=== PATIENT | female | born 1975 | race Caucasian/White ===

== ENCOUNTER → 2017-04-02 10:21 | Outpatient (CLI) | payer OTHER, SELFPAY ==
[2017-04-02 13:45] LABS: Color, Urine Yellow (Yellow); Glucose, Dipstick Normal (Normal); Ketone-Dipstick Negative (Negative); Leukocyte Esterase-Dipstick 100 /ul (Negative); Nitrite-Dipstick Negative (Negative); Occult Blood-Urine Negative /ul (Negative); Protein-Dipstick Negative (Negative); Urine Bilirubin Dipstick Negative (Negative); Urine Clarity Sl. Cloudy (Clear); Urine Urobilinogen Normal (Normal)
[2017-04-02 13:52] LABS: Absolute Lymphocyte Count 1.57 X10^3/ul (0.83-4.51); Absolute Neutrophil Count 4.9 X10^3/uL (2.0-7.7); Basophil# 0.02 X10^3/uL; Basophil% 0.3 % (0-1); Eosinophils% 1.4 % (0-5); Hematocrit 38.9 % (37-47); Hemoglobin 12.9 g/dl (12.0-15.0); Lymphocyte # 1.57 X10^3/ul (4.0); Lymphocyte % 22.1 % (19-41); Mean Corp Hgb Conc 33.2 g/gl (32-36); Mean Corpuscular Hgb 30.2 pg (27.0-32.0); Mean Corpuscular Volume 91.1 fL (81-99); Mean Platelet Vol. 11.3 fl (6.2-12.0); Monocyte# 0.48 X10^3/uL; Monocyte% 6.8 % (0-10); Neutrophil # 4.91 X10^3/uL (2.7-7.7); Neutrophil % 69.3 % (47-70); Platelet Count 257 K/mm3 (150-450); RBC Distribution Width CV 12.7 % (11.6-14.6); RBC Distribution Width SD 42.1 fl (35.1-43.9); Red Blood Count 4.27 M/mm3 (4.2-5.4); White Blood Count 7.1 K/mm3 (4.4-11.0)
[2017-04-02 13:53] LABS: POSITIVE COUNT NO; POSITIVE DIFFERENTIAL NO; POSITIVE MORPHOLOGY NO
[2017-04-02 14:08] LABS: Thyroid Stim Hormone (TSH) 1.06 uIU/mL (0.358-3.74)
[2017-04-02 14:17] LABS: Amphetamine Urine VISTA NEGATIVE (<1000 ng/mL); Barbiturate Urine VISTA NEGATIVE (< 200 ng/mL); Benzodiazepine Urine VISTA NEGATIVE (< 200 ng/mL); Cocaine Urine VISTA NEGATIVE (< 300 ng/mL); Ecstacy Urine VISTA NEGATIVE (< 500 ng/mL); Methadone Urine VISTA NEGATIVE (< 300 ng/mL); PCP Urine VISTA NEGATIVE (< 25 ng/mL); THC Urine VISTA NEGATIVE (< 50 ng/mL); Vista UDS pH Range 7
[2017-04-02 14:51] LABS: HIV - WCH Non-Reactive (Nonreactive); Rubella IgG 304.3 IU/mL
[2017-04-03 12:50] LABS: HEPATITIS B SURFACE AG Negative (Negative); Hep C Antibodies <0.1 s/co ratio (0.0-0.9)
[2017-04-09 03:55] LABS: Prenatal RPR NONREACTIVE (NONREACTIVE)
== END ==
PROVIDERS: Visit Provider Obstetrics & Gynecology
DX: Z34.81 Encounter for supervision of other normal pregnancy, first trimester (principal)
CPT/HCPCS: 36415; 80307; 81002; 84443; 85025; 86703; 86762; 86803; 87340

== ENCOUNTER → 2017-05-19 13:06 | Outpatient (CLI) | payer OTHER, SELFPAY ==
--- NOTE | 2017-05-19 13:08 | ECHOD_ITS ---
Reason For Study: bicuspid aortic valve Procedure This was a 2D Doppler, Color Flow transthoracic echocardiogram. Exam performed in department. Left Ventricle Normal LV size. Left ventricular systolic function is normal. The estimated ejection fraction is 60 %. No regional wall motion abnormalities noted. Right Ventricle Normal RV size. Normal systolic function. Atria Normal left atrium. Normal right atrium. Mitral Valve Normal mitral valve. Mild (1+) eccentric mitral valve insufficiency. Tricuspid Valve Normal tricuspid valve. Mild (1+) tricuspid valve insufficiency. Pulmonary artery systolic pressure is 26 mmHg. Aortic Valve Bicuspid aortic valve. There is no aortic stenosis. Pulmonic Valve Normal pulmonic valve. Great Vessels Normal aortic root. The pulmonary artery is normal size. Normal inferior vena cava. Pericardium/Pleural No pericardial effusion. MMode/2D Measurements & Calculations LVIDd: 4.9 cm IVSd: 0.91 cm LVOT diam: 1.9 cm LVIDs: 3.0 cm LVPWd: 0.96 cm LVOT area: 2.8 cm2 RVDd: 2.8 cm FS: 38.6 % Ao root diam: 2.5 cm LAV(MOD-bp): 39.2 ml LA A4 area: 16.4 cm2 LA dimension: 3.0 cm LAV(MOD-bp) Indexed: 23.7 ml/m2 LAV(MOD-sp2): 36.1 ml LAV(MOD-sp4): 41.2 ml RA A4 area: 16.2 cm2 Doppler Measurements & Calculations MV E max ivan: 83.6 cm/sec Lat Peak E' Ivan: 17.9 cm/sec Med Peak E' Ivan: 13.4 cm/sec MV A max ivan: 71.4 cm/sec E/E' lat: 4.7 E/E' med: 6.2 MV E/A: 1.2 Ao V2 max: 198.4 cm/sec LV V1 max: 142.9 cm/sec SV(LVOT): 74.9 ml Ao max P.7 mmHg LV V1 max P.2 mmHg Ao V2 mean: 137.5 cm/sec LV V1 mean P.0 mmHg Ao mean P.4 mmHg LV V1 mean: 93.3 cm/sec Ao V2 VTI: 39.5 cm LV V1 VTI: 27.0 cm NIKKI(I,D): 1.9 cm2 NIKKI(V,D): 2.0 cm2 PA V2 max: 108.1 cm/sec TR max ivan: 232.9 cm/sec TR max P.7 mmHg Interpretation Summary Normal LV size. Left ventricular systolic function is normal. The estimated ejection fraction is 60 %. Mild (1+) eccentric mitral valve insufficiency. Bicuspid aortic valve. There is no aortic stenosis. Ordering Physician: Maria Umana Referring Physician: Ana Rea Performed By: Yoli Hdz, VENTURA, RVT
== END ==
PROVIDERS: Family Provider Internal Medicine; PCP Internal Medicine; Visit Provider Obstetrics & Gynecology
DX: Q23.1 Congenital insufficiency of aortic valve (principal)
CPT/HCPCS: 93306

== ENCOUNTER → 2017-06-07 09:22 | Outpatient (CLI) | payer OTHER, SELFPAY | PROVIDERS: Family Provider Internal Medicine; PCP Internal Medicine | DX: O09.899 Supervision of other high risk pregnancies, unspecified trimester (principal); Z3A.00 Weeks of gestation of pregnancy not specified | CPT/HCPCS: 36415 ==

== ENCOUNTER → 2017-08-06 11:24 | Outpatient (CLI) | payer OTHER, SELFPAY ==
[2017-08-06 13:49] LABS: Hematocrit 33.4 % (37-47); Mean Corp Hgb Conc 32.9 g/gl (32-36); Mean Corpuscular Hgb 29.2 pg (27.0-32.0); Mean Corpuscular Volume 88.6 fL (81-99); Mean Platelet Vol. 11.2 fl (6.2-12.0); Platelet Count 238 K/mm3 (150-450); RBC Distribution Width CV 12.3 % (11.6-14.6); RBC Distribution Width SD 39.6 fl (35.1-43.9); Red Blood Count 3.77 M/mm3 (4.2-5.4); White Blood Count 8.1 K/mm3 (4.4-11.0)
[2017-08-06 13:50] LABS: Scan Indicated on CBC? Y/N NO
[2017-08-06 13:55] LABS: Glucose Challenge Gest 1H 50g 143 mg/dL (70-140)
== END ==
PROVIDERS: Visit Provider Obstetrics & Gynecology
DX: Z34.82 Encounter for supervision of other normal pregnancy, second trimester (principal)
CPT/HCPCS: 36415; 82950; 85027

== ENCOUNTER → 2017-08-18 08:12 | Outpatient (CLI) | payer OTHER, SELFPAY ==
[2017-08-18 09:14] LABS: Glucose GTT-Gestation. Fasting 92 mg/dL (<105)
[2017-08-18 10:57] LABS: Glucose GTT-Gestational 1 Hr 166 mg/dL (<190)
[2017-08-18 11:54] LABS: Glucose GTT-Gestational 2 Hr 161 mg/dL (<165)
[2017-08-18 12:52] LABS: Glucose GTT-Gestational 3 Hr 126 L (<145)
== END ==
PROVIDERS: Family Provider Internal Medicine; PCP Internal Medicine; Visit Provider Obstetrics & Gynecology
DX: O24.912 Unspecified diabetes mellitus in pregnancy, second trimester (principal); Z3A.00 Weeks of gestation of pregnancy not specified
CPT/HCPCS: 36415; 82951; 82952

== ENCOUNTER → 2017-09-27 08:53 | Outpatient (CLI) | payer OTHER, SELFPAY | PROVIDERS: Family Provider Internal Medicine; PCP Internal Medicine; Visit Provider Obstetrics & Gynecology Maternal & Fetal Medicine | DX: R31.29 Other microscopic hematuria (principal) | CPT/HCPCS: 87086; 87088 ==

== ENCOUNTER → 2017-10-14 19:00 | Outpatient (CLI) | payer OTHER, SELFPAY ==
[2017-10-14 20:30] LABS: Group B Strep DNA By PCR Negative (Negative); Internal Control PASS; Probe Check PASS; Specimen Processing Control PASS
== END ==
PROVIDERS: Family Provider Internal Medicine; PCP Internal Medicine; Visit Provider Obstetrics & Gynecology
DX: Z36.85 Encounter for antenatal screening for Streptococcus B (principal)
CPT/HCPCS: 87081; 87653

== ENCOUNTER 2017-10-21 17:29 | Outpatient (CLI) | payer OTHER, SELFPAY ==
[2017-10-21 17:43] VITALS: BMI 26.4
--- NOTE | 2017-10-21 20:00 | OB.TRI.NOTE ---
History of Present Illness Reason For Visit: NST Final ROBBIN: 11/06/17 Gestational age: 37 weeks 5 days History of Present Illness: 41yo @ 37 5/7wga with h/o GDM sent for NST. Allergies ibuprofen Allergy (Verified 10/20/17 12:09) Rash - Pertinent Past Medical History Medical History: Past Medical History (Last Reviewed 10/20/17 @ 12:10 by Maria Dickens) Bicuspid aortic valve (Chronic) HELLP syndrome MTHFR gene mutation Surgical History: Past Surgical History (Last Reviewed 10/20/17 @ 12:10 by Maria Dickens) History of Physical Exam Vitals: avss NST - FHR Rate Baby A Baseline: 130 Variability:: Moderate Accelerations:: 15 x 15 Decelerations:: None NST Reactive:: Yes FHR Category:: Category I Uterine Activity:: 03/17 Impression/Plan 41yo @ 37 5/7wga with reactive NST, CAt I FHR -d/c home
== END 2017-10-21 19:15 | disposition home or self-care (01) ==
LOC: WPOUT 17:29 → WP 17:31
PROVIDERS: Family Provider Internal Medicine; PCP Internal Medicine; Visit Provider Obstetrics & Gynecology
DX: O24.419 Gestational diabetes mellitus in pregnancy, unspecified control (principal); Z3A.37 37 weeks gestation of pregnancy
CPT/HCPCS: 59025

== ENCOUNTER 2017-11-02 05:30 | Inpatient (IN) | payer OTHER, SELFPAY ==
[2017-10-28 09:47] VITALS: BMI 26.3
[2017-11-02] VITALS (21 sets, daily range): BP systolic 103–139; BP diastolic 59–78; PULSE 56–103; RESP 15–18; TEMP 36.1–36.8; O2SAT 94–100
[2017-11-02] MEDS: Lactated Ringers 1,000 ML 999 ML IV (05:55)
[2017-11-02 06:23] LABS: Absolute Lymphocyte Count 1.91 X10^3/ul (0.83-4.51); Absolute Neutrophil Count 3.6 X10^3/uL (2.0-7.7); Basophil# 0.02 X10^3/uL; Basophil% 0.3 % (0-1); Eosinophil# 0.06 X10^3/uL; Hematocrit 32.5 % (37-47); Hemoglobin 10.2 g/dl (12.0-15.0); Lymphocyte # 1.91 X10^3/ul (4.0); Lymphocyte % 31.1 % (19-41); Mean Corp Hgb Conc 31.4 g/gl (32-36); Mean Corpuscular Hgb 25.2 pg (27.0-32.0); Mean Corpuscular Volume 80.2 fL (81-99); Monocyte# 0.55 X10^3/uL; Monocyte% 8.9 % (0-10); Neutrophil % 58.5 % (47-70); Platelet Count 187 K/mm3 (150-450); RBC Distribution Width CV 13.5 % (11.6-14.6); RBC Distribution Width SD 39.3 fl (35.1-43.9); Red Blood Count 4.05 M/mm3 (4.2-5.4); White Blood Count 6.2 K/mm3 (4.4-11.0)
[2017-11-02 06:27] LABS: Differential Indicated SCAN CRITERIA MET; POSITIVE COUNT NO; POSITIVE DIFFERENTIAL NO; POSITIVE MORPHOLOGY YES
[2017-11-02 06:35] LABS: Bedside Glucose 90 mg/dL (70-110)
[2017-11-02 06:38] LABS: International Normalized Ratio 0.9; Prothrombin Time (Protime)PT. 12.6 SECONDS (11.7-14.9)
[2017-11-02 06:39] LABS: Partial Thromboplast Time 29.7 Seconds (24.1-36.2)
[2017-11-02] MEDS: Lactated Ringers 1,000 ML 150 ML IV (07:19)
[2017-11-02] MEDS: Cefazolin 2 GM in 0.9% Normal Saline 100 ML IV (07:23)
[2017-11-02] MEDS: Sodium Citrate/Citric Acid 30 ML UDC PO (07:24)
[2017-11-02] MEDS: Oxytocin 30 units/NS 500 ml 30 UNITS/500 ML IV.SOLN 167 UNITS IV (07:48)
[2017-11-02 09:01] LABS: Bedside Glucose 102 mg/dL (70-110)
--- NOTE | 2017-11-02 09:05 | NURSING ---
Pt. post-op blood sugar obtained, reading was 102. Pt. laying in bed nursing .
[2017-11-02] MEDS: Ondansetron 4 MG/2 ML Vial IV (09:54)
[2017-11-02] MEDS: Ketorolac 30 MG/ML Syringe IV ×3 (11:51→23:50)
[2017-11-02] MEDS: 0.9% Saline Lock 10 ML Syringe IV (12:03)
[2017-11-02] MEDS: proMETHazine 25 MG/ML Syringe 12.5 MG IV (12:03)
--- NOTE | 2017-11-02 13:05 | PCM.OP.BLANK ---
Operative Report Date of Procedure: 11/02/17 PROCEDURE: Repeat C section. Preoperative diagnosis: 39 wk EGA Prior C section, planned repeat C section Gestational diabetes, polyhydramnios, suspected macrosomia Postop diagnosis: 39 wk EGA Prior C section, planned repeat C section Gestational diabetes, polyhydramnios, suspected macrosomia Anesthesia: Spinal, Dylon Busch MD Surgeon: Maria Umana MD Senior Manager Creative Services: KEEGAN Santoro EBL 600 cc Complications: none Drains: Packer draining clear yellow appearing urine Fluids: replacement LR Findings: At amniotomy, copious clear fluid was noted. Hankins viable male in vertex presentation. Apgars 9/9, Baby weight: 7# 14oz There was a normal appearing uterus, fallopian tubes and ovaries bilaterally. There were minimal filmy adhesions between the bladder and lower uterine segment. PATH: Routine cord gases were sent. Narrative account: After the risks, benefits and alternatives of the procedure were reviewed with the patient, informed consent was obtained. The patient was taken to the Operating room with an IV running, and placed in a seated position on the operating table for placement of the spinal. Once the spinal had been administered, she was briefly frog-legged for Packer catheter placement, and then repositioned to dorsal supine position with leftward displacement of the uterus, and prepped and draped in the usual sterile fashion. Once the spinal was deemed adequate, a Pfannenstiel skin incision was created using the knife (through the prior skin incision scar). The incision was carried down to the rectus fascia using the knife. The fascia was nicked in the midline. The fascial incision was extended bilaterally using curved Do scissors. The superior aspect of the fascial incision was grasped with Rhonda clamps and tented up and the underlying rectus abdominal muscles were dissected free. In a similar manner, the inferior aspect of the facial incision was grasped with Rhonda clamps tented up and the underlying rectus abdominal muscles were dissected free. The rectus abdominis muscles were in the midline and the peritoneum was identified and entered by blunt dissection high in the incision. The peritoneum was stretched laterally and a bladder blade was inserted. A bladder flap was created along the lower uterine segment with Metzenbaum scissors . The uterine incision was then created using Metzenbaum scissors. The operators fingertips were used to extend the uterine incision by blunt dissection in a caudad- cephalad orientation . Clear fluid was noted at amniotomy. The vertex was then delivered atraumatically through the incision. The OP and nares were bulb suctioned on the abdomen. The shoulders delivered easily . The cord clamped x two and cut. And the was handed off to the nurse awaiting delivery after briefly showing him to his parents. The baby had a spontaneous, vigorous cry. The placenta was then delivered. The uterus was repaired in place. The uterine incision was repaired with 1 Vicryl in a running locked fashion. A second imbricating layer was then placed, using 1 Monocryl in running nonlocked fashion. Bovie cautery was used to treat any bleeding areas . Excellent hemostasis was noted. The gutters were cleared of clots and debris and the incision at the uterus was inspected. Excellent hemostasis was noted. The peritoneal edges and rectus abdominis muscles were reapproximated in the midline with a continuous suture of 1 Vicryl. Excellent hemostasis was noted at the subfascial space The fascia was closed in a running nonlocked fashion with a Stratofix. The Subcutaneous fatty tissue was Bovie cauterized as needed for hemostasis. This layer was then reapproximated in a single layer closure of 3-0 Vicryl to eliminate space. The skin edges were closed in a Subcuticular stitch of 4-0 Monocryl. The incision was cleansed. A Mepilex dressing were applied to the skin . The patient was then transferred to the recovery room bed in stable condition after tolerating the procedure well. Sponge, lap, needle and instrument counts correct times two. Medications given preop and intraoperatively included: Ancef 2 gm IV given neurosurgical nurse practitioner to the operating room. The patient also received Pitocin given IV after cord clamp, and Toradol 30 mg IV times one. For a complete listing of medications given preop and intraoperatively, please see the anesthesia record.
--- NOTE | 2017-11-02 13:11 | PCM.DCCSEC ---
Discharge Diet: No Restrictions Discharge Activity: May not drive while taking narcotic pain medications., May Shower, May Take a Tub Bath May resume sexual activity in: 4-6 weeks Lifting Restrictions: 20 pounds Additional Activity Instructions:: Nothing in the vagina for 4-6 weeks. You may return to work/school in 6 weeks. Change Dressing in (Days):: 4 Remove Dressing in (days):: 4 Cleanse incision/area with: Soap & Water, Keep Dressing Clean & Dry Additional Instructions: If you experience any of the following, contact your healthcare provider. Bleeding that soaks a pad every hour for 2 hours Fever 100.4 or higher Unrelieved incision or abdominal pain Swelling, redness, discharge or bleeding from your incision Problems urinating (including inability to urinate or burning while urinating). Visual changes Severe headache Flu-like symptoms Pain or redness in one of both of your breasts Pain, warmth, tenderness or swelling in your legs, especially the calf area Frequent nausea and vomiting Symptoms of depression or anxiety If you experience any of the following, call 911 or go to the nearest Emergency Room. Chest pain Problems breathing Seizure activity Partial or complete paralysis of a body part, slurred speech, weakness or drooping of the face, or a sudden inability to walk or hold your balance Allergies/Adverse Reactions: Allergies ibuprofen Allergy (Verified 11/02/17 05:45) Rash Medications to take at Discharge Acetaminophen [Tylenol] 1,000 mg PO Q8H PRN tablet 11/02/17 Naproxen [Naprosyn] 250 - 500 mg PO Q8H PRN PRN #30 tab 11/02/17 Oxycodone [Oxyir] 5 - 10 mg PO Q4H PRN PRN 7 Days #20 tab 11/02/17 Vits [Prenatabs FA ] 1 tablet PO DAILY@1200 tablet 11/02/17 Senna/Docusate Sodium [Senokot-S] 1 tab PO BID #30 tab 11/02/17 The following prescriptions were given: Oxycodone [Oxyir] 5 - 10 mg PO Q4H PRN PRN 7 Days #20 tab PRN Reason: Mod-Severe Pain (4-12/15) Naproxen [Naprosyn] 250 - 500 mg PO Q8H PRN PRN #30 tab PRN Reason: Mild Pain (1-05/15) Senna/Docusate Sodium [Senokot-S] 1 tab PO BID #30 tab Follow-Up: Call to make an appointment with your doctor for an incision check in 1-2 weeks. You will also need a 6 week post- follow up appointment. Test results from this visit will be discussed in further detail at your follow-up appointment, if applicable. Please Follow Up With: Maria Umana MD - [phone] When: Call to make an appointment for an incision check in 2 weeks. Primary Care Physician: Ana Rea MD [Primary Care Provider] - Proposed Discharge Date: 11/05/17
[2017-11-02] MEDS: Lactated Ringers 1,000 ML 100 ML IV ×2 (14:10→23:51)
[2017-11-03] VITALS (8 sets, daily range): BP systolic 90–119; BP diastolic 55–76; PULSE 67–95; RESP 16–18; TEMP 35.8–36.8; O2SAT 96–100
[2017-11-03 06:21] LABS: Bedside Glucose 105 mg/dL (70-110)
[2017-11-03] MEDS: 0.9% Saline Lock 10 ML Syringe IV ×3 (06:28→23:44)
[2017-11-03] MEDS: Ketorolac 30 MG/ML Syringe IV ×4 (06:28→23:44)
[2017-11-03 06:30] LABS: Hematocrit 26.2 % (37-47); Mean Corp Hgb Conc 30.5 g/gl (32-36); Mean Corpuscular Hgb 24.7 pg (27.0-32.0); Mean Corpuscular Volume 80.9 fL (81-99); Mean Platelet Vol. 11.5 fl (6.2-12.0); Platelet Count 150 K/mm3 (150-450); RBC Distribution Width CV 13.7 % (11.6-14.6); Red Blood Count 3.24 M/mm3 (4.2-5.4); White Blood Count 8.2 K/mm3 (4.4-11.0)
[2017-11-03 06:38] LABS: Scan Indicated on CBC? Y/N NO
--- NOTE | 2017-11-03 08:09 | PCM.PN.OB ---
Subjective: POD#1 Repeat C/S, suspected macrosomia Doing well. Milk in. Had an episode of flu like shaking chills last night. NO fevers. Nursing well. Pain control adequate. No concerns voiced. Asking questions about whether or not would have likely been successful. - Physical Exam General: Alert, Oriented x3, Cooperative, No apparent distress HEENT: Atraumatic Neck: Supple Abdomen: Soft - Fundus firm at umbilicus, minimally tender c/w postop status. Skin: Incision - Mepilex CDI. Surrounding skin w/o erythema. no signs of skin irritation. Neurological: Cranial nerves II-XII grossly intact Psych/Mental Status: Normal Affect Vital Signs Temp Pulse Resp BP Pulse Ox 96.9 F L 76 18 90/55 L 97 11/03/17 05:40 11/03/17 05:40 11/03/17 05:40 11/03/17 05:40 11/03/17 05:40 Oxygen Delivery Method Room Air Weight: 71.8 kg Body Mass Index (BMI) 26.3 Intake and Output for Last 24 Hours 11/01/17 11/02/17 11/03/17 23:59 23:59 23:59 Intake Total 602.6 / 602.6 200 / 200 Output Total 550 / 550 1750 / 1750 Balance 52.6 / 52.6 -1550 / -1550 Laboratory Tests Past 24 Hrs 11/03/17 06:15 WBC 8.2 RBC 3.24 L Hgb 8.0 L Hct 26.2 L MCV 80.9 L MCH 24.7 L MCHC 30.5 L RDW 13.7 RDW Differential 41.0 Plt Count 150 MPV 11.5 POC Glucose 11/03/11/02/17 06:12 08:56 POC Glucose 105 102 Medical Necessity - Tobacco Use Smoking Status: Never smoker Assessment/Plan All Active Problems (Last Reviewed 10/20/17 @ 12:10 by Maria Dickens) Maxillary sinusitis (Acute) Acute bacterial conjunctivitis (Acute) Contact dermatitis (Resolved) POD#1 Repeat C/S, suspected macrosomia. Gestational DM #1 Postop. Stable postop. Inc diet and activity as tolerated. Begin po meds, D/C fournier for voiding trial. #2 Iron deficiency anemia now with superimposed acute blood loss anemia. -- ferrous gluconate 1 po bid. Continue care
[2017-11-03] MEDS: Ferrous Gluconate 325 MG Tablet PO ×2 (11:52→18:06)
[2017-11-03] MEDS: Prenatal Vits Tablet 1 TABLET PO (14:56)
--- NOTE | 2017-11-04 02:21 | NURSING ---
Reviewed and agreed with charting by Anitha BAY. Taking over full pt care at this time.
[2017-11-04 03:00] VITALS: BP 111/78; PULSE 67; RESP 16; TEMP 36.8; O2SAT 100
[2017-11-04] MEDS: Acetaminophen 500 MG Tablet 1000 MG PO (04:14)
[2017-11-04] MEDS: Ketorolac 30 MG/ML Syringe IV (06:23)
[2017-11-04] MEDS: 0.9% Saline Lock 10 ML Syringe IV (06:23)
--- NOTE | 2017-11-04 07:22 | PCM.PN.OB ---
Subjective: pod#2 Repeat C section Doing well. Plans to stay. Circumcision to be done outpatient 2/2 baby's anatomy. Sore getting in and out of bed. Has not tried abdominal binder yet. Up and moving without dizziness. no N/V. No further chills - Physical Exam General: Alert, Oriented x3, Cooperative, No apparent distress HEENT: Atraumatic Neck: Supple Abdomen: Soft - Fundus firm NT at umbilicus Skin: Incision - CDI. Mepilex without shadow drainage. No skin irritation noted. Neurological: Cranial nerves II-XII grossly intact Psych/Mental Status: Normal Affect Vital Signs Temp Pulse Resp BP Pulse Ox 98.2 F 67 16 111/78 100 11/04/17 03:00 11/04/17 03:00 11/04/17 03:00 11/04/17 03:00 11/04/17 03:00 Oxygen Delivery Method Room Air Weight: 71.8 kg Body Mass Index (BMI) 26.3 Intake and Output for Last 24 Hours 11/02/23 10/11/04/17 23:59 23:59 23:59 Intake Total 602.6 / 602.6 200 / 200 Output Total 550 / 550 2450 / 2450 Balance 52.6 / 52.6 -2250 / -2250 Medical Necessity - Tobacco Use Smoking Status: Never smoker Assessment/Plan All Active Problems (Last Reviewed 10/20/17 @ 12:10 by Maria Dickens) Maxillary sinusitis (Acute) Acute bacterial conjunctivitis (Acute) Contact dermatitis (Resolved) POD#2 Repeat C/S, suspected macrosomia. Gestational DM #1 Postop. Stable postop. #2 Iron deficiency anemia now with superimposed acute blood loss anemia. Stable. ASX -- ferrous gluconate 1 po bid. x one month Continue care
[2017-11-04 09:25] VITALS: BP 113/72; PULSE 69; RESP 16; TEMP 36.1; O2SAT 99
[2017-11-04] MEDS: Prenatal Vits Tablet 1 TABLET PO (09:34)
[2017-11-04] MEDS: Ferrous Gluconate 325 MG Tablet PO ×2 (09:35→18:52)
[2017-11-04] MEDS: oxyCODONE 5 MG Tablet PO ×3 (12:21→23:42)
[2017-11-04 14:20] VITALS: BP 116/70; PULSE 70; RESP 16; TEMP 36.3; O2SAT 99
[2017-11-04 20:15] VITALS: BP 105/57; PULSE 60; RESP 16; TEMP 36.4
[2017-11-05 01:20] VITALS: BP 108/57; PULSE 60; RESP 16; TEMP 36.6
[2017-11-05] MEDS: Naproxen 250 MG Tablet PO (01:42)
[2017-11-05] MEDS: oxyCODONE 5 MG Tablet PO ×2 (03:57→10:30)
[2017-11-05 07:59] VITALS: BP 125/55; PULSE 70; RESP 16; TEMP 36.4; O2SAT 99
[2017-11-05] MEDS: Ferrous Gluconate 325 MG Tablet PO (08:00)
--- NOTE | 2017-11-05 08:07 | PCM.PN.OB ---
Subjective: POD#3 Repeat C/S 39 wk, suspected macrosomia. GDM Doing well. Ready to go home today. Baby cluster fed last pm and states sent to nursery for a few hrs to allow sleep. Spouse home with the twins. Everyone planning for her to be home today. Twins anxious to have mom and baby brother home. - Physical Exam General: Alert, Oriented x3, Cooperative, No apparent distress HEENT: Atraumatic Neck: Supple Abdomen: Soft - Fundus firm NT at umbilcus Skin: Incision - Mepilex dry, intact. No skin irritation noted. Neurological: Cranial nerves II-XII grossly intact Psych/Mental Status: Normal Affect Vital Signs Temp Pulse Resp BP Pulse Ox 97.8 F 60 16 108/57 L 99 11/05/17 01:20 11/05/17 01:20 11/05/17 01:20 11/05/17 01:20 11/04/17 14:20 Oxygen Delivery Method Room Air Weight: 71.8 kg Body Mass Index (BMI) 26.3 Intake and Output for Last 24 Hours 11/03/11/04/17 11/05/17 23:59 23:59 23:59 Intake Total 200 / 200 Output Total 2450 / 2450 Balance -2250 / -2250 Medical Necessity - Tobacco Use Smoking Status: Never smoker Assessment/Plan All Active Problems (Last Reviewed 10/20/17 @ 12:10 by Maria Dickens) Maxillary sinusitis (Acute) Acute bacterial conjunctivitis (Acute) Contact dermatitis (Resolved) POD#3 Repeat C/S, suspected macrosomia. Gestational DM #1 Postop. Stable postop. #2 Iron deficiency anemia now with superimposed acute blood loss anemia. Stable. ASX -- ferrous gluconate 1 po bid. x one month Dischg home today.
--- NOTE | 2017-11-05 08:11 | PCM.DC.SUM ---
Discharge Date and Diagnosis Date of Admission: 11/02/17 - 39 wk prior C/s planned repeat. Date of Discharge: 11/05/17 - Secondary Discharge Diagnosis Chronic Problems (Last Reviewed 10/20/17 @ 12:10 by Maria Dickens) Bicuspid aortic valve (Chronic) Hospital Course and Treatment Operations: - - Repeat C/S Summary of Care Provided: The patient is a 41 year old female presents for repeat C/S. Suspected macrosomia. GDM. Declines BTO. Admitted on 11/02/17 for repeat C/S. Procedure uncomplicated. Delivered 7# 14 oz male. Ap 11/14 Acute blood loss anemia superimposed on iron deficiency anemia AVSS clinically stable with benign exam. Iron bid started and will continue for one mo postop. Home on POD#3 in stable condition. RTO in 2 wk for postop incision check. Activity and wound care reviewed. All questions answered to her satisfaction. Discharge Diet: No Restrictions Discharge Activity: May not drive while taking narcotic pain medications., May Shower, May Take a Tub Bath May resume sexual activity in: 4-6 weeks Additional Activity Instructions:: Nothing in the vagina for 4-6 weeks. You may return to work/school in 6 weeks. Change Dressing in (Days):: 4 Remove Dressing in (days):: 4 Cleanse incision/area with: Soap & Water, Keep Dressing Clean & Dry Home Medications: Medications to take at Discharge Acetaminophen [Tylenol] 1,000 mg PO Q8H PRN tablet 11/02/17 Naproxen [Naprosyn] 250 - 500 mg PO Q8H PRN PRN #30 tab 11/02/17 Oxycodone [Oxyir] 5 - 10 mg PO Q4H PRN PRN 7 Days #20 tab 11/02/17 Vits [Prenatabs FA ] 1 tablet PO DAILY@1200 tablet 11/02/17 Senna/Docusate Sodium [Senokot-S] 1 tab PO BID #30 tab 11/02/17 Ferrous Gluconate 325 mg PO BIDCM #60 tab 11/03/17 Following Prescrptions Were Given to Patient: Oxycodone [Oxyir] 5 - 10 mg PO Q4H PRN PRN 7 Days #20 tab PRN Reason: Mod-Severe Pain (4-12/15) Naproxen [Naprosyn] 250 - 500 mg PO Q8H PRN PRN #30 tab PRN Reason: Mild Pain (-05/15) Ferrous Gluconate 325 mg PO BIDCM #60 tab Senna/Docusate Sodium [Senokot-S] 1 tab PO BID #30 tab Primary Care Physician: Ana Rea MD [Primary Care Provider] - Please Follow Up With: Maria Umana MD - [phone] When: Call to make an appointment for an incision check in 2 weeks. Medical Necessity - Tobacco Use Smoking Status: Never smoker Meaningful Use Info Meaningful Use Diagnoses (Choose all that apply): None applicable
[2017-11-05 12:21] VITALS: BP 124/74; PULSE 71; RESP 16; TEMP 36.7; O2SAT 98
== END 2017-11-05 14:10 | disposition home or self-care (01) | DRG 765 ==
PROVIDERS: Admitting Provider Obstetrics & Gynecology; Family Provider Internal Medicine; PCP Internal Medicine; Visit Provider Obstetrics & Gynecology
PROC: 10D00Z1 Extraction of Products of Conception, Low, Open Approach (ICD-10-PCS; CPT 59514; principal; 2017-11-02 07:15)
DX: O34.211 Maternal care for low transverse scar from previous cesarean delivery (principal); O99.413 Diseases of the circulatory system complicating pregnancy, third trimester; Q23.1 Congenital insufficiency of aortic valve; D62 Acute posthemorrhagic anemia; E72.12 Methylenetetrahydrofolate reductase deficiency; O99.283 Endocrine, nutritional and metabolic diseases complicating pregnancy, third trimester; O99.03 Anemia complicating the puerperium; O99.02 Anemia complicating childbirth; D50.9 Iron deficiency anemia, unspecified; O40.3XX0 Polyhydramnios, third trimester, not applicable or unspecified; O24.425 Gestational diabetes mellitus in childbirth, controlled by oral hypoglycemic drugs; Z79.82 Long term (current) use of aspirin; Z3A.39 39 weeks gestation of pregnancy; Z37.0 Single live birth
CPT/HCPCS: 82962; 85025; 85027; 85610; 85730; 86850; 86900; 99218; J7120; A4216; G0378; J2405

== ENCOUNTER → 2017-12-15 13:16 | Outpatient (CLI) | payer OTHER, SELFPAY ==
[2017-12-23 15:19] LABS: HPV Reflexed? NOT INDICATED
== END ==
PROVIDERS: Visit Provider Obstetrics & Gynecology
DX: Z12.4 Encounter for screening for malignant neoplasm of cervix (principal)
CPT/HCPCS: 88175; G0145

== ENCOUNTER → 2018-02-01 07:36 | Outpatient (CLI) | payer OTHER, SELFPAY ==
[2018-01-24 13:57] VITALS: BMI 21.8
--- NOTE | 2018-02-01 10:41 | RAD_ITS ---
HISTORY: BILATERAL N/T IN UPPER EXTREMITIES, WORSE IN THE LEFT, WEAKNESS COMPARISON: None FINDINGS: XR Spine Cervical 2 or 3 Views: Straightening of the cervical spine with mild reversal of the normal cervical lordosis at the C4-5 level. Cervical vertebra are normal in height. No fracture or suspicious bony lesion. Cervical disc space heights appear preserved. The posterior elements are intact. No spondylolisthesis. The C1-C2 relationship appears normal. RAD/Cerv Spine 2 or 3 Views IMPRESSION: 1. Loss of the normal cervical lordosis related to paravertebral muscle spasm versus patient positioning. Otherwise negative exam. at 0242 Reported and signed by: Keshawn Page MD Electronically Signed: Keshawn Page, at 2:40 EST Tel , Service support ,
--- NOTE | 2018-02-01 11:06 | NEURO ---
NCS and/or EMG Patient Report Ordering Doctor: Caleb Haq DATE OF SERVICE: 02/01/18 This is a bilateral upper extremity nerve conduction study and a left upper extremity EMG performed on this 42-year-old female who prior had what she describes as clumsiness in her upper extremities. This apparently worsened during . She delivered to 12 weeks ago, and has continued to experience worsening symptoms. Denies pain. She does describe symptoms as being worse in her fourth and fifth digits worse on the left side. She is right-handed. She does drive extensively back and forth to work. Bilateral upper extremity sensory and motor nerve conduction studies are performed. There is very mild prolongation of the median motor distal latencies however this is likely clinically insignificant. The median sensory, ulnar motor and sensory and radial sensory tonsils are normal bilaterally. The median and ulnar F-wave latencies are normal bilaterally. Left upper extremity needle electromyography is performed. Muscles evaluated included the first dorsal interosseous, abductor pollicis brevis, brachioradialis, biceps, triceps and deltoid muscles. All muscles demonstrated normal insertional activity with absence of pathologic spontaneous activity. Imodium potential recruitment pattern and amplitude is normal in all muscles tested. Impression: This is a normal elective his like study. Symptoms may be consistent with a mild resolving ulnar neuropathy associated with however this does not explain her intermittent discoordination. Further neuro imaging is recommended.
[2018-02-01 12:03] LABS: Anion Gap 7 (5-15); BUN 21 mg/dL (7-18); BUN/Creat Ratio 24.1 RATIO (10-20); Calcium,Total 8.7 mg/dL (8.5-10.1); Chloride 107 mmol/L (98-107); Creatinine, Serum 0.87 mg/dL (0.55-1.02); EST Glomerular Filtration Rate 77 mL/min (>60); Est Glom Filt Rate - Afr Amer 93 mL/min (>60); Glucose 83 mg/dL (74-106); Potassium 4.1 mmol/L (3.5-5.1); Sodium Level 142 mmol/L (136-145)
--- OUTSIDE RECORDS SUMMARY | 2018-03-15 20:16 | XMS RPT_ITS ---
:1975 Author Organization OHIP Support Name Relationship Address Phone DIANE OCONNOR INTERIORS Unavailable [id number] + [place] [address] SESAR ROCHAIN Unavailable [address] + [place] [address] [facility] Unavailable [address] + [place] [address] MARY GRACE TAE Unavailable [address] + [place] [address] [facility] Unavailable [address] + [place] [address] MARY GRACE TAE Unavailable [address] + [place] [address] DIANE ANASTASIA INTERIORS Unavailable [address] + [place] [address] MARY GRACE TAE Unavailable [address] + [place] [address] [facility] Unavailable [address] + [place] [address] MARY GRACE TAE Unavailable [address] + [place] [address] [facility] Unavailable [address] + [place] [address] MARY GRACE TAE Unavailable [address] + [place] [address] MARY GRACE SHYANNE Unavailable [address] + [place] [address] MARY GRACE TAE Unavailable [address] + [place] [address] MARY GRACE SHYANNE Unavailable [address] + [place] [address] MARY GRACE, TAE Unavailable [address] + [place] [address] MARY GRACE, SHYANNE Unavailable [address] + [place] [address] MARY GRACE, TAE Unavailable [address] + [place] [address] MARY GRACE, SHYANNE Unavailable [address] + [place] [address] MARY GRACE, TAE Unavailable [address] + [place] [address] [facility] Unavailable [address] + [place] [address] MARY GRACE, TAE Unavailable [address] + [place] [address] [facility] Unavailable [address] + [place] [address] MARY GRACE, TAE Unavailable [address] + [place] [address] MARY GRACE, SHYANNE Unavailable [address] + [place] [address] MARY GRACE, TAE Unavailable [address] + [place] [address] MARY GRACE, SHYANNE Unavailable [address] + [place] [address] MARY GRACE, TAE Unavailable [address] + [place] [address] [facility] Unavailable [address] + [place] [address] MARY GRACE, TAE Unavailable [address] + [place] [address] MARY GRACE, SHYANNE Unavailable [address] + [place] [address] MARY GRACE, TAE Unavailable [address] + [place] [address] MARY GRACE, SHYANNE Unavailable [address] + [place] [address] MARY GRACE, TAE Unavailable [address] + [place] [address] MARY GRACE, SHYANNE Unavailable [address] + [place] [address] MARY GRACE, TAE Unavailable [address] + [place] [address] MARY GRACE, SHYANNE Unavailable [address] + [place] [address] MARY GRACE, TAE Unavailable [address] + [place] [address] [facility] Unavailable [address] + [place] [address] MARY GRACE, TAE Unavailable [address] + [place] [address] MARY GRACE, SHYANNE Unavailable [address] + [place] [address] MARY GRACE, TAE Unavailable [address] + [place] [address] MARY GRACE, SHYANNE Unavailable [address] + [place] [address] MARY GRACE, TAE Unavailable [address] + [place] [address] MARY GRACE, SHYANNE Unavailable [address] + [place] [address] MARY GRACE, TAE Unavailable [address] + [place] [address] MARY GRACE, SHYANNE Unavailable [address] + [place] [address] MARY GRACE, TAE Unavailable [address] + [place] [address] MARY GRACE, SHYANNE Unavailable [address] + [place] [address] MARY GRACE, TAE Unavailable [address] + [place] [address] MARY GRACE, SHYANNE Unavailable [address] + [place] [address] MARY GRACE, TEA Unavailable [address] + [place] [address] [facility] Unavailable [address] + [place] [address] MARY GRACE, TAE Unavailable [address] + [place] [address] MARY GRACE, SHYANNE Unavailable [address] + [place] [address] MARY GRACE, TAE Unavailable [address] + [place] [address] MARY GRACE, SHYANNE Unavailable [address] + [place] [address] MARY GRACE, TAE Unavailable [address] + [place] [address] MARY GRACE, SHYANNE Unavailable [address] + [place] [address] MARY GRACE, TAE Unavailable [address] + [place] [address] AMRY GRACE, SHYANNE Unavailable [address] + [place] [address] MARY GRACE, TAE Unavailable [address] + [place] [address] MARY GRACE, SHYANNE Unavailable [address] + [place] [address] MARY GRACE, TAE Unavailable [address] + [place] [address] MARY GRACE, SHYANNE Unavailable [address] + [place] [address] MARY GRACE, TAE Unavailable [address] + [place] [address] MARY GRACE, SHYANNE Unavailable [address] + [place] [address] MARY GRACE, TAE Unavailable [address] + [place] [address] MARY GRACE, SHYANNE Unavailable [address] + [place] [address] MARY GRACE, TAE Unavailable [address] + [place] [address] MARY GRACE, SHYANNE Unavailable [address] + [place] [address] MARY GRACE, TAE Unavailable [address] + [place] [address] DIANE ANASTASIA INTERIORS Unavailable [address] + [place] [address] MARY GRACE, TAE Unavailable [address] + [place] [address] [facility] Unavailable [address] + [place] [address] MARY GRACE, TAE Unavailable [address] + [place] [address] MARY GRACE, SHYANNE Unavailable [address] + [place] [address] MARY GRACE, TAE Unavailable [address] + [place] [address] MARY GRACE, SHYANNE Unavailable [address] + [place] [address] MARY GRACE, TAE Unavailable [address] + [place] [address] [facility] Unavailable [address] + [place] [address] MARY GRACE, TAE Unavailable [address] + [place] [address] MARY GRACE, SHYANNE Unavailable [address] + [place] [address] MARY GRACE, TAE Unavailable [address] + [place] [address] [facility] Unavailable [address] + [place] [address] MARY GRACE, TAE Unavailable [address] + [place] [address] [facility] Unavailable [address] + [place] [address] MARY GRACE, TAE Unavailable [address] + [place] [address] [facility] Unavailable [address] + [place] [address] MARY GRACE, TAE Unavailable [address] + [place] [address] [facility] Unavailable [address] + [place] [address] MARY GRACE, TAE Unavailable [address] + [place] [address] MARY GRACE, SHYANNE Unavailable [address] + [place] [address] MARY GRACE, TAE Unavailable [address] + [place] [address] MARY GRACE, SHYANNE Unavailable [address] + [place] [address] MARY GRACE, TAE Unavailable [address] + [place] [address] [facility] Unavailable [address] + [place] [address] MARY GRACE, TAE Unavailable [address] + [place] [address] [facility] Unavailable [address] + [place] [address] MARY GRACE, TAE Unavailable [address] + [place] [address] [facility] Unavailable [address] + [place] [address] MARY GRACE, TAE Unavailable [address] + [place] [address] [facility] Unavailable [address] + [place] [address] MARY GRACE, TAE Unavailable [address] + [place] [address] [facility] Unavailable [address] + [place] [address] MARY GRACE, TAE Unavailable [address] + [place] [address] Care Team Providers Name Role Phone PANFILO VALVERDE Attending Unavailable JONES RM Referring Unavailable BONEZZI, BELKIS Primary Care Unavailable PANFILO VALVERDE Attending Unavailable PANFILO VALVERDE Referring Unavailable BONEZZI, BELKIS Primary Care Unavailable CHRIS COELHO Attending Unavailable JONES RM Referring Unavailable BONEZZI, BELKIS Primary Care Unavailable JESSENIA LAWSON Attending Unavailable JONES RM Referring Unavailable BONEZZI, BELKIS Primary Care Unavailable LULU, JESESNIA Melara Attending Unavailable JONES RM Referring Unavailable BONEZZI, BELKIS Primary Care Unavailable LULUVERENICE Sandoval Attending Unavailable JONES RM Referring Unavailable BONEZZI, BELKIS Primary Care Unavailable LULU, JESSENIA [place] Attending Unavailable JONES RM Referring Unavailable BONEZZI, BELKIS Primary Care Unavailable LULU, JESSENIA [place] Attending Unavailable JONES RM Referring Unavailable BONEZZI, BELKIS Primary Care Unavailable LULU, JESSENIA [place] Attending Unavailable JONES RM Referring Unavailable BONEZZI, BELKIS Primary Care Unavailable BACSOHAIL, PANFILO Garsia Attending Unavailable JONES RM Referring Unavailable BONEZZI, BELKIS Primary Care Unavailable BACSOHAIL, PANFILO Garsia Attending Unavailable JONES RM Referring Unavailable BONEZZI, BELKIS Primary Care Unavailable ABRAM, PANFILO Garsia Attending Unavailable JONES RM Referring Unavailable BONEZZI, BELKIS Primary Care Unavailable CHRIS COELHO Attending Unavailable JONES RM Referring Unavailable BONEZZI, BELKIS Primary Care Unavailable CHRIS COELHO Attending Unavailable JONES RM Referring Unavailable BONEZZI, BELKIS Primary Care Unavailable ABRAM, PANFILO Garsia Attending Unavailable JONES RM Referring Unavailable BONEZZI, BELKIS Primary Care Unavailable BACSOHAIL, PANFILO Garsia Attending Unavailable JONES RM Referring Unavailable BONEZZI, BELKIS Primary Care Unavailable LULU, JESSENIA [place] Attending Unavailable JONES RM Referring Unavailable BONEZZI, BELKIS Primary Care Unavailable LLUU, JESSENIA [place] Attending Unavailable JONES RM Referring Unavailable BONEZZI, BELKIS Primary Care Unavailable LULU, JESSENIA Melara Attending Unavailable JONES RM Referring Unavailable BONEZZI, BELKIS Primary Care Unavailable LULU, JESSENIA Melara Attending Unavailable JONES RM Referring Unavailable BONEZZI, BELKIS Primary Care Unavailable SUSHIL WOMACK Attending Unavailable JONES RM Referring Unavailable BONEZZI, BELKIS Primary Care Unavailable SUSHIL WOMACK Attending Unavailable JONES RM Referring Unavailable BONEZZI, BELKIS Primary Care Unavailable LULU, JESSENIA [place]ara Attending Unavailable BENEKOS, JONES L Referring Unavailable BONEZZI, BELKIS Primary Care Unavailable JESSENIA LAWSON Attending Unavailable BENEKOS, JONES L Referring Unavailable BONEZZI, BELKIS Primary Care Unavailable CHRIS COELHO Attending Unavailable BENEKOS, JONES L Referring Unavailable BONEZZI, BELKIS Primary Care Unavailable CHRIS COELHO Attending Unavailable BENEKOS, JONES L Referring Unavailable BONEZZI, BELKIS Primary Care Unavailable PANFILO VALVERDE Attending Unavailable BENEKOS, JONES L Referring Unavailable BONEZZI, BELKIS Primary Care Unavailable PANFILO VALVERDE Attending Unavailable BENEKOS, JONES L Referring Unavailable BONEZZI, BELKIS Primary Care Unavailable SUSHIL WOMACK Attending Unavailable BENEKOS, JONES L Referring Unavailable BONEZZI, BELKIS Primary Care Unavailable SUSHIL WOMACK Attending Unavailable BENEKOS, JONES L Referring Unavailable BONEZZI, BELKIS Primary Care Unavailable Yovani Mcneal Attending Unavailable Bonezzi, Belkis Referring Unavailable Bonezzi, Belkis Primary Care Unavailable Polo Busch Attending Unavailable DOCTOR, OUT OF TOWN Referring Unavailable Bonezzi, Belkis Primary Care Unavailable Referred, Self Attending Unavailable Benekos, Jones Attending Unavailable Benekos, Jones Attending Unavailable Benekos, Jones Attending Unavailable Benekos, Jones Referring Unavailable Bonezzi, Belkis Primary Care Unavailable Suzy Purcell Attending Unavailable Eliel Wild Attending Unavailable Bonezzi, Belkis Referring Unavailable Bonezzi, Belkis Primary Care Unavailable ALEX BRITTON Attending Unavailable ALEX BRITTON Referring Unavailable Bonezzi, Belkis Primary Care Unavailable Eliel Wild Attending Unavailable Benekos, Jones Referring Unavailable Benekos, Jones Attending Unavailable Benekos, Jones Attending Unavailable Benekos, Jones Referring Unavailable Bonezzi, Belkis Primary Care Unavailable Yovani Mcneal Attending Unavailable Bonezzi, Belkis Referring Unavailable Bonezzi, Belkis Primary Care Unavailable Jessenia Lawson Attending Unavailable Jessenia Lawson Referring Unavailable Bonezzi, Belkis Primary Care Unavailable Benekos, Jones Attending Unavailable Bonezzi, Belkis Primary Care Unavailable Benekos, Jones Referring Unavailable Patricio Mccrary Attending Unavailable Bonezzi, Belkis Referring Unavailable Bonezzi, Belkis Primary Care Unavailable Adams-Santhosh, Summer Attending Unavailable Sasha, Summer Referring Unavailable Bonezzi, Belkis Primary Care Unavailable Benechristinas, Jones Admitting Unavailable Benekos, Jones Attending Unavailable Bonezzi, Belkis Primary Care Unavailable Benekos, Jones Referring Unavailable Yovani Mcneal Attending Unavailable Bonezzi, Belkis Referring Unavailable Bonezzi, Belkis Primary Care Unavailable Benekos, Jones Attending Unavailable Benekos, Jones Attending Unavailable Oleghe, Efewongbe Attending Unavailable Oleghe, Efewongbe Referring Unavailable Oleghe, Efewongbe Attending Unavailable Oleghe, Efewongbe Referring Unavailable Oleghe, Efewongbe Primary Care Unavailable PROBLEMS PROBLEMS DATE TYPE CONDITION / CODE ATTENDING STATUS SOURCE 02/01/2018 Unknown G56.22 - Lesion of Oleghe, Active [place] ulnar nerve, left [facility] upper limb / Hospital G56.22(ICD-10) Repository 02/01/2018 Unknown R20.0 - Anesthesia of Oleg[place], Active [place] skin / R20.0(ICD-10) [facility] Repository 02/01/2018 Unknown R20.2 - Paresthesia Oleghe, Active [place] of skin / [facility] R20.2(ICD-10) Hospital Repository 02/01/2018 Unknown R29.898 - Other Oleghe, Active [place] symptoms and signs [facility] involving the Hospital musculoskeletal Repository system / R29.898(ICD-10) 01/24/2018 Unknown G62.9 - Oleghe, Active [place] Polyneuropathy, [facility] unspecified / Hospital G62.9(ICD-10) Repository 01/01/2018 Active Encounter for NA Active [place] immunization / Clinic Main Z23(ICD-10) [place] Repository 12/17/2017 Unknown Z86.32 - Personal Jones Rm Active [place] history of Community gestational diabetes Hospital / Z86.32(ICD-10) Repository 12/15/2017 Unknown Z12.4 - Encounter for Jones Rm Active [place] screening for Community malignant neoplasm of Hospital cervix / Repository Z12.4(ICD-10) 11/05/2017 Unknown O82 - Encounter for Jones Rm Active [place] delivery Community without indication / Hospital O82(ICD-10) Repository 11/05/2017 Unknown R10.9 - Unspecified Dong Jones Active [place] abdominal pain / Community R10.9(ICD-10) Hospital Repository 09/10/2017 Unknown H10.30 - Unspecified Yovani Mcneal Active [place] acute conjunctivitis, Community unspecified eye / Hospital H10.30(ICD-10) Repository 08/06/2017 Unknown Z34.82 - Encounter Jones Rm Active [place] for supervision of Community other normal Hospital , second Repository trimester / Z34.82(ICD-10) 06/28/2017 Unknown O09.899 - Supervision ALEX BRITTON Active [place] of other high risk Community pregnancies, Hospital unspecified trimester Repository / O09.899(ICD-10) 05/26/2017 Unknown 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, [place]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 / Hospital Q23.1(ICD-10) Repository 04/02/2017 Unknown Z34.81 - Encounter Dong Jones Active [place] for supervision of Community other normal Hospital , first Repository trimester / Z34.81(ICD-10) 03/17/2017 Unknown Z11.3 - Encounter for Jones Rm Active [place] screening for Community infections with a Hospital predominantly sexual Repository mode of transmission / Z11.3(ICD-10) 03/12/2017 Unknown N91.2 - Amenorrhea, Polo Busch Active [place] unspecified / Community N91.2(ICD-10) Hospital Repository 03/17/2017 Unknown L25.9 - Unspecified Yovani Mcneal Active [place] contact dermatitis, Community unspecified cause / Hospital L25.9(ICD-10) Repository PROCEDURES PROCEDURES No Procedure Records FoundRESULTS RESULTS NCS AND/OR EMG Observed: 02/02/2018 Status: F Source: [place] PATIENT 4:38 PM [facility] REPOSITORY [facility] Pulmonary Services/Neurology [address] [place] [address] MR#: [id number] Acct: [id number] Name: SHYANNE ROCHA Rep #: [id number] : 1975 42 From: Adrian Mancia MD Referring Dr: Caleb Haq MD Status: REG CLI Ordering Dr: Date: Location: PSN Sex: F C NCS and/or EMG Patient Report Ordering Doctor: Caleb Haq DATE OF SERVICE: 02/01/18 This is a bilateral upper extremity nerve conduction study and a left upper extremity EMG performed on this 42-year-old female who prior had what she describes as clumsiness in her upper extremities. This apparently worsened during . She delivered to 12 weeks ago, and has continued to experience worsening symptoms. Denies pain. She does describe symptoms as being worse in her fourth and fifth digits worse on the left side. She is right-handed. She does drive extensively back and forth to work. Bilateral upper extremity sensory and motor nerve conduction studies are performed. There is very mild prolongation of the median motor distal latencies however this is likely clinically insignificant. The median sensory, ulnar motor and sensory and radial sensory tonsils are normal bilaterally. The median and ulnar F-wave latencies are normal bilaterally. Left upper extremity needle electromyography is performed. Muscles evaluated included the first dorsal interosseous, abductor pollicis brevis, brachioradialis, biceps, triceps and deltoid muscles. All muscles demonstrated normal insertional activity with absence of pathologic spontaneous activity. Imodium potential recruitment pattern and amplitude is normal in all muscles tested. Impression: This is a normal elective his like study. Symptoms may be consistent with a mild resolving ulnar neuropathy associated with however this does not explain her intermittent discoordination. Further neuro imaging is recommended. 02/02/18 1638 <Electronically signed by Adrian Mancia MD> Date Adrian Mancia MD CC: Caleb Haq MD; Adrian Mancia MD Date Dictated: 02/01/181105 Date Transcribed: 02/01/181105 Fish Checker: ANANYA Signed BASIC METABOLIC Collected: 02/01/2018 Status: F Source: [place] PROFILE (BMP) 11:07 AM [facility] REPOSITORY TYPE CODE TESTS RESULT OUT OF RANGE REFERENCE UNITS LAB L501.0100 74-106 mg/dL Normal GLU 83 Result Comment: Please note revised GLUCOSE reference range effective 2017. LAB L501.1000 7-18 mg/dL High BUN 21 LAB L501.1100 0.55-1.02 mg/dL Normal CREAT,SERUM 0.87 Result Comment: The validity of the calculated GFR AND GFRAA in patients over 70 years has not been determined. Clinical correlation is essential. LAB L501.1110 >60 mL/min Normal EST GFR 77 Result Comment: Non- GFR Calc LAB L501.1115 >60 mL/min Normal EST GFR - AA 93 Result Comment: GFR Calc LAB L501.1300 10-20 RATIO High BUN/CRE 24.1 LAB L501.2200 8.5-10.1 mg/dL CA Normal 8.7 LAB L501.5300 136-145 mmol/L NA Normal 142 LAB L501.5600 3.5-5.1 mmol/L K Normal 4.1 LAB L501.5900 98-107 mmol/L CL Normal 107 LAB L501.6100 21.0-32.0 mmol/L Normal CO2 28.0 LAB L501.6200 5-15 Normal GAP 7 Performed By: #### L500.2500 #### [facility] [address] [place], [address] CERV SPINE 2 OR 3 Observed: 02/01/2018 Status: F Source: [facility] 10:41 AM [facility] REPOSITORY [facility] Imaging Services [address] [place] [address] Cerv Spine 2 or 3 Views MR#: [id number] Acct: [id number] Name: SHYANNE ROCHA Rep #: [id number] : 1975 F 42 From: Keshawn Page MD PCP: Caleb Haq MD Status: REG CLI Study: Cerv Spine 2 or 3 Views Date of Exam: 02/01/18 Exam# [id number] Ordering Dr: Elan Murray [facility] HISTORY: BILATERAL N/T IN UPPER EXTREMITIES, WORSE IN THE LEFT, WEAKNESS COMPARISON: None FINDINGS: XR Spine Cervical 2 or 3 Views: Straightening of the cervical spine with mild reversal of the normal cervical lordosis at the C4-5 level. Cervical vertebra are normal in height. No fracture or suspicious bony lesion. Cervical disc space heights appear preserved. The posterior elements are intact. No spondylolisthesis. The C1-C2 relationship appears normal. RAD/Cerv Spine 2 or 3 Views IMPRESSION: 1. Loss of the normal cervical lordosis related to paravertebral muscle spasm versus patient positioning. Otherwise negative exam. at 0242 Reported and signed by: Keshawn Page MD Electronically Signed: Keshawn Page, at 2:40 EST Tel , Service support , CC: Caleb Haq MD; Elan Murray NP Fish Checker: Signed INTERNAL MEDICINE Observed: 01/25/2018 Status: F Source: [facility] OFFICE VISIT 5:12 PM [facility] [address] [place] [address] [address] [place] [address] OFFICE VISIT Date of Service: 01/24/18 MR#: [id number] Acct: [id number] Name: SHYANNE ROCHA Rep #: [id number] : 1975 Provider: Caleb Haq MD Age/Sex: 42/F Location: [facility] [place] Status: Signed Intake Vital Signs01/24/18 Height 5 ft 5 in Intake Visit Reasons: EST CARE Chief Complaint: numbness in hands Is patient in pain?: No Allergies adhesive tape Allergy (Verified 01/24/18 14:06) unknown ibuprofen Allergy (Verified 11/26/17 17:58) Rash Medications fexofenadine 60 mg tablet 60 mg PO BID 01/24/18 [History Confirmed 01/24/18] Is last menstrual period known: Yes PFSH Medical History Seasonal allergies (Chronic) Bicuspid aortic valve (Chronic) History of gestational diabetes (Acute) HELLP syndrome (Chronic) MTHFR gene mutation (Chronic) Surgical History History of (Chronic) Family History Mother Hypertension Diabetes Father Hypertension Diabetes Multiple sclerosis Anxiety Aunt Breast cancer Anxiety Grandfather Alcoholism Social History Smoking Status: Never smoker alcohol intake: never substance use type: does not use what type of physical activity do you participate in: running, aerobics frequency: 3-4 times per week HPI HPI Chief Complaint: numbness in hands Details: SHYANNE ROCHA, is a 42yo F who presents to the office today to establish care. She also has some concerns. She reports a chronic history of numbness in her hands especially her left little finger which has been going on for years however, worsened during her last . Had a delivery of her son Sima about 12 weeks ago but symptoms have persisted. She reports occasionally dropping objects and has noted difficulty/problems holding onto things and writing. She denies neck pain, arm pain or swelling. She also denies weakness of any other extremity. No known history of thyroid disease or rheumatoid arthritis. She also denies bowel or bladder incontinence. ROS Const Constitutional: No weight change, body ache, chills, fatigue, sleep problems, fever(s), change in appetite, snoring, weakness, frequent falls, headache(s) or excessive sweating Eyes Eyes: No change in vision, eye pain, light sensitivity or blurry vision ENT ENT: No headache(s), abnormal hearing, ear pain, tinnitus, nasal congestion, sore throat or neck pain Resp Respiratory: No snoring, cough, shortness of breath or wheezing Cardio Cardiology: No excessive sweating, chest pain at rest, chest pain with exertion, shortness of breath, dyspnea on exertion, palpitations, orthopnea or lightheadedness Gastro GI: No abdominal pain, change in bowel habits, constipation, diarrhea, vomiting, nausea/dyspepsia or cramping Genitourinary-Female: No burning urination, painful urination, urinary incontinence, urinary frequency, abnormal vaginal bleeding, pelvic pain or other Musc Musculoskeletal: Positive for numbness (left hand, has been dropping things frequently) and tingling; no neck pain, abnormal walking, joint pain, back pain or limited range of motion Skin Skin: No redness, dry skin, itching, lesions, wounds or rash Neuro Neurology: Positive for numbness (left hand, has been dropping things frequently) and tingling; no weakness, frequent falls, headache(s), abnormal hearing, abnormal walking, abnormal speech, dizziness or memory loss Psych Psychiatric: No change in appetite, No memory loss, No anxiety, No depression, No Thoughts of harming yourself/Others Endo Endocrine: No fatigue, excessive sweating, cold intolerance, increased thirst/drinking, heat intolerance, flushing or increased hunger Aller/Imm Allergy/Immunologic: No wheezing, itchy eyes, hives or seasonal allergy symptoms Pradeep/Lymp Hematologic/Lymphatic: No easy bleeding, easy bruising or enlarged lymph nodes Exam Const General: cooperative, no acute distress, well developed Orientation: alert, awake, oriented x3 HENMT Head: atraumatic, normocephalic, normal to inspection Ears: hearing grossly normal bilaterally Resp Effort AND Inspection: normal respiratory effort, able to speak in complete sentences Auscultation: Bilateral: Clear to Auscultation Cardio Rate: regular rate Rhythm: regular rhythm Heart Sounds: S1 normal, S2 normal GI Palpation: soft, no hepatosplenomegaly Neuro General: alert, awake, oriented x3, moves all extremities, CN's II-XI intact bilaterally Cranial Nerves: CN's II-XI intact bilaterally Sensory Exam: no sensory deficits noted Extrem General: no clubbing, cyanosis or edema Psych Appearance: grossly normal Mental Status: mental status grossly normal Mood: congruent mood Affect: normal affect Assessment AND Plan 1. Numbness and tingling in both hands R20.0; R20.2 Plan Both hands, however worse on the left. Predominantly of her fifth digit. No neck pain or other neurological deficits. Examination without any significant findings. Possibilities include ulnar nerve neuropathy EMG and cervical x-ray ordered. Passive and active exercises also recommended. Follow-up with results. 2. Seasonal allergies J30.2 Plan Stable. No concerns at this time. Will monitor. This note was generated with [employer] software. It may contain incorrect words, spelling, and punctuation that were not noted in checking the note before signing. Plan Detail Other Orders Orders: Coding Level of Care Code Off vis,new,level 3 Diagnoses Numbness and tingling in both hands R20.0; R20.2 Seasonal allergies J30.2 01/25/18 1712 <Electronically signed by Caleb Haq MD> Date Caleb Haq MD Cosigner Signature: Date (if applicable) CC: CNNURSE Observed: 01/01/2018 Status: COMPLETED Source: [place] 12:00 PM [facility] REPOSITORY Nurse Visit (PEDSWS) SHYANNE ROCHA ([id number]) 1975 F Date Time Provider Department 01/01/18 12:00 PM NURSE/[facility] During your visit today, we recorded the following information about you: Temperature 97.3 degrees Annmarie Jimenez, RN, RN 01/01/2018 9:40 AM Signed 42 year old female here for INACTIVATED INFLUENZA VACCINE. 1778-0623 Season Patient is identified by name and date of : Yes [] CONTRAINDICATIONS color enhanced section Age less than 6 months? No Allergy to eggs, chicken, chicken feathers, or chicken dander? No Allergy to thimerosal (a preservative) or formaldehyde, gelatin? No History of severe reaction to any vaccine component or a previous dose of influenza vaccination? No History of Guillain-Benzonia Syndrome within 6 weeks after a previous influenza vaccine? No Patient is not moderately or severely ill? No Current temperature greater or equal to 100.4F? No History of Bone Marrow Transplant prior 6 months or solid organ transplant in the past 3 months ? No History of fainting after a prior injection or medical procedure? No- ? If patient has fainted in the past, the CDC recommends sitting or lying down for 15 minutes after the vaccination. [] VERIFICATION color enhanced section Was the answer Yes for any of the above contraindications? No contraindications present. Acceptable to proceed with vaccine. Patient/guardian agrees the above answers are true to the best of their knowledge? Yes Flu vaccine information sheet given? Yes See immunization activity in [facility] for details of immunizations adminstered today. Patient age: [age] year old For The 1676-8687 Flu Season 6-35 months old: Fluzone 0.25 ml - IM (Preservative Free) 3 years of age: Fluzone 0.5 ml - IM (Preservative Free) 3 years and older: Fluzone 0.5 ml- IM-(with Preservatives) 65+ years old: 2-49 years old Fluzone High-Dose 0.5 ml - IM (Preservative Free) FLUMIST- intranasal REMEMBER: If patient is less than 9 years of age and this is the first vaccine of Influenza to be received in any flu season, they should receive a second dose in one months time. Referring Provider: SELF [200] Allergies As of Date: 01/01/2018 Noted Allergy Reaction Environmental allergies [Other] 05/11/2006 Comments: Mold, grasses, ragweed IBUPROFEN 11/18/2004 4 - Hives Date Reviewed: 05/18/2006 Reviewed by: Ambreen Posada Rn - Reviewed Reason for Visit: Imm/Inj [58] Cmt: Flu Vaccine Primary Visit Diagnosis:Need for vaccination [Z23] Order(s):INFLUENZA VAC QUADRIVALENT PRSRV FREE AGE 3 YRS + IM [[id number]] Order #: [id number] Prescriptions as of 01/01/2018 Sig: FEXOFENADINE 180 MG TABLET take one tablet daily as need* NASONEX 50 MCG/ACTUATION SPRAY 2 sprays to each nostril once* MULTIVITAMIN TABLET Take one(1) tablet daily. Problem List As Of Date 01/01/2018 Noted Resolved ALLERGIC RHINITIS NOS [J30.9] INVALID FOR* Encounter Status:Closed by ANNMARIE JIMENEZ on 01/01/18 PROGRESS Observed: 01/01/2018 Status: COMPLETED Source: [place] 9:39 AM [facility] [place] REPOSITORY HNO ID: [id number] Author: Annmarie (Gage) GAGE Jimenez Service: (none) Author Type: Registered Nurse Type: Progress Notes Filed: 01/01/2018 9:40 AM Note Text: 42 year old female here for INACTIVATED INFLUENZA VACCINE. 9691-3219 Season Patient is identified by name and date of : Yes [] CONTRAINDICATIONS color enhanced section Age less than 6 months? No Allergy to eggs, chicken, chicken feathers, or chicken dander? No Allergy to thimerosal (a preservative) or formaldehyde, gelatin? No History of severe reaction to any vaccine component or a previous dose of influenza vaccination? No History of Guillain-Benzonia Syndrome within 6 weeks after a previous influenza vaccine? No Patient is not moderately or severely ill? No Current temperature greater or equal to 100.4F? No History of Bone Marrow Transplant prior 6 months or solid organ transplant in the past 3 months ? No History of fainting after a prior injection or medical procedure? No- ? If patient has fainted in the past, the CDC recommends sitting or lying down for 15 minutes after the vaccination. [] VERIFICATION color enhanced section Was the answer Yes for any of the above contraindications? No contraindications present. Acceptable to proceed with vaccine. Patient/guardian agrees the above answers are true to the best of their knowledge? Yes Flu vaccine information sheet given? Yes See immunization activity in [facility] for details of immunizations adminstered today. Patient age: [age] year old For The 0368-4392 Flu Season 6-35 months old: Fluzone 0.25 ml - IM (Preservative Free) 3 years of age: Fluzone 0.5 ml - IM (Preservative Free) 3 years and older: Fluzone 0.5 ml- IM-(with Preservatives) 65+ years old: 2-49 years old Fluzone High-Dose 0.5 ml - IM (Preservative Free) FLUMIST- intranasal REMEMBER: If patient is less than 9 years of age and this is the first vaccine of Influenza to be received in any flu season, they should receive a second dose in one months time. PAP I-G W/RFX HRHPV Collected: 12/15/2017 Status: F Source: [place] 10:15 AM [facility] REPOSITORY Order Comment: CYTOLOGY INFORMATION: - CLINICAL INFORMATION: - DATE LMP/MENOPAUSE: NURSING LMP - COLLECTION VIAL: Thin Prep Vial - SURGICAL SUPPLY ASSISTANT SOURCE: CERVICAL/ENDOCERVICAL - COLLECTION TECHNIQUE: BRUSH/SPATULA Specimen Comment: Source.............Cervix;Endocervix Specimen Comment: Dates / Results....LMP NURSING Specimen Comment: Other..............Lactating Specimen Comment: No. of containers..01 ThinPrep Vial Specimen Comment: A duplicate report has been generated due to demographic Specimen Comment: updates. TYPE CODE TESTS RESULT OUT OF RANGE REFERENCE UNITS LAB L7400.0800 . Normal DIAGN Comment Result Comment: NEGATIVE FOR INTRAEPITHELIAL LESION AND MALIGNANCY. LAB L7400.0900 . Normal ADEQ Comment Result Comment: Satisfactory for evaluation. Endocervical and/or squamous metaplastic cells (endocervical component) are present. LAB L7400.1400 . Normal PERFORM Comment Result Comment: Lori Ahmadi, Appraiser Auditor (ASCP) LAB L7400.2575 . Normal TEST METHOD Comment Result Comment: This liquid based ThinPrep(R) pap test was screened with the use of an image guided system. LAB L7400.2600 . Normal . COMM LAB L7400.2700 . Normal PAPSMR Comment Result Comment: The Pap smear is a screening test designed to aid in the detection of premalignant and malignant conditions of the uterine cervix. It is not a diagnostic procedure and should not be used as the sole means of detecting cervical cancer. Both false-positive and false-negative reports do occur. LAB L7400.2800 . Normal HPV RFLX Comment Result Comment: The HPV DNA reflex criteria were not met with this specimen result therefore, no HPV testing was performed. Performed at: - [facility] [id number] Oil Extractor: Tiffany Miller MD, Phone: [phone] Performed By: #### L7400.0350 #### [facility] (refer to report for specific site) refer to report for address and phone number URGENT CARE VISIT Observed: 11/26/2017 Status: F Source: [place] REPORT 6:21 PM [facility] REPOSITORY [facility] [address] [place] [address] OFFICE VISIT Date of Service: 11/26/17 MR#: [id number] Acct: [id number] Name: SHYANNE ROCHA Rep #: [id number] : 1975 Provider: Yovani FRAZIER Age/Sex: 41/F Location: [facility] Status: Signed Intake Vital Signs11/26/17 Height 5 ft 5 in Intake Visit Reasons: sinus infection Chief Complaint: sinus congestion Allergies ibuprofen Allergy (Verified 11/26/17 17:58) Rash Medications Acetaminophen [Tylenol] 1,000 mg PO Q8H PRN tab 11/02/17 [Rx Confirmed 11/26/17] Naproxen [Naprosyn] 250 - 500 mg PO Q8H PRN PRN #30 tab 11/02/17 [Rx Confirmed 11/26/17] Oxycodone [Oxyir] 5 - 10 mg PO Q4H PRN PRN 7 Days #20 tab 11/02/17 [Rx Confirmed 11/26/17] Vits [Prenatabs FA ] 1 tab PO DAILY@1200 tab 11/02/17 [Rx Confirmed 11/26/17] Senna/Docusate Sodium [Senokot-S] 1 tab PO BID #30 tab 11/02/17 [Rx Confirmed 11/26/17] Ferrous Gluconate 325 mg PO BIDCM #60 tab 11/03/17 [Rx Confirmed 11/26/17] PFSH Medical History Bicuspid aortic valve (Chronic) HELLP syndrome (Chronic) MTHFR gene mutation (Chronic) Surgical History History of (Chronic) Family History Mother Hypertension Father Hypertension Diabetes Multiple sclerosis Social History Smoking Status: Never smoker alcohol intake: never HPI HPI Chief Complaint: sinus congestion Details: SHYANNE MARY GRACE, is a 41 F who presents to the office today for sinus congestion, drainage and cough for the past 5 days. Patient describes her cough as dry and nonproductive and denies hemoptysis, shortness of breath or difficulty breathing. No fever, chills, sweats. No nausea, vomiting, diarrhea. No other associated symptoms or alleviating/aggravating factors. ROS Const Constitutional: Positive for headache(s); no fever(s), chills, night sweats or abnormal sleep pattern ENT ENT: Positive for headache(s), nasal congestion, sinus pressure, sinus pain and nasal discharge; no ear pain or sore throat Resp Respiratory: Positive for cough Cough: Yes non-productive; no shortness of breath, hemoptysis, wheezing or pain with cough Cardio Cardiology: No shortness of breath, irregular heart rhythm or fast heart rate Neuro Neurology: Positive for headache(s); no confusion Psych Psychiatric: No abnormal sleep pattern, No confusion Aller/Imm Allergy/Immunologic: No wheezing Exam Const General: cooperative, healthy appearing [facility] Head: normal to inspection Ears: hearing grossly normal bilaterally, TM's normal bilaterally, EAC's normal Nose: nasal discharge purulent Face and sinus: sinus tenderness frontal and maxillary Mouth: oral mucosae normal Throat: abnormal tonsil bilaterally, postnasal drainage Resp Effort AND Inspection: normal respiratory effort Auscultation: Bilateral: Clear to Auscultation Cardio Palpation: normal PMI Rate: regular rate Rhythm: regular rhythm Neuro General: alert, CN's II-XI intact bilaterally Psych Appearance: grossly normal Mental Status: mental status grossly normal Assessment AND Plan Problems 1. URI, acute J06.9 Status Acute Plan Encouraged to get plenty of rest, drink lots of clear liquids, and use Tylenol or Ibuprofen (unless contraindicated) for fever and comfort. Patient also educated on other symptomatic management techniques. To be seen in 7-10 days if no improvement; sooner if worsening of symptoms. Patient advised of potential red flags and when appropriate report to the ED. Patient verbalized understanding of all the above. Coding Level of Care Code Off vis,est,level 3 Diagnoses URI, acute J06.9 11/26/17 6961 <Electronically signed by Yovani FRAZIER> Date Yovani Ponce Signature: Date (if applicable) CC: DISCHARGE SUMMARY Observed: 11/05/2017 Status: F Source: [place] 8:14 AM [facility] REPOSITORY [facility] Medical Records Department [address] [place] [address] Discharge Summary 11/05/17 0811 MR#: [id number] Acct: [id number] Name: SHYANNE ROCHA Rep #: [id number] : 1975 41 From: Jones Rm MD PCP: Belkis Rea MD Status: ADM IN Y Location: [place] [address] Discharge Date and Diagnosis Date of Admission: 11/02/17 - 39 wk prior C/s planned repeat. Date of Discharge: 11/05/17 - Secondary Discharge Diagnosis Chronic Problems (Last Reviewed 10/20/17 @ 12:10 by Jones Dickens) Bicuspid aortic valve (Chronic) Hospital Course and Treatment Operations: - - Repeat C/S Summary of Care Provided: The patient is a 41 year old female presents for repeat C/S. Suspected macrosomia. GDM. Declines BTO. Admitted on 11/02/17 for repeat C/S. Procedure uncomplicated. Delivered 7# 14 oz male. Ap 9/9 Acute blood loss anemia superimposed on iron deficiency anemia AVSS clinically stable with benign exam. Iron bid started and will continue for one mo postop. Home on POD#3 in stable condition. RTO in 2 wk for postop incision check. Activity and wound care reviewed. All questions answered to her satisfaction. Discharge Diet: No Restrictions Discharge Activity: May not drive while taking narcotic pain medications., May Shower, May Take a Tub Bath May resume sexual activity in: 4-6 weeks Additional Activity Instructions:: Nothing in the vagina for 4-6 weeks. You may return to work/school in 6 weeks. Change Dressing in (Days):: 4 Remove Dressing in (days):: 4 Cleanse incision/area with: Soap AND Water, Keep Dressing Clean AND Dry Home Medications: Medications to take at Discharge Acetaminophen [Tylenol] 1,000 mg PO Q8H PRN tablet 11/02/17 Naproxen [Naprosyn] 250 - 500 mg PO Q8H PRN PRN #30 tab 11/02/17 Oxycodone [Oxyir] 5 - 10 mg PO Q4H PRN PRN 7 Days #20 tab 11/02/17 Vits [Prenatabs FA ] 1 tablet PO DAILY@1200 tablet 11/02/17 Senna/Docusate Sodium [Senokot-S] 1 tab PO BID #30 tab 11/02/17 Ferrous Gluconate 325 mg PO BIDCM #60 tab 11/03/17 Following Prescrptions Were Given to Patient: Oxycodone [Oxyir] 5 - 10 mg PO Q4H PRN PRN 7 Days #20 tab PRN Reason: Mod-Severe Pain (4-10/10) Naproxen [Naprosyn] 250 - 500 mg PO Q8H PRN PRN #30 tab PRN Reason: Mild Pain (1-3/10) Ferrous Gluconate 325 mg PO BIDCM #60 tab Senna/Docusate Sodium [Senokot-S] 1 tab PO BID #30 tab Primary Care Physician: Belkis Rea MD [Primary Care Provider] - Please Follow Up With: Jones Rm MD - [phone] When: Call to make an appointment for an incision check in 2 weeks. Medical Necessity - Tobacco Use Smoking Status: Never smoker Meaningful Use Info Meaningful Use Diagnoses (Choose all that apply): None applicable 11/05/17813 <Electronically signed by Jones Rm MD> Date Jones Rm MD Cosigner Signature (if applicable): Date CC: Belkis Rea MD; Jones Rm MD Signed CBC-COMPLETE BLOOD CNT Collected: 11/03/2017 Status: F Source: [place] NO DIFF 6:15 AM [facility] REPOSITORY Order Comment: Comments: Day #1 Reason for Laboratory Test TYPE CODE TESTS RESULT OUT OF RANGE REFERENCE UNITS LAB L100.1000 4.4-11.0 K/mm3 Normal WBC 8.2 LAB L100.1200 4.2-5.4 M/mm3 Low RBC 3.24 LAB L100.1300 12.0-15.0 g/dl Low HGB 8.0 LAB L100.1400 37-47 % Low HCT 26.2 LAB L100.1500 81-99 fL Low MCV 80.9 LAB L100.1600 27.0-32.0 pg Low MCH 24.7 LAB L100.1700 32-36 g/gl Low MCHC 30.5 LAB L100.1810 11.6-14.6 % Normal RDW CV 13.7 LAB L100.1820 35.1-43.9 fl Normal RDW SD 41.0 LAB L100.1900 150-450 K/mm3 Normal PLT 150 LAB L100.2000 6.2-12.0 fl Normal MPV 11.5 Performed By: #### L100.0500 #### [facility] [address] [place], [address] BEDSIDE GLUCOSE Collected: 11/03/2017 Status: F Source: [place] 6:12 AM [facility] REPOSITORY TYPE CODE TESTS RESULT OUT OF RANGE REFERENCE UNITS LAB L501.080 70-110 mg/dL Normal BEDSIDE GLU 105 Result Comment: MANAGEMENT OF PATIENT CARE PER NURSING PROTOCOL Performed By: #### L501.080 #### [facility] Point of Care [address] [place] [address] DISCHARGE INSTRUCTION Observed: 11/02/2017 Status: F Source: [place] 1:19 PM [facility] REPOSITORY [facility] Medical Records Department [address] [place] [address] Instructions for Home/Discharge Instructions 11/02/17 1311 MR#: [id number] Acct: [id number] Name: SHYANNE ROCHA Rep #: [id number] : 1975 41 From: Jones Rm MD PCP: Belkis Rea MD Status: ADM IN Discharge Diet: No Restrictions Discharge Activity: May not drive while taking narcotic pain medications., May Shower, May Take a Tub Bath May resume sexual activity in: 4-6 weeks Lifting Restrictions: 20 pounds Additional Activity Instructions:: Nothing in the vagina for 4-6 weeks. You may return to work/school in 6 weeks. Change Dressing in (Days):: 4 Remove Dressing in (days):: 4 Cleanse incision/area with: Soap AND Water, Keep Dressing Clean AND Dry Additional Instructions: If you experience any of the following, contact your healthcare provider. * Bleeding that soaks a pad every hour for 2 hours * Fever 100.4 or higher * Unrelieved incision or abdominal pain * Swelling, redness, discharge or bleeding from your incision * Problems urinating (including inability to urinate or burning while urinating). * Visual changes * Severe headache * Flu-like symptoms * Pain or redness in one of both of your breasts * Pain, warmth, tenderness or swelling in your legs, especially the calf area * Frequent nausea and vomiting * Symptoms of depression or anxiety If you experience any of the following, call 911 or go to the nearest Emergency Room. * Chest pain * Problems breathing * Seizure activity * Partial or complete paralysis of a body part, slurred speech, weakness or drooping of the face, or a sudden inability to walk or hold your balance Allergies/Adverse Reactions: Allergies ibuprofen Allergy (Verified 11/02/17 05:45) Rash Medications to take at Discharge Acetaminophen [Tylenol] 1,000 mg PO Q8H PRN tablet 11/02/17 Naproxen [Naprosyn] 250 - 500 mg PO Q8H PRN PRN #30 tab 11/02/17 Oxycodone [Oxyir] 5 - 10 mg PO Q4H PRN PRN 7 Days #20 tab 11/02/17 Vits [Prenatabs FA ] 1 tablet PO DAILY@1200 tablet 11/02/17 Senna/Docusate Sodium [Senokot-S] 1 tab PO BID #30 tab 11/02/17 The following prescriptions were given: Oxycodone [Oxyir] 5 - 10 mg PO Q4H PRN PRN 7 Days #20 tab PRN Reason: Mod-Severe Pain (4-12/15) Naproxen [Naprosyn] 250 - 500 mg PO Q8H PRN PRN #30 tab PRN Reason: Mild Pain (-05/15) Senna/Docusate Sodium [Senokot-S] 1 tab PO BID #30 tab Follow-Up: Call to make an appointment with your doctor for an incision check in 1-2 weeks. You will also need a 6 week post- follow up appointment. Test results from this visit will be discussed in further detail at your follow-up appointment, if applicable. Please Follow Up With: Jones Rm MD - [phone] When: Call to make an appointment for an incision check in 2 weeks. Primary Care Physician: Belkis Rea MD [Primary Care Provider] - Proposed Discharge Date: 11/05/17 11/02/17 1319 <Electronically signed by Jones Rm MD> Date Jones Rm MD CC: Belkis Rea MD OPERATIVE REPORT Observed: 11/02/2017 Status: F Source: [place] 1:11 PM [facility] REPOSITORY [facility] Medical Records Department [address] [place] [id number] Operative Report 11/02/17 1305 MR#: [id number] Acct: [id number] Name: SHYANNE ROCHA Rep #: [id number] : 1975 41 From: Jones Rm MD PCP: Belkis Rea MD Status: ADM IN Location: [id number] Operative Report Date of Procedure: 11/02/17 PROCEDURE: Repeat C section. Preoperative diagnosis: 39 wk EGA Prior C section, planned repeat C section Gestational diabetes, polyhydramnios, suspected macrosomia Postop diagnosis: 39 wk EGA Prior C section, planned repeat C section Gestational diabetes, polyhydramnios, suspected macrosomia Anesthesia: Spinal, Dylon Busch MD Surgeon: Jones Rm MD Solution Make Up Operator: KEEGAN Santoro EBL 600 cc Complications: none Drains: Packer draining clear yellow appearing urine Fluids: replacement LR Findings: At amniotomy, copious clear fluid was noted. Hankins viable male in vertex presentation. Apgars 9/9, Baby weight: 7# 14oz There was a normal appearing uterus, fallopian tubes and ovaries bilaterally. There were minimal filmy adhesions between the bladder and lower uterine segment. PATH: Routine cord gases were sent. Narrative account: After the risks, benefits and alternatives of the procedure were reviewed with the patient, informed consent was obtained. The patient was taken to the Operating room with an IV running, and placed in a seated position on the operating table for placement of the spinal. Once the spinal had been administered, she was briefly frog-legged for Packer catheter placement, and then repositioned to dorsal supine position with leftward displacement of the uterus, and prepped and draped in the usual sterile fashion. Once the spinal was deemed adequate, a Pfannenstiel skin incision was created using the knife (through the prior skin incision scar). The incision was carried down to the rectus fascia using the knife. The fascia was nicked in the midline. The fascial incision was extended bilaterally using curved Do scissors. The superior aspect of the fascial incision was grasped with Rhonda clamps and tented up and the underlying rectus abdominal muscles were dissected free. In a similar manner, the inferior aspect of the facial incision was grasped with Rhonda clamps tented up and the underlying rectus abdominal muscles were dissected free. The rectus abdominis muscles were in the midline and the peritoneum was identified and entered by blunt dissection high in the incision. The peritoneum was stretched laterally and a bladder blade was inserted. A bladder flap was created along the lower uterine segment with Metzenbaum scissors . The uterine incision was then created using Metzenbaum scissors. The operators fingertips were used to extend the uterine incision by blunt dissection in a caudad- cephalad orientation . Clear fluid was noted at amniotomy. The vertex was then delivered atraumatically through the incision. The OP and nares were bulb suctioned on the abdomen. The shoulders delivered easily . The cord clamped x two and cut. And the infant was handed off to the nurse awaiting delivery after briefly showing him to his parents. The baby had a spontaneous, vigorous cry. The placenta was then delivered. The uterus was repaired in place. The uterine incision was repaired with 1 Vicryl in a running locked fashion. A second imbricating layer was then placed, using 1 Monocryl in running nonlocked fashion. Bovie cautery was used to treat any bleeding areas . Excellent hemostasis was noted. The gutters were cleared of clots and debris and the incision at the uterus was inspected. Excellent hemostasis was noted. The peritoneal edges and rectus abdominis muscles were reapproximated in the midline with a continuous suture of 1 Vicryl. Excellent hemostasis was noted at the subfascial space The fascia was closed in a running nonlocked fashion with a Stratofix. The Subcutaneous fatty tissue was Bovie cauterized as needed for hemostasis. This layer was then reapproximated in a single layer closure of 3-0 Vicryl to eliminate space. The skin edges were closed in a Subcuticular stitch of 4-0 Monocryl. The incision was cleansed. A Mepilex dressing were applied to the skin . The patient was then transferred to the recovery room bed in stable condition after tolerating the procedure well. Sponge, lap, needle and instrument counts correct times two. Medications given preop and intraoperatively included: Ancef 2 gm IV given conference planner to the operating room. The patient also received Pitocin given IV after cord clamp, and Toradol 30 mg IV times one. For a complete listing of medications given preop and intraoperatively, please see the anesthesia record. 11/02/17 1311 <Electronically signed by Jones Rm MD> Date Jones Rm MD CC: Belkis Rea MD; Jones Rm MD Signed BEDSIDE GLUCOSE Collected: 11/02/2017 Status: F Source: [place] 8:56 AM [facility] REPOSITORY TYPE CODE TESTS RESULT OUT OF RANGE REFERENCE UNITS LAB L501.080 70-110 mg/dL Normal BEDSIDE GLU 102 Result Comment: MANAGEMENT OF PATIENT CARE PER NURSING PROTOCOL Performed By: #### L501.080 #### [facility] Point of Care [address] [place] [address] CBC W/DIFF, AUTOMATED Collected: 11/02/2017 Status: F Source: JERAMY 6:05 AM [facility] REPOSITORY TYPE CODE TESTS RESULT OUT OF RANGE REFERENCE UNITS LAB L100.1000 4.4-11.0 K/mm3 Normal WBC 6.2 LAB L100.1200 4.2-5.4 M/mm3 Low RBC 4.05 LAB L100.1300 12.0-15.0 g/dl Low HGB 10.2 LAB L100.1400 37-47 % Low HCT 32.5 LAB L100.1500 81-99 fL Low MCV 80.2 LAB L100.1600 27.0-32.0 pg Low MCH 25.2 LAB L100.1700 32-36 g/gl Low MCHC 31.4 LAB L100.1810 11.6-14.6 % Normal RDW CV 13.5 LAB L100.1820 35.1-43.9 fl Normal RDW SD 39.3 LAB L100.1900 150-450 K/mm3 Normal PLT 187 LAB L100.2000 6.2-12.0 fl Normal MPV 12.0 LAB L100.2100 47-70 % Normal NEUT% 58.5 LAB L100.2200 19-41 % Normal LY% 31.1 LAB L100.2300 0-10 % Normal MONO% 8.9 LAB L100.2400 0-5 % Normal EO% 1.0 LAB L100.2500 0-1 % Normal BASO% 0.3 LAB L100.2550 0.0-0.9 % Normal IM GRAN % 0.200 Result Comment: IG% - Immature Granulocytes (promyelocytes, myelocytes and metamyelocytes) > 1% indicates that a LEFT SHIFT is Present. LAB L100.2620 2.0-7.7 X10 3/uL Normal Absolute Neut 3.6 LAB L100.2720 0.83-4.51 X10 3/ul Normal Absolute Lymph 1.91 Performed By: #### L100.0100 #### [facility] [place], [address] PROTHROMBIN TIME W/INR Collected: 11/02/2017 Status: F Source: JERAMY 6:05 AM [facility] REPOSITORY TYPE CODE TESTS RESULT OUT OF RANGE REFERENCE UNITS LAB L300.4150 11.7-14.9 SECONDS Normal PROTIME 12.6 LAB L300.4200 Normal INR 0.9 Performed By: #### L300.3900, L300.4310 #### [facility] [address] [place], [address] PARTIAL THROMBOPLAST Collected: 11/02/2017 Status: F Source: [place] TIME 6:05 AM [facility] REPOSITORY TYPE CODE TESTS RESULT OUT OF RANGE REFERENCE UNITS LAB L300.4310 24.1-36.2 Seconds Normal PTT 29.7 Performed By: #### L300.3900, L300.4310 #### [facility] [address] [place], [address] TYPE AND SCREEN Collected: 11/02/2017 Status: F Source: JERAMY 6:05 AM [facility] REPOSITORY Order Comment: Reason for Type AND Screen/Red Cells: SURGERY Type of Surgery: TYPE CODE TESTS RESULT OUT OF RANGE REFERENCE UNITS LAB B10.0800 O Normal BLOOD TYPE GEL POSITIVE LAB B100.4000 Normal Antibody NEGATIVE Screen Performed By: #### B101.7450 #### [facility] [address] [place], [address] BEDSIDE GLUCOSE Collected: 11/02/2017 Status: F Source: [place] 6:01 AM [facility] REPOSITORY TYPE CODE TESTS RESULT OUT OF RANGE REFERENCE UNITS LAB L501.080 70-110 mg/dL Normal BEDSIDE GLU 90 Result Comment: MANAGEMENT OF PATIENT CARE PER NURSING PROTOCOL Performed By: #### L501.080 #### [facility] Point of Care [address] [facility] [place] [address] PROGRESS NOTE Observed: 11/01/2017 Status: COMPLETED Source: [place] 9:00 AM [facility] DIABETES AND PROGRAM COMANAGEMENT Referring/Requesting Provider: Jones Rm MD PCP: Belkis Rea MD CHIEF COMPLAINT: GDMA2 HISTORY OF PRESENT ILLNESS: Shyanne is a 41 y.o. at 39w2d with GDMA2 on Metformin 1500 mg PO QHS. Blood glucose record was reviewed. BG are reported to be at goal with fastings 77-82 and postprandial 75-108. She admits she is not checking 4x per day as recommended due to busy schedule with her twins. No OB complaints. No s/s of preeclampsia. OB History Para Term AB Living 4 2 1 1 1 2 SAB TAB Ectopic Multiple Live Births 1 0 0 1 2 # Outcome Date GA Lbr Garcia/2nd Weight Sex Delivery Anes PTL Lv 4 Current 3A 03/2014 34w0d 2.551 kg M CS-Unspec Spinal N [place] 3B 03/2014 34w0d 2.098 kg M CS-Unspec [place] Comments: HELLP Syndrome 2 SAB 04/2013 6w0d 1 Term 07/2012 38w0d 3.402 kg M Vag-Spont EPI N FD PAST MEDICAL HISTORY: Past Medical History: Diagnosis Date Bicuspid aortic valve trivial mitral valve, tricuspid valve and aortic valve insufficienty per pt's records Encounter for blood transfusion Heterozygous for MTHFR gene mutation PAST SURGICAL HISTORY: Past Surgical History: Procedure Laterality Date SECTION MEDS: Current Outpatient Prescriptions on File Prior to Visit Medication Sig Dispense Refill metFORMIN (GLUCOPHAGE-XR) 500 MG Take 3 Tabs (1,500 mg) by mouth At bedtime 90 Tab 3 Blood Glucose Monitoring Suppl (FREESTYLE LITE) JESSI by Does not apply route glucose blood (FREESTYLE LITE) test strip 1 Strip by Does not apply route as needed Pt to test 4-7 times per day as directed. Quantity of 200 Lancet Devices (LANCET DEVICE WITH EJECTOR) [facility] Please provide lancet covered by patient's insurance. Use to check blood sugars 4-7 times daily as directed 200 Each 0 Vit-DSS-Fe Fum-FA (SE-EVE 19) 29-1 MG TABS Enoxaparin Sodium (LOVENOX SC) Inject 40 mg into the skin 2 times daily. Pt takes it at about 630, and in the evening at about 730 No current facility-administered medications on file prior to visit. ALLERGY: Allergies Allergen Reactions Ibuprofen Rash Seasonal Allergies Other (See Comments) Mold, grasses, ragweed Tape Allergy Allergic to adhesives PHYSICAL EXAM: VITAL SIGNS: BP 114/80 Wt 71.7 kg (158 lb) LMP (LMP Unknown) BMI 26.29 kg/m AAOx3, NAD IMAGING: BPP 10/13. Mild polyhydramnios. IMPRESSION AND RECOMMENDATIONS: Shyanne is a 41 y.o. at 39w2d with Active Non-Hospital Problems Diagnosis Date Noted Macrosomia affecting management of mother 10/25/2017 Supervision of other high risk , antepartum 09/06/2017 Co-Management PLAN OF CARE MD/OB APPOINTMENTS Genetic screening: low risk cell free DNA How often should patient be evaluated: Every 1-2 weeks until delivery Work restrictions: none EVALUATION surveillance: Twice weekly. BPPs q Wednesday with BOO and NSTs q with Dr. Rm Ultrasound: EFW every 4 weeks DELIVERY PLAN Hospital: [facility] section scheduled at 39 weeks due to suspected macrosomia. GBS culture: Contraception: vasectomy : plans to breastfeed Gestational diabetes mellitus (GDM) controlled on oral hypoglycemic drug 08/19/2017 Continue Metformin 1500 mg qHS until delivery. Discontinue . Recommend testing four times daily, fasting and 1 hr PP. delivery previously recommended as the EFW will likely be >4500 gms, the AC is >99% and polyhydramnios. The patient will need a 75 gm glucose test 4-8 weeks post to evaluate for type 2 diabetes. Rx given. Polyhydramnios in third trimester 08/19/2017 testing per GDM guidelines as stated above Congenital bicuspid aortic valve 04/19/2017 AMA (advanced maternal age) multigravida 35+ 04/19/2017 History of HELLP syndrome, currently 04/19/2017 Continue baby Aspirin daily BP normal Asymptomic Thrombophilia affecting , antepartum 04/19/2017 MTHFR Transitioned to UFH 5000 Units BID per primary ObGyn History of delivery, currently 04/19/2017 Recommend repeat delivery during the 39th week. History of stillbirth in currently patient 01/03/2014 with history of infertility 01/03/2014 Pt reports history of oligo ovulation, irregular periods. Consider evaluation for polycystic ovarian syndrome given above and glucose intolerance. Follow up as needed. The total patient time of the visit was 15 minutes, of which was greater than 50% of the time was spent counseling and coordinating care. PROGRESS NOTE Observed: 10/25/2017 Status: COMPLETED Source: [place] 8:30 AM [facility] REPOSITORY DOS: 10/25/2017 [facility] MATERNAL- MEDICINE COMANAGEMENT Referring/Requesting Provider: Jones Rm MD PCP: Belkis Rea MD CHIEF COMPLAINT: GDMA2 HISTORY OF PRESENT ILLNESS: Shyanne is a 41 y.o. female at 38w2d seen for comanagement of GDMA2 and polyhydramnios. Her blood glucose record was reviewed and she appears well controlled at this time. Shyanne is taking metformin 1500 mg at night. She denies any obstetric complaints or signs/symptoms of preeclampsia and reports normal movement. OB HISTORY: OB History Para Term AB Living 4 2 1 1 1 2 SAB TAB Ectopic Multiple Live Births 1 0 0 1 2 # Outcome Date GA Lbr Garcia/2nd Weight Sex Delivery Anes PTL Lv 4 Current 3A 03/2014 34w0d 2.551 kg M CS-Unspec Spinal N [place] 3B 03/2014 34w0d 2.098 kg M CS-Unspec [place] Comments: HELLP Syndrome 2 SAB 04/2013 6w0d 1 Term 07/2012 38w0d 3.402 kg M Vag-Spont EPI N FD PAST MEDICAL HISTORY: Past Medical History: Diagnosis Date Bicuspid aortic valve trivial mitral valve, tricuspid valve and aortic valve insufficienty per pt's records Encounter for blood transfusion Heterozygous for MTHFR gene mutation PAST SURGICAL HISTORY: Past Surgical History: Procedure Laterality Date SECTION PERTINENT FAMILY HISTORY: Family History Problem Relation Age of Onset Diabetes Mellitus II Mother High Blood Pressure Father Seizures Father Cancer Maternal Aunt Diabetes Mellitus II Maternal Grandfather MEDS: Current Outpatient Prescriptions Medication Sig metFORMIN (GLUCOPHAGE-XR) 500 MG Take 3 Tabs (1,500 mg) by mouth At bedtime Blood Glucose Monitoring Suppl (FREESTYLE LITE) JESSI by Does not apply route glucose blood (FREESTYLE LITE) test strip 1 Strip by Does not apply route as needed Pt to test 4-7 times per day as directed. Quantity of 200 Lancet Devices (LANCET DEVICE WITH EJECTOR) [facility] Please provide lancet covered by patient's insurance. Use to check blood sugars 4-7 times daily as directed Vit-DSS-Fe Fum-FA (SE-EVE 19) 29-1 MG TABS Enoxaparin Sodium (LOVENOX SC) Inject 40 mg into the skin 2 times daily. Pt takes it at about 630, and in the evening at about 730 ALLERGY: Allergies Allergen Reactions Ibuprofen Rash Seasonal Allergies Other (See Comments) Mold, grasses, ragweed Tape Allergy Allergic to adhesives REVIEW OF SYSTEMS: As mentioned above and in Subjective, all other Review of Systems reviewed and negative. PHYSICAL EXAM: VITAL SIGNS: BP 112/78 Ht 165.1 cm Wt 71.7 kg (158 lb) LMP (LMP Unknown) BMI 26.29 kg/m IMAGING: Biophysical profile is 8/8. Polyhydramnios is again noted with a MVP of 8.7 cm. IMPRESSION: Shyanne is a 41 y.o. female at 38w2d with Active Non-Hospital Problems Diagnosis Date Noted Macrosomia affecting management of mother 10/25/2017 Supervision of other high risk , antepartum 09/06/2017 Co-Management PLAN OF CARE MD/OB APPOINTMENTS Genetic screening: low risk cell free DNA How often should patient be evaluated: Every 1-2 weeks until delivery Work restrictions: none EVALUATION surveillance: Twice weekly. BPPs q Wednesday with BOO and NSTs q with Dr. Rm Ultrasound: EFW every 4 weeks DELIVERY PLAN Hospital: [facility] section scheduled at 39 weeks due to suspected macrosomia. GBS culture: Contraception: : Gestational diabetes mellitus (GDM) controlled on oral hypoglycemic drug 08/19/2017 Continue Metformin 1500 mg qHS. Recommend testing four times daily, fasting and 1 hr PP. delivery previously recommended as the EFW will likely be >4500 gms, the AC is >99% and polyhydramnios. The patient will need a 75 gm glucose test 4-8 weeks post to evaluate for type 2 diabetes. Polyhydramnios in third trimester 08/19/2017 testing per GDM guidelines as stated above Congenital bicuspid aortic valve 04/19/2017 AMA (advanced maternal age) multigravida 35+ 04/19/2017 History of HELLP syndrome, currently 04/19/2017 Continue baby Aspirin daily BP normal Asymptomic Thrombophilia affecting , antepartum 04/19/2017 MTHFR Transitioned to UFH 5000 Units BID per primary ObGyn History of delivery, currently 04/19/2017 Recommend repeat delivery during the 39th week. History of stillbirth in currently patient 01/03/2014 with history of infertility 01/03/2014 Follow up 1 week. The total patient time of the visit was 15 minutes, of which greater than 50% of the time was spent counseling and coordinating care. Panfilo Valverde DO URGENT CARE VISIT Observed: 10/20/2017 Status: F Source: JERAM[place] REPORT 12:29 PM [facility] REPOSITORY [facility] [address] [place] [address] [address] [place] [address] OFFICE VISIT Date of Service: 10/20/17 MR#: [id number] Acct: [id number] Name: SHYANNE ROCHA Rep #: [id number] : 1975 Provider: Patricio FRAZIER Age/Sex: 41/F Location: [facility] Status: Signed Intake Vital Signs10/20/17 Height 5 ft 6 in 10/20/17 Weight: 140 lb 10/20/17 Body Mass Index (BMI) 22.6 10/20/17 Blood Pressure 104/70 10/20/17 Blood Pressure Location Lt brachial Intake Visit Reasons: Sinus infection Chief Complaint: sinus congestion Accompanied by: self Is patient in pain?: No Allergies ibuprofen Allergy (Verified 10/20/17 12:09) Rash Medications Aspirin [Aspirin, Baby] 81 mg PO DAILY@0800 01/30/14 [History Confirmed 10/20/17] [id number] 400 mcg-om3 35 mg-dha 25 mg-epa 5 mg-fish oil chewable tablet tab PO 05/25/17 [History Confirmed 10/20/17] enoxaparin 40 mg/0.4 mL subcutaneous syringe 40 mg SC Q12H ml 05/26/17 [History Confirmed 10/20/17] amoxicillin 500 mg capsule 500 mg PO TID 10 Days #30 cap 10/20/17 [Rx Confirmed 10/20/17] Patient : Yes PFSH Medical History Bicuspid aortic valve (Chronic) HELLP syndrome (Chronic) MTHFR gene mutation (Chronic) Surgical History History of (Chronic) Family History Mother Hypertension Father Hypertension Diabetes Multiple sclerosis Social History Smoking Status: Never smoker alcohol intake: never HPI HPI Chief Complaint: sinus congestion Details: SHYANNE ROCHA, is a 41 F who presents to the office today for initial evaluation approximately 2 week history of progressive worsening left facial pressure, postnasal drip, hoarse voice, chills. No complaints of fever, sweats, rash, chest pain/shortness of breath, or cough. Patient has been taking [id number] Mucinex without symptomatic relief. Patient notes she is currently 37 weeks gestation. Patient is a non- smoker, and notes no other family members in her household with similar signs or symptoms. No other associated symptoms no other alleviating or aggravating factors. ROS Const Constitutional: Positive for other (ROS negative 10 other than that noted above) Exam Const General: cooperative, healthy appearing, no acute distress, comfortable Nutritional Appearance: average body habitus Orientation: alert, awake, oriented x3 HENMT Head: normal to inspection Ears: hearing grossly normal bilaterally, external ears normal, TM's normal bilaterally, EAC's normal Nose: external nose normal, nares normal, septum normal, no nasal discharge Face and sinus: normal facial exam, face symmetric, sinus tenderness maxillary (Left, with fullness to palpation of the same) Mouth: oral mucosae normal, lip normal, oropharynx normal, tongue normal Teeth and gingiva: dentition normal, gingiva normal Throat: uvula midline, tonsils normal, posterior oropharynx normal, postnasal drainage (Scant purulent) Eyes General: appearance normal, both eyes and all related structures Neck Neck: normal visual inspection, full ROM, no lymphadenopathy, no meningeal signs, supple, lymphadenopathy (Left submandibular lymph node swelling and tender to palpation) Neck mass: No Thyroid: thyroid normal Chest Chest palpation AND inspection: normal inspection of the chest Resp Effort AND Inspection: normal respiratory effort, able to speak in complete sentences, symmetric chest movement, no cough Auscultation: Bilateral: Clear to Auscultation Cardio Palpation: normal PMI Rate: regular rate Rhythm: regular rhythm Heart Sounds: S1 normal, S2 normal, no gallops, no murmurs, no rubs Pulses: radial pulses present GI Inspection: normal to inspection Palpation: soft Skin General: no rashes or lesions noted Neuro General: alert, awake, oriented x3, gait normal Cognition: normal cognition Speech: speech normal Gait: normal gait Motor: muscle tone normal throughout Sensory Exam: no sensory deficits noted Psych Appearance: grossly normal Mental Status: mental status grossly normal Mood: congruent mood Affect: normal affect Speech and Movement: speech and movement normal Attitude: cooperative Thought Process: normal Thought Content: normal Judgment: judgment good Assessment AND Plan 1. Sinusitis J32.9 2. Maxillary sinusitis J32.0 Plan Amoxicillin as prescribed today. Clear fluids, rest, warm facial compresses as needed as instructed today. Follow-up with PCP in 3-5 days should symptoms not improved, sooner should symptoms worsen or any other concerns develop. Patient states acknowledging understanding all the above. This note was generated with [employer] dictation software. It may contain incorrect words, spelling, and punctuation that were not noted in checking the note before signing. Plan Detail Other Medications New: Coding Level of Care Code Off vis,est,level 3 Diagnoses Sinusitis J32.9 Maxillary sinusitis J32.0 10/20/17 1229 <Electronically signed by Patricio FRAZIER> Date Patricio FRAZIER Cosigner Signature: Date (if applicable) CC: PROGRESS NOTE Observed: 10/18/2017 Status: COMPLETED Source: [place] 9:00 AM [facility] REPOSITORY [place] GestationalDiabetes Mellitus History of Presenting Problem: HPI Shyanne Rocha is seen at 37w2d for comanagement of Gestational Diabetes Mellitus and MTHFR heterozygote. She denies any complaints today. Her blood glucose record was reviewed. Her oral medications Metformin did not change. Current dose is metformin 1500 mg qHS. Review of Systems Constitutional: Negative for chills and fever. Eyes: Negative for blurred vision. Respiratory: Negative for shortness of breath. Cardiovascular: Negative for chest pain. Gastrointestinal: Negative for abdominal pain, constipation, diarrhea, nausea and vomiting. Genitourinary: Negative for dysuria. Neurological: Negative for tingling, focal weakness and headaches. Past Medical History: Past Medical History: Diagnosis Date Bicuspid aortic valve trivial mitral valve, tricuspid valve and aortic valve insufficienty per pt's records Encounter for blood transfusion Heterozygous for MTHFR gene mutation Past Surgical History: Procedure Laterality Date SECTION Medications: Outpatient Encounter Prescriptions as of 10/18/2017 Medication Sig Dispense Refill metFORMIN (GLUCOPHAGE-XR) 500 MG Take 3 Tabs (1,500 mg) by mouth At bedtime 90 Tab 3 Blood Glucose Monitoring Suppl (FREESTYLE LITE) JESSI by Does not apply route Lancet Devices (LANCET DEVICE WITH EJECTOR) [facility] Please provide lancet covered by patient's insurance. Use to check blood sugars 4-7 times daily as directed 200 Each 0 Vit-DSS-Fe Fum-FA (SE-EVE 19) 29-1 MG TABS glucose blood (FREESTYLE LITE) test strip 1 Strip by Does not apply route as needed Pt to test 4-7 times per day as directed. Quantity of 200 Enoxaparin Sodium (LOVENOX SC) Inject 40 mg into the skin 2 times daily. Pt takes it at about 630, and in the evening at about 730 No facility-administered encounter medications on file as of 10/18/2017. Allergies: Allergies Allergen Reactions Ibuprofen Rash Seasonal Allergies Other (See Comments) Mold, grasses, ragweed Tape Allergy Allergic to adhesives Physical Exam: Vitals Extended BP: 102/70 Weight - Scale: 73.5 kg (162 lb) Height: 165.1 cm Present: Vertex Heart Rate: Positive Number of Fetuses: 1 Heart Rate: present on ultrasound Movement: Present Vaginal Bleeding: Absent Cramps / Contractions: Present (Irregular) Mucous Discharge: Absent Physical Exam Nursing note and vitals reviewed. Constitutional: She appears well-developed and well-nourished. She is active. No distress. Pulmonary/Chest: No respiratory distress. Abdominal: Abdomen soft. She exhibits no distension. There is no rebound and no guarding. No RUQ pain, no CVA tenderness Musculoskeletal: She exhibits no edema or tenderness. Neurological: She is alert. Skin: Skin is warm and dry. She is not diaphoretic. Assessment/Plan: 41 y.o. at 37w2d with Active Non-Hospital Problems Diagnosis Date Noted Supervision of other high risk , antepartum 09/06/2017 Co-Management PLAN OF CARE MD/OB APPOINTMENTS Genetic screening: low risk cell free DNA How often should patient be evaluated: Every 1-2 weeks until delivery Work restrictions: none EVALUATION surveillance: Twice weekly. BPPs q Wednesday with MFM and NSTs q with Dr. Rm Ultrasound: EFW every 4 weeks DELIVERY PLAN Hospital: [facility] at 39 weeks GBS culture: Contraception: per primary provider : Gestational diabetes mellitus (GDM) controlled on oral hypoglycemic drug 08/19/2017 Fasting glucose levels remain elevated. Continue Metformin to 1500 mg qHS, if fasting glucose levels elevated next week will start NPH at bedtime Due to macrosomia and polyhydramnios, recommend testing four times daily, fasting and 1 hr PP. Serial growth ultrasounds every 4 weeks. Twice weekly testing. BPPs q Mondays with MFM and NSTs q with Dr. Rm Recommend delivery at 39 weeks, recommend a delivery as the EFW will likely be >4500 gms, the AC is >99% and there is polyhydramnios. The patient will need a 75 gm glucose test 4-8 weeks post to evaluate for type 2 diabetes. Polyhydramnios in third trimester 08/19/2017 testing per GDM guidelines as stated above Congenital bicuspid aortic valve 04/19/2017 AMA (advanced maternal age) multigravida 35+ 04/19/2017 History of HELLP syndrome, currently 04/19/2017 Continue baby Aspirin daily BP normal Asymptomic Thrombophilia affecting , antepartum 04/19/2017 MTHFR On enoxaparin per primary ObGyn History of delivery, currently 04/19/2017 Recommend repeat delivery during the 39th week. History of stillbirth in currently patient 01/03/2014 with history of infertility 01/03/2014 Follow up in 1 week for co-management and BPP. If fasting glucose levels are again elevated, will start NPH at bedtime. Chris Boss MD GROUP B STREP DNA Collected: 10/14/2017 Status: F Source: [place] BY PCR 4:30 PM [facility] REPOSITORY Order Comment: Source: Vaginal-Rectal TYPE CODE TESTS RESULT OUT OF RANGE REFERENCE UNITS LAB L8200.0100 Negative Normal GBS TEST Negative RESULT Performed By: #### L8200.0000 #### [facility] [address] [place], [address] Observed: 10/14/2017 Status: F Source: JER[place]Y CULTURE, GROUP B 12:00 AM [facility] STREPTOCOCCUS REPOSITORY RODRIGO Culture Group B Beta Streptococcus is not isolated. Performed By: #### M100.1800 #### [facility] [address] [place], [address] PROGRESS NOTE Observed: 10/11/2017 Status: COMPLETED Source: [place] 8:30 AM [facility] REPOSITORY [place] GestationalDiabetes Mellitus Shyanne Rocha is seen at 36w2d for comanagement of Gestational Diabetes Mellitus, history of stillbirth, MTHFR and polyhydramnios. She denies any complaints today. Her blood glucose record was reviewed. Her oral medications Metformin did not change. Current dose is metformin 1500 mg qHS. History of Presenting Problem: She is unaccompanied. Gestational Diabetes Shyanne presents today for her comanage visit. She has GDMA2 diabetes. The disease course is stable. Her symptom course is compliant. Current treatments include diet and oral agent (monotherapy). She is compliant with treatment most of the time. Blood glucose readings reviewed and appear controlled. Readings are as follows: still does not check blood sugars consistently; overall, appear controlled. Patient Active Problem List Diagnosis History of stillbirth in currently patient with history of infertility Congenital bicuspid aortic valve AMA (advanced maternal age) multigravida 35+ History of HELLP syndrome, currently Thrombophilia affecting , antepartum History of delivery, currently Gestational diabetes mellitus (GDM) controlled on oral hypoglycemic drug Polyhydramnios in third trimester Supervision of other high risk , antepartum Physical Exam: Vitals Extended Weight - Scale: 73.3 kg (161 lb 9 oz) Ultrasound: BPP 8/8. Polyhydramnios, NIURKA 29.0 cm. Impression: 1. Gestational diabetes on metformin. Patient still checks improving. Continue to check fasting values and alternating meals each day to get values for lunch and dinner as well. Blood sugars improved with increased metformin. Continue antepartum testing twice weekly. 2. Polyhydramnios. We discussed continued antepartum testing. 3. See problem list for concerns not addressed in today's visit. Follow up Plan: 1. Comanage visit in 1 week. 2. No changes to metformin. 3. Continue Testing 2 times a week. 4. Growth assessment every 4 weeks. 5. Recommend delivery at 39 weeks or sooner if clinically indicated. The total patient time of the visit was 10 minutes, of which greater than 50% of the time was spent counseling and coordinating care. PROGRESS NOTE Observed: 10/04/2017 Status: COMPLETED Source: [place] 9:30 AM [facility] REPOSITORY DIABETES AND PROGRAM COMANAGEMENT Referring/Requesting Provider: Jones Rm MD PCP: Belkis Rea MD CHIEF COMPLAINT: GDMA2 HISTORY OF PRESENT ILLNESS: Shyanne is a 41 y.o. at 35w2d with GDMA2 on Metformin 1000mg QHS. Blood glucose record was reviewed. Hyperglycemia is present fasting. She denies PETERSON, visual changes, abdominal pain. Good movement. OB History Para Term AB Living 4 2 1 1 1 2 SAB TAB Ectopic Multiple Live Births 1 0 0 1 2 # Outcome Date GA Lbr Garcia/2nd Weight Sex Delivery Anes PTL Lv 4 Current 3A 03/2014 34w0d 2.551 kg M CS-Unspec Spinal N [place] 3B 03/2014 34w0d 2.098 kg M CS-Unspec [place] Comments: HELLP Syndrome 2 SAB 04/2013 6w0d 1 Term 07/2012 38w0d 3.402 kg M Vag-Spont EPI N FD PAST MEDICAL HISTORY: Past Medical History: Diagnosis Date Bicuspid aortic valve trivial mitral valve, tricuspid valve and aortic valve insufficienty per pt's records Encounter for blood transfusion Heterozygous for MTHFR gene mutation PAST SURGICAL HISTORY: Past Surgical History: Procedure Laterality Date SECTION MEDS: Current Outpatient Prescriptions on File Prior to Visit Medication Sig Dispense Refill Blood Glucose Monitoring Suppl (FREESTYLE LITE) JESSI by Does not apply route glucose blood (FREESTYLE LITE) test strip 1 Strip by Does not apply route as needed Pt to test 4-7 times per day as directed. Quantity of 200 Lancet Devices (LANCET DEVICE WITH EJECTOR) [facility] Please provide lancet covered by patient's insurance. Use to check blood sugars 4-7 times daily as directed 200 Each 0 Enoxaparin Sodium (LOVENOX SC) Inject 40 mg into the skin 2 times daily. Pt takes it at about 630, and in the evening at about 730 aspirin EC (ECOTRIN LOW STRENGTH) 81 MG EC tablet Take by mouth daily. Vit-DSS-Fe Fum-FA (SE-EVE 19) 29-1 MG TABS No current facility-administered medications on file prior to visit. ALLERGY: Allergies Allergen Reactions Ibuprofen Rash Seasonal Allergies Other (See Comments) Mold, grasses, ragweed Tape Allergy Allergic to adhesives PHYSICAL EXAM: VITAL SIGNS: LMP (LMP Unknown) AAOx3, NAD IMAGING: IMPRESSION AND RECOMMENDATIONS: Shyanne is a 41 y.o. at 35w2d with Active Non-Hospital Problems Diagnosis Date Noted Supervision of other high risk , antepartum 09/06/2017 Co-Management PLAN OF CARE MD/OB APPOINTMENTS Genetic screening: low risk cell free DNA How often should patient be evaluated: Every 1-2 weeks until delivery Work restrictions: none EVALUATION surveillance: Twice weekly. BPPs q Wednesday with MFM and NSTs q with Dr. Rm Ultrasound: EFW every 4 weeks DELIVERY PLAN Hospital: [facility] Induction or at 39 weeks GBS culture: Contraception: : Gestational diabetes mellitus (GDM) controlled on oral hypoglycemic drug 08/19/2017 Fasting glucose levels remain elevated. Increase Metformin to 1500 mg qHS Recommend high protein snacks if she is hungry in the middle of the night. Advised avoiding doughnuts and cakes. Testing fasting glucose levels daily, she can check post prandial glucose levels every other day Serial growth ultrasounds every 4 weeks. Twice weekly testing. BPPs q Mondays with MFM and NSTs q with Dr. Rm Recommend delivery at 39 weeks, recommend a delivery if the EFW is >4500 gms. The patient will need a 75 gm glucose test 4-8 weeks post to evaluate for type 2 diabetes. Polyhydramnios in third trimester 08/19/2017 testing per GDM guidelines as stated above Congenital bicuspid aortic valve 04/19/2017 AMA (advanced maternal age) multigravida 35+ 04/19/2017 History of HELLP syndrome, currently 04/19/2017 Continue baby Aspirin daily BP normal Asymptomic Thrombophilia affecting , antepartum 04/19/2017 MTHFR On enoxaparin per primary ObGyn History of delivery, currently 04/19/2017 History of stillbirth in currently patient 01/03/2014 with history of infertility 01/03/2014 Follow up with MFM in 1 week for comanagement and BPP. The total patient time of the visit was 15 minutes, of which was greater than 50% of the time was spent counseling and coordinating care. PROGRESS NOTE Observed: 10/04/2017 Status: COMPLETED Source: [place] 8:45 AM [facility] REPOSITORY DIABETES AND PROGRAM COMANAGEMENT Referring/Requesting Provider: Jones Rm MD PCP: Belkis Rea MD CHIEF COMPLAINT: GDMA T2DM T1DM HISTORY OF PRESENT ILLNESS: Shyanne is a 41 y.o. at 35w2d with GDMA2 on Metformin 1000mg QHS. Blood glucose record was reviewed. Hyperglycemia is present fasting. She denies PETERSON, visual changes, abdominal pain. Good movement. OB History Para Term AB Living 4 2 1 1 1 2 SAB TAB Ectopic Multiple Live Births 1 0 0 1 2 # Outcome Date GA Lbr Garcia/2nd Weight Sex Delivery Anes PTL Lv 4 Current 3A 03/2014 34w0d 2.551 kg M CS-Unspec Spinal N [place] 3B 03/2014 34w0d 2.098 kg M CS-Unspec [place] Comments: HELLP Syndrome 2 SAB 04/2013 6w0d 1 Term 07/2012 38w0d 3.402 kg M Vag-Spont EPI N FD PAST MEDICAL HISTORY: Past Medical History: Diagnosis Date Bicuspid aortic valve trivial mitral valve, tricuspid valve and aortic valve insufficienty per pt's records Encounter for blood transfusion Heterozygous for MTHFR gene mutation PAST SURGICAL HISTORY: Past Surgical History: Procedure Laterality Date SECTION MEDS: Current Outpatient Prescriptions on File Prior to Visit Medication Sig Dispense Refill Blood Glucose Monitoring Suppl (FREESTYLE LITE) JESSI by Does not apply route glucose blood (FREESTYLE LITE) test strip 1 Strip by Does not apply route as needed Pt to test 4-7 times per day as directed. Quantity of 200 Lancet Devices (LANCET DEVICE WITH EJECTOR) [facility] Please provide lancet covered by patient's insurance. Use to check blood sugars 4-7 times daily as directed 200 Each 0 Enoxaparin Sodium (LOVENOX SC) Inject 40 mg into the skin 2 times daily. Pt takes it at about 630, and in the evening at about 730 aspirin EC (ECOTRIN LOW STRENGTH) 81 MG EC tablet Take by mouth daily. Vit-DSS-Fe Fum-FA (SE- 19) 29-1 MG TABS No current facility-administered medications on file prior to visit. ALLERGY: Allergies Allergen Reactions Ibuprofen Rash Seasonal Allergies Other (See Comments) Mold, grasses, ragweed Tape Allergy Allergic to adhesives PHYSICAL EXAM: VITAL SIGNS: LMP (LMP Unknown) AAOx3, NAD IMAGING: IMPRESSION AND RECOMMENDATIONS: Shyanne is a 41 y.o. at 35w2d with Active Non-Hospital Problems Diagnosis Date Noted Supervision of other high risk , antepartum 09/06/2017 Co-Management PLAN OF CARE MD/OB APPOINTMENTS Genetic screening: low risk cell free DNA How often should patient be evaluated: Every 1-2 weeks until delivery Work restrictions: none EVALUATION surveillance: Twice weekly. BPPs q Wednesday with MFM and NSTs q with Dr. Rm Ultrasound: EFW every 4 weeks DELIVERY PLAN Hospital: [facility] Induction or at 39 weeks GBS culture: Contraception: : Gestational diabetes mellitus (GDM) controlled on oral hypoglycemic drug 08/19/2017 Fasting glucose levels remain elevated. Increase Metformin to 1500 mg qHS Recommend high protein snacks if she is hungry in the middle of the night. Advised avoiding doughnuts and cakes. Testing fasting glucose levels daily, she can check post prandial glucose levels every other day Serial growth ultrasounds every 4 weeks. Twice weekly testing. BPPs q Mondays with MFM and NSTs q with Dr. Rm Recommend delivery at 39 weeks, recommend a delivery if the EFW is >4500 gms. The patient will need a 75 gm glucose test 4-8 weeks post to evaluate for type 2 diabetes. Polyhydramnios in third trimester 08/19/2017 testing per GDM guidelines as stated above Congenital bicuspid aortic valve 04/19/2017 AMA (advanced maternal age) multigravida 35+ 04/19/2017 History of HELLP syndrome, currently 04/19/2017 Continue baby Aspirin daily BP normal Asymptomic Thrombophilia affecting , antepartum 04/19/2017 MTHFR On enoxaparin per primary ObGyn History of delivery, currently 04/19/2017 History of stillbirth in currently patient 01/03/2014 with history of infertility 01/03/2014 Follow up with MFM in 1 week for comanagement and BPP. The total patient time of the visit was 15 minutes, of which was greater than 50% of the time was spent counseling and coordinating care. Observed: 09/27/2017 Status: F Source: [place] CULTURE, URINE 8:55 AM [facility] REPOSITORY Urine Culture ORGANISM 1: Mixed Gram Positive Organisms [place] Count >100,000 MIX CULTURE Mixed contaminants. Submit a new specimen if indicated. Performed By: #### [id number] #### [facility] [place], [address] PROGRESS NOTE Observed: 09/27/2017 Status: COMPLETED Source: [place] 8:30 AM [facility] REPOSITORY Comanage GestationalDiabetes Mellitus Shyanne Rocha is seen at 34w2d for comanagement of Gestational Diabetes Mellitus, history of stillbirth, MTHFR and polyhydramnios. She denies any complaints today. Her blood glucose record was reviewed. Her oral medications Metformin did not change. Current dose is metformin 1000 mg qHS. History of Presenting Problem: She is unaccompanied. Gestational Diabetes Shyanne presents today for her comanage visit. She has GDMA2 diabetes. The disease course is stable. Her symptom course is compliant. Current treatments include diet and oral agent (monotherapy). She is compliant with treatment most of the time. Blood glucose readings reviewed. Readings are as follows: still does not check blood sugars consistently; overall, appear controlled. Patient Active Problem List Diagnosis History of stillbirth in currently patient with history of infertility Congenital bicuspid aortic valve AMA (advanced maternal age) multigravida 35+ History of HELLP syndrome, currently Thrombophilia affecting , antepartum History of delivery, currently Gestational diabetes mellitus (GDM) controlled on oral hypoglycemic drug Polyhydramnios in third trimester Supervision of other high risk , antepartum Physical Exam: Vitals Extended BP: 98/70 Weight - Scale: 71.7 kg (158 lb) Present: Vertex Heart Rate: Positive Number of Fetuses: 1 Heart Rate: present on ultrasound Movement: Present Vaginal Bleeding: Absent Cramps / Contractions: Absent Mucous Discharge: Absent Ultrasound: BPP 8/8. Polyhydramnios. Impression: 1. Gestational diabetes on metformin. Patient still checks values inconsistently. We discussed continuing to check fasting values and alternating meals each day to get values for lunch and dinner as well. No changes to metformin. Continue antepartum testing twice weekly. 2. Polyhydramnios. We discussed continued antepartum testing. 3. Hematuria. We discussed potential causes including UTI. Patient agreeable to urine culture. 4. See problem list for concerns not addressed in today's visit. Follow up Plan: 1. Comanage visit in 1 week. 2. No changes to metformin. 3. Continue Testing 2 times a week. 4. Growth assessment every 4 weeks. 5. Recommend delivery at 39 weeks or sooner if clinically indicated. 6. Urine culture ordered. The total patient time of the visit was 10 minutes, of which greater than 50% of the time was spent counseling and coordinating care. PROGRESS NOTE Observed: 09/20/2017 Status: COMPLETED Source: [place] 9:00 AM [facility] REPOSITORY Comanage GestationalDiabetes Mellitus Shyanne Rocha is seen at 33w2d for comanagement of Gestational Diabetes Mellitus, history of stillbirth, MTHFR and polyhydramnios. She denies any complaints today. Her blood glucose record was reviewed. Her oral medications Metformin did not change. Current dose is metformin 1000 mg qHS. History of Presenting Problem: She is unaccompanied. Gestational Diabetes Shyanne presents today for her comanage visit. She has GDMA2 diabetes. The disease course is stable. Her symptom course is compliant. Current treatments include diet and oral agent (monotherapy). She is compliant with treatment most of the time. Blood glucose readings reviewed. Readings are as follows: only checks fasting and 3 postprandial breakfasts; mostly at goal. Patient Active Problem List Diagnosis History of stillbirth in currently patient with history of infertility Congenital bicuspid aortic valve AMA (advanced maternal age) multigravida 35+ History of HELLP syndrome, currently Thrombophilia affecting , antepartum History of delivery, currently Gestational diabetes mellitus (GDM) controlled on oral hypoglycemic drug Polyhydramnios in third trimester Supervision of other high risk , antepartum Physical Exam: Vitals Extended BP: 108/70 Weight - Scale: 72.1 kg (159 lb) Height: 165.1 cm Present: Vertex Heart Rate: Positive Number of Fetuses: 1 Heart Rate: present on ultrasound Movement: Present Vaginal Bleeding: Absent Cramps / Contractions: Absent Mucous Discharge: Absent Ultrasound: 1. Single, living IUP at 33w2d by clinical ROBBIN. 2. There is appropriate interval growth. 3. EFW is 2233 gm at the 51st percentile for stated gestational age. 4. Polyhydramnios is noted again, MVP > 8 cm. 5. Placenta is posterior without evidence of previa. 6. Anatomic survey performed as noted above, but was limited due to late gestational age. However, no gross anomalies were identified. 7. BPP was 8/8. Impression: 1. Gestational diabetes on metformin. Patient has only been checking fasting values and postprandial breakfast every other day. We discussed continuing to check fasting values and alternating meals each day to get values for lunch and dinner as well. No changes to metformin. Continue antepartum testing twice weekly. 2. Polyhydramnios. We discussed continued antepartum testing. 3. See problem list for concerns not addressed in today's visit. Follow up Plan: 1. Comanage visit in 1 week. 2. No changes to metformin. 3. Continue Testing 2 times a week. 4. Growth assessment every 4 weeks. 5. Recommend delivery at 39 weeks or sooner if clinically indicated. The total patient time of the visit was 10 minutes, of which greater than 50% of the time was spent counseling and coordinating care. PROGRESS NOTE Observed: 09/13/2017 Status: COMPLETED Source: [place] 8:30 AM [facility] REPOSITORY DOS: 09/13/2017 [facility] MATERNAL- MEDICINE COMANAGEMENT Referring/Requesting Provider: Jones Rm MD PCP: Belkis Rea MD CHIEF COMPLAINT: GDMA2 HISTORY OF PRESENT ILLNESS: Shyanne is a 41 y.o. female at 32w2d seen for comanagement of GDMA2 and polyhydramnios. Her blood glucose record was reviewed and she continues to have elevated fasting glucose greater than 50% of the time. Available logs indicate postprandial glucose is within goal. Shyanne is taking metformin 500 mg at night. She denies any obstetric complaints today and reports normal movement. OB HISTORY: OB History Para Term AB Living 4 2 1 1 1 2 SAB TAB Ectopic Multiple Live Births 1 0 0 1 2 # Outcome Date GA Lbr Garcia/2nd Weight Sex Delivery Anes PTL Lv 4 Current 3A 03/2014 34w0d 2.551 kg M CS-Unspec Spinal N [place] 3B 03/2014 34w0d 2.098 kg M CS-Unspec [place] Comments: HELLP Syndrome 2 SAB 04/2013 6w0d 1 Term 07/2012 38w0d 3.402 kg M Vag-Spont EPI N FD PAST MEDICAL HISTORY: Past Medical History: Diagnosis Date Bicuspid aortic valve trivial mitral valve, tricuspid valve and aortic valve insufficienty per pt's records Encounter for blood transfusion Heterozygous for MTHFR gene mutation PAST SURGICAL HISTORY: Past Surgical History: Procedure Laterality Date SECTION PERTINENT FAMILY HISTORY: Family History Problem Relation Age of Onset Diabetes Mellitus II Mother High Blood Pressure Father Seizures Father Cancer Maternal Aunt Diabetes Mellitus II Maternal Grandfather MEDS: Current Outpatient Prescriptions Medication Sig metFORMIN (GLUCOPHAGE-XR) 500 MG Take 1 Tab (500 mg) by mouth At bedtime (Patient taking differently: Take 1,000 mg by mouth At bedtime ) Blood Glucose Monitoring Suppl w/Device KIT Please provide glucometer covered by patient's insurance. Use to check blood sugars as directed (Patient taking differently: Please provide glucometer covered by patient's insurance. Use to check blood sugars as directed; pt uses Free style Lite Meter) glucose blood (ONE TOUCH ULTRA) test strip Please provide test strips covered by patient's insurance. Use to check test strips 4-7 times daily as directed Lancet Devices (LANCET DEVICE WITH EJECTOR) [facility] Please provide lancet covered by patient's insurance. Use to check blood sugars 4-7 times daily as directed Enoxaparin Sodium (LOVENOX SC) Inject 40 mg into the skin 2 times daily. Pt takes it at about 630, and in the evening at about 730 aspirin EC (ECOTRIN LOW STRENGTH) 81 MG EC tablet Take by mouth daily. Vit-DSS-Fe Fum-FA (SE- 19) 29-1 MG TABS ALLERGY: Allergies Allergen Reactions Ibuprofen Rash Seasonal Allergies Other (See Comments) Mold, grasses, ragweed Tape Allergy Allergic to adhesives REVIEW OF SYSTEMS: As mentioned above and in Subjective, all other Review of Systems reviewed and negative. PHYSICAL EXAM: VITAL SIGNS: BP 104/68 Wt 71.2 kg (157 lb) LMP (LMP Unknown) IMAGING: Biophysical profile is 10/13. Polyhydramnios is again noted with a MVP of 11.4 cm. LABS: Orders Only on 09/06/2017 Component Date Value Ref Range Status POCT Protein, Urine 09/13/2017 Trace Negative - Trace mg/dl Final POCT Blood, Urine 09/13/2017 Negative Negative Final POCT Ketones, Urine 09/13/2017 Negative Negative mg/dl Final POCT Glucose, Urine 09/13/2017 Negative Negative mg/dl Final IMPRESSION: Shyanne is a 41 y.o. female at 32w2d with Active Non-Hospital Problems Diagnosis Date Noted Supervision of other high risk , antepartum 09/06/2017 Co-Management PLAN OF CARE MD/OB APPOINTMENTS Genetic screening: low risk cell free DNA How often should patient be evaluated: Every 1-2 weeks until delivery Work restrictions: none EVALUATION surveillance: Twice weekly. BPPs q Wednesday with MFM and NSTs q with Dr. Rm Ultrasound: EFW every 4 weeks DELIVERY PLAN Hospital: [facility] Induction or at 39 weeks GBS culture: Contraception: : Gestational diabetes mellitus (GDM) controlled on oral hypoglycemic drug 08/19/2017 Fasting glucose levels remain elevated. Increase Metformin to 1000 mg qHS Recommend high protein snacks if she is hungry in the middle of the night. Advised avoiding doughnuts and cakes. Testing fasting glucose levels daily, she can check post prandial glucose levels every other day Serial growth ultrasounds every 4 weeks. Twice weekly testing. BPPs q Mondays with MFM and NSTs q with Dr. Rm Recommend delivery at 39 weeks, recommend a delivery if the EFW is >4500 gms. The patient will need a 75 gm glucose test 4-8 weeks post to evaluate for type 2 diabetes. Polyhydramnios in third trimester 08/19/2017 testing per GDM guidelines as stated above Congenital bicuspid aortic valve 04/19/2017 AMA (advanced maternal age) multigravida 35+ 04/19/2017 History of HELLP syndrome, currently 04/19/2017 Continue baby Aspirin daily Thrombophilia affecting , antepartum 04/19/2017 MTHFR On enoxaparin per primary ObGyn History of delivery, currently 04/19/2017 History of stillbirth in currently patient 01/03/2014 with history of infertility 01/03/2014 Follow up 1 week. The total patient time of the visit was 15 minutes, of which greater than 50% of the time was spent counseling and coordinating care. Panfilo Valverde DO URGENT CARE VISIT Observed: 09/10/2017 Status: F Source: [place] REPORT 11:46 AM [facility] REPOSITORY [facility] [address] [place] [address] OFFICE VISIT Date of Service: 09/10/17 MR#: [id number] Acct: [id number] Name: SHYANNE ROCHA Rep #: [id number] : 1975 Provider: Yovani FRAZIER Age/Sex: 41/F Location: [email or web address] Status: Signed Intake Vital Signs09/10/17 Height 5 ft 6 in Intake Visit Reasons: eyes Allergies ibuprofen Allergy (Verified 09/10/17 11:31) Rash Medications Aspirin [Aspirin, Baby] 81 mg PO DAILY@0800 01/30/14 [History Confirmed 09/10/17] CXH30-TO 400 mcg-om3 35 mg-dha 25 mg-epa 5 mg-fish oil chewable tablet tab PO 05/25/17 [History Confirmed 09/10/17] enoxaparin 40 mg/0.4 mL subcutaneous syringe 40 mg SC Q12H ml 05/26/17 [History Confirmed 09/10/17] sulfacetamide sodium 10 % eye drops 1 drp OPHTHALMIC Q3H 5 Days #15 ml 09/10/17 [Rx Confirmed 09/10/17] Patient : Yes PFSH Medical History Bicuspid aortic valve (Chronic) HELLP syndrome (Chronic) MTHFR gene mutation (Chronic) Surgical History History of (Chronic) Family History Mother Hypertension Father Hypertension Diabetes Multiple sclerosis Social History Smoking Status: Never smoker alcohol intake: never HPI HPI Details: SHYANNE ROCHA, is a 41 F who presents to the office today for complaint of her eyes crusting shut and having white discharge for the past 24 hours. Patient notes that she has had no blurry vision or light disturbance. No feeling of foreign body or trauma to the eye. No fever, chills, sweats. No nausea, vomiting or diarrhea. No other associated symptoms or alleviating/aggravating factors. ROS Const Constitutional: No chills, fever(s), fatigue or abnormal sleep pattern Eyes Eyes: Positive for discharge (Eye redness); no change in vision, blurry vision or eye pain Neuro Neurology: No behavioral changes or confusion Psych Psychiatric: No abnormal sleep pattern, No behavioral changes, No confusion Endo Endocrine: No fatigue Exam Const General: cooperative, healthy appearing [facility] Head: normocephalic, atraumatic Ears: hearing grossly normal bilaterally Face and sinus: face symmetric Eyes General: appearance normal, both eyes and all related structures Visual Millard: normal visual millard by confrontation Alignment and Position: alignment normal Periorbital: periorbital findings normal Eyelids: eyelids normal Pupils: PERRL Skin General: no rashes or lesions noted Psych Appearance: grossly normal Assessment AND Plan Problems 1. Acute bacterial conjunctivitis of both eyes H10.33 Status Acute Plan Eyedrops as prescribed today. Encouraged to use Tylenol or Ibuprofen (unless contraindicated) for comfort. Patient also educated on other symptomatic management techniques. To be seen in 7-10 days by PCP or family life counselor if no improvement; sooner if worsening of symptoms. Patient advised of potential red flags and when appropriate report to the ED. Patient verbalized understanding of all the above. This note was generated with [employer] dictation software. It may contain incorrect words, spelling, and punctuation that were not noted in checking the note before signing. Medications New: Coding Level of Care Code Off vis,est,level 3 Diagnoses Acute bacterial conjunctivitis of both eyes H10.33 Laterality: bilateral 09/10/17 1146 <Electronically signed by Yovani FRAZIER> Date Yovani FRAZIER Cosigner Signature: Date (if applicable) CC: PROGRESS NOTE Observed: 09/06/2017 Status: COMPLETED Source: [place] 8:30 AM [facility] REPOSITORY Comanage GestationalDiabetes Mellitus Shyanne Rocha is seen at 31w2d for comanagement of Gestational Diabetes Mellitus and h/o delivery, polyhydramnios and h/o HELLP syndrome. She is also on lovenox for MTHFR. She denies any complaints today. Her blood glucose record was reviewed. She is currently diet controlled. She continues to eat multiple times during the night. However, she did two nights of true fasting glucose levels and both were over 90 mg/dL. History of Presenting Problem: HPI Review of Systems Constitutional: Negative for chills and fever. Eyes: Negative for blurred vision. Respiratory: Negative for shortness of breath. Cardiovascular: Negative for chest pain. Gastrointestinal: Negative for abdominal pain, constipation, diarrhea, nausea and vomiting. Genitourinary: Negative for dysuria. Neurological: Negative for headaches. Past Medical History: Past Medical History: Diagnosis Date Bicuspid aortic valve trivial mitral valve, tricuspid valve and aortic valve insufficienty per pt's records Encounter for blood transfusion Heterozygous for MTHFR gene mutation Past Surgical History: Procedure Laterality Date SECTION Medications: Outpatient Encounter Prescriptions as of 09/06/2017 Medication Sig Dispense Refill Blood Glucose Monitoring Suppl w/Device KIT Please provide glucometer covered by patient's insurance. Use to check blood sugars as directed 1 Each 1 glucose blood (ONE TOUCH ULTRA) test strip Please provide test strips covered by patient's insurance. Use to check test strips 4-7 times daily as directed 200 Each 0 Lancet Devices (LANCET DEVICE WITH EJECTOR) [facility] Please provide lancet covered by patient's insurance. Use to check blood sugars 4-7 times daily as directed 200 Each 0 Enoxaparin Sodium (LOVENOX SC) Inject 40 mg into the skin 2 times daily. Pt takes it at about 630, and in the evening at about 730 aspirin EC (ECOTRIN LOW STRENGTH) 81 MG EC tablet Take by mouth daily. Vit-DSS-Fe Fum-FA (SE- 19) 29-1 MG TABS metFORMIN (GLUCOPHAGE-XR) 500 MG Take 1 Tab (500 mg) by mouth At bedtime 30 Tab 3 No facility-administered encounter medications on file as of 09/06/2017. Allergies: Allergies Allergen Reactions Ibuprofen Rash Seasonal Allergies Other (See Comments) Mold, grasses, ragweed Tape Allergy Allergic to adhesives Physical Exam: Vitals Extended BP: 104/70 Weight - Scale: 70.8 kg (156 lb) Present: Unknown Heart Rate: Positive Number of Fetuses: 1 Heart Rate: present on ultrasound Movement: Present Vaginal Bleeding: Absent Cramps / Contractions: Absent Mucous Discharge: Absent Physical Exam Constitutional: She is oriented to person, place, and time and well-developed, well-nourished, and in no distress. No distress. Pulmonary/Chest: No respiratory distress. Abdominal: Soft. She exhibits no distension. There is no tenderness. There is no rebound and no guarding. Musculoskeletal: She exhibits no edema or tenderness. Neurological: She is alert and oriented to person, place, and time. Skin: Skin is warm and dry. She is not diaphoretic. Psychiatric: Mood, memory, affect and judgment normal. Nursing note and vitals reviewed. Assessment/Plan: 41 y.o. at 31w2d with Active Non-Hospital Problems Diagnosis Date Noted Supervision of other high risk , antepartum 09/06/2017 Co-Management PLAN OF CARE MD/OB APPOINTMENTS Genetic screening: low risk cell free DNA How often should patient be evaluated: Every 1-2 weeks until delivery Work restrictions: none EVALUATION surveillance: Twice weekly. BPPs q Wednesday with MFM and NSTs q with Dr. Rm Ultrasound: EFW every 4 weeks DELIVERY PLAN Hospital: [facility] Induction or at 39 weeks GBS culture: Contraception: : Gestational diabetes mellitus (GDM) controlled on oral hypoglycemic drug 08/19/2017 Patient tested true fasting glucose levels and all are over 90 mg/dL Start Metformin 500 mg qHS Recommend high protein snacks if she is hungry in the middle of the night. Advised avoiding doughnuts and cakes. Testing fasting glucose levels daily, she can check post prandial glucose levels every other day Serial growth ultrasounds every 4 weeks. Twice weekly testing. BPPs q Mondays with MFM and NSTs q with Dr. Rm Recommend delivery at 39 weeks, recommend a delivery if the EFW is >4500 gms. The patient will need a 75 gm glucose test 4-8 weeks post to evaluate for type 2 diabetes. Polyhydramnios in third trimester 08/19/2017 testing per GDM guidelines as stated above Congenital bicuspid aortic valve 04/19/2017 AMA (advanced maternal age) multigravida 35+ 04/19/2017 History of HELLP syndrome, currently 04/19/2017 Continue baby Aspirin daily Thrombophilia affecting , antepartum 04/19/2017 MTHFR History of delivery, currently 04/19/2017 History of stillbirth in currently patient 01/03/2014 with history of infertility 01/03/2014 Follow up in one week for co-management and BPP. Chris Boss MD PROGRESS NOTE Observed: 08/30/2017 Status: COMPLETED Source: [place] 9:00 AM [facility] REPOSITORY DOS: 08/30/2017 [facility] MATERNAL- MEDICINE FOLLOW UP CONSULT Referring/Requesting Provider: Jones Rm MD PCP: Belkis Rea MD CHIEF COMPLAINT: Abnormal glucose testing, desires TOLAC HISTORY OF PRESENT ILLNESS: Shyanne is a 41 y.o. female at 30w2d seen for a follow up MFM consultation and review of her glucose record. She had one abnormal value on her 3 hour GTT and has been pattern testing for one week. Shyanne was previously seen for a nutrition consultation. A review of her blood glucose log showed frequent fasting elevations, with most ranging 90-95. However, at least two values were not true fasting values as Shyanne ate a high carbohydrate snack around 3:00 AM. With one exception, all postprandial logs were within goal. Shyanne is considering an attempted and desired further consultation. She denies any obstetric complaints today and reports normal movement. OB HISTORY: OB History Para Term AB Living 4 2 1 1 1 2 SAB TAB Ectopic Multiple Live Births 1 0 0 1 2 # Outcome Date GA Lbr Garcia/2nd Weight Sex Delivery Anes PTL Lv 4 Current 3A 03/2014 34w0d 2.551 kg M CS-Unspec Spinal N [place] 3B 03/2014 34w0d 2.098 kg M CS-Unspec [place] Comments: HELLP Syndrome 2 SAB 04/2013 6w0d 1 Term 07/2012 38w0d 3.402 kg M Vag-Spont EPI N FD PAST MEDICAL HISTORY: Past Medical History: Diagnosis Date Bicuspid aortic valve trivial mitral valve, tricuspid valve and aortic valve insufficienty per pt's records Encounter for blood transfusion Heterozygous for MTHFR gene mutation PAST SURGICAL HISTORY: Past Surgical History: Procedure Laterality Date SECTION PERTINENT FAMILY HISTORY: Family History Problem Relation Age of Onset Diabetes Mellitus II Mother High Blood Pressure Father Seizures Father Cancer Maternal Aunt Diabetes Mellitus II Maternal Grandfather MEDS: Current Outpatient Prescriptions Medication Sig Blood Glucose Monitoring Suppl w/Device KIT Please provide glucometer covered by patient's insurance. Use to check blood sugars as directed glucose blood (ONE TOUCH ULTRA) test strip Please provide test strips covered by patient's insurance. Use to check test strips 4-7 times daily as directed Lanc[employer] (LANCET DEVICE WITH EJECTOR) [facility] Please provide lancet covered by patient's insurance. Use to check blood sugars 4-7 times daily as directed Enoxaparin Sodium (LOVENOX SC) Inject 40 mg into the skin 2 times daily. Pt takes it at about 630, and in the evening at about 730 aspirin EC (ECOTRIN LOW STRENGTH) 81 MG EC tablet Take by mouth daily. Vit-DSS-Fe Fum-FA (SE-EVE 19) 29-1 MG TABS ALLERGY: Allergies Allergen Reactions Ibuprofen Rash Seasonal Allergies Other (See Comments) Mold, grasses, ragweed Tape Allergy Allergic to adhesives REVIEW OF SYSTEMS: As mentioned above and in Subjective, all other Review of Systems reviewed and negative. PHYSICAL EXAM: VITAL SIGNS: BP 102/64 Ht 165.1 cm Wt 70 kg (154 lb 6.4 oz) LMP (LMP Unknown) BMI 25.69 kg/m IMAGING: Biophysical profile is 8/8. Polyhydramnios is again noted with a MVP of 9.1 cm. LABS: Orders Only on 08/25/2017 Component Date Value Ref Range Status POCT Protein, Urine 08/30/2017 Negative Negative - Trace mg/dl Final POCT Blood, Urine 08/30/2017 Negative Negative Final POCT Ketones, Urine 08/30/2017 Negative Negative mg/dl Final POCT Glucose, Urine 08/30/2017 Negative Negative mg/dl Final IMPRESSION: Shyanne is a 41 y.o. female at 30w2d with Patient Active Problem List Diagnosis History of stillbirth in currently patient with history of infertility Congenital bicuspid aortic valve AMA (advanced maternal age) multigravida 35+ History of HELLP syndrome, currently Thrombophilia affecting , antepartum History of delivery, currently Abnormal maternal glucose tolerance, antepartum Polyhydramnios in third trimester We discussed the following: Prior delivery: We reviewed the possibility of a trial of labor after section (TOLAC) including the options of expectant management and labor induction. In addition, we discussed the maternal and risks of a trial of labor including infection, blood transfusion, hysterectomy, uterine rupture (less than 1%), and and maternal . The benefits and factors associated with a successful were also reviewed. Her NICHD prediction for a successful is 82.7% (79.9-85.2%). RECOMMENDATIONS: 1. Continue pattern testing for one week. Park was advised to limit snacks after 10 PM. 2. Park remained undecided regarding a TOLAC. Continued counseling on the risks/benefits of is warranted. ACOG handout was provided. 3. Continue weekly BPP and serial growth ultrasounds given polyhydramnios. 4. Delivery is recommended at 39 weeks in the setting of persistent polyhydramnios. 5. Follow up with MFM in 1 week to review blood glucose log. The total patient time of the visit was 25 minutes, of which greater than 50% of the time was spent counseling and coordinating care. Panfilo Valverde, DO PROGRESS NOTE Observed: 08/19/2017 Status: COMPLETED Source: [place] 9:30 AM [facility] REPOSITORY Maternal Medicine Consult Date of Service: 08/19/2017 Referring Provider: Jones Rm Primary Care Provider: Belkis Rea MD Reason for Consult: Dr. Jones Rm requests that Shyanne be evaluated due to polyhydramnios and abnormal glucose tolerance. Vannesa is a 41 y.o. at 28w5d gestation who presents for evaluation of new findings of polyhydramnios and abnormal glucose tolerance. This was initially found 2 weeks prior during follow-up ultrasound. She has since done a glucose tolerance test, which was abnormal. Her 3h GTT returned 08/18 with 1 abnormal (92, 166, 161, 125). Today's BPP again showed polyhydramnios. Patient was concerned and wished to discuss further with MFM. Patient is known to from previous pregnancies due to history of stillbirth and prior twin gestation. She was seen by our genetic counselor earlier this due to age related risks. Obstetric History T1 L2 SAB1 TAB0 Ectopic0 Multiple1 Live Births2 # Outcome Date GA Lbr Garcia/2nd Weight Sex Delivery Anes PTL Lv 4 Current 3A 03/2014 34w0d 2.551 kg M CS-Unspec Spinal N [place] 3B 03/2014 34w0d 2.098 kg M CS-Unspec [place] 2 SAB 04/2013 6w0d 1 Term 07/2012 38w0d 3.402 kg M Vag-Spont EPI N FD PMedHx: Previous stillbirth (term); bicuspid aortic valve PSurgHx: delivery FMHx: Diabete (mom, MGF, brother); HTN (dad); Multiple sclerosis (dad). Denies defects or clotting disorders Meds: Low dose aspirin, PNV, lovenox All: Tape, ibuprofen Social: Denies alcohol, drug and tobacco use Review of Systems All other systems reviewed and are negative. Patient Active Problem List Diagnosis History of stillbirth in currently patient with history of infertility Congenital bicuspid aortic valve AMA (advanced maternal age) multigravida 35+ History of HELLP syndrome, currently Thrombophilia affecting , antepartum History of delivery, currently Abnormal maternal glucose tolerance, antepartum Polyhydramnios in third trimester Physical Exam Vitals: 08/20/17 1056 BP: 90/68 Weight: 69.4 kg (153 lb 1.6 oz) FHT: Positive Presentation: Cephalic Laboratory Test results: 3h GTT (08/18): 92, 166, 161, 125 Ultrasound Results: 1. Intrauterine at 28 5/7 weeks. 2. Polyhydramnios is noted, 28.2 cm. 3. Reassuring testing, BPP 8/10. Impression: Shyanne is a 41 y.o. female who is at 28w5d gestation. 1. Polyhydramnios. We discussed that polyhydramnios is seen in approximately 1-2 percent of the general obstetric population. Polyhydramnios is defined as an NIURKA > 25 cm or a greatest vertical pocket > 8 cm. There are multiple possible etiologies for polyhydramnios. When severe, the most common cause is anomalies (often associated with an underlying genetic diagnosis), while milder cases are more often associated with maternal diabetes, multiple gestation, and idiopathic. Approximately 40% of cases are thought to be idiopathic, followed by 1/3 due to congenital anomalies and 1/4 due to maternal diabetes. With regard to abnormalities, the most common structural abnormalities are those that interfere with swallowing and/or absorption of amniotic fluid. Decreased swallowing may be due to a primary or secondary GI obstruction or neuromuscular problems. The mechanism by which maternal diabetes causes polyhydramnios is unclear. hyperglycemia leading to polyuria is a possible explanation. Polyhydramnios has been associated with an increased risk of various adverse outcomes, including and placental abruption, malposition, macrosomia, umbilical cord prolapse, uterine atony, among others. Because of these increased risks, weekly surveillance is recommended. If testing is reassuring, and no other indication exists, delivery at 39 weeks to 40 weeks is recommended. We would also recommend screening for maternal diabetes. If diabetes is diagnosed, strict glycemic control, twice weekly surveillance and delivery at 39 weeks is recommended. 2. Abnormal glucose tolerance. Although gestational diabetes requires 2 abnormal values for diagnosis, we discussed similar risks associated with 1 abnormal value. These can be similar to gestational diabetes, especially in light of polyhydramnios. Our practice typically follows pattern testing for 1-2 weeks. If blood sugars are found to be normal, we discontinue testing. If blood sugars are increased, we will treat her for gestational diabetes. Patient agreed to meet with marine welder today. 3. AMA. Patient underwent genetic counseling and cell free DNA, which was low risk. 4. See problem list for concerns not addressed in today's visit. Recommendations: 1. RTC on Wednesday at [facility] for BPP. Continue weekly antepartum testing. 2. Follow-up consult sscheduled 08/30 to review blood sugar log. 3. Continue weekly BPP due to polyhydramnios and history of stillbirth. Twice weekly testing should commence of GDM is confirmed. 4. Growth ultrasound every 4 weeks. 5. Delivery at 39 weeks or sooner if clinically indicated. The total patient time of the visit was 15 minutes, of which greater than 50% of the time was spent counseling and coordinating care. GESTATIONAL GTT 3HR Collected: 08/18/2017 Status: F Source: [place] 100G 8:25 AM [facility] REPOSITORY Order Comment: Is Patient Fasting? Y TYPE CODE TESTS RESULT OUT OF RANGE REFERENCE UNITS LAB L501.0650 <105 mg/dL Normal GLU 92 GTT-FASTING Result Comment: GLUCOSE TOLERANCE TEST FOR Reference Interval GESTATIONAL DIABETES Fasting <105 mg/dL 1 hour <190 mg/dl 2 hour <165 mg/dl 3 hour <145 mg/dl LAB L501.0660 <190 mg/dL Normal GLU GTT- 1HR 166 LAB L501.0670 <165 mg/dL Normal GLU GTT- 2HR 161 LAB L501.0680 <145 L Normal GLU GTT- 3HR 126 Performed By: #### L500.4710 #### [facility] [address] [place], [address] CBC-COMPLETE BLOOD CNT Collected: 08/06/2017 Status: F Source: [place] NO DIFF 11:37 AM [facility] REPOSITORY TYPE CODE TESTS RESULT OUT OF RANGE REFERENCE UNITS LAB L100.1000 4.4-11.0 K/mm3 Normal WBC 8.1 LAB L100.1200 4.2-5.4 M/mm3 Low RBC 3.77 LAB L100.1300 12.0-15.0 g/dl Low HGB 11.0 LAB L100.1400 37-47 % Low HCT 33.4 LAB L100.1500 81-99 fL Normal MCV 88.6 LAB L100.1600 27.0-32.0 pg Normal MCH 29.2 LAB L100.1700 32-36 g/gl Normal MCHC 32.9 LAB L100.1810 11.6-14.6 % Normal RDW CV 12.3 LAB L100.1820 35.1-43.9 fl Normal RDW SD 39.6 LAB L100.1900 150-450 K/mm3 Normal PLT 238 LAB L100.2000 6.2-12.0 fl Normal MPV 11.2 Performed By: #### L100.0500 #### [facility] [address] [place], [address] GLUCOSE CHALLENGE GEST Collected: 08/06/2017 Status: F Source: [place] 1H 50G 11:37 AM [facility] REPOSITORY TYPE CODE TESTS RESULT OUT OF RANGE REFERENCE UNITS LAB L501.0250 70-140 mg/dL High GLU GEST 143 50g 1H Performed By: #### L501.0250 #### [facility] [address] [place], [address] MISCELLANEOUS LAB Collected: 06/07/2017 Status: F Source: [place] PROCEDURE 9:26 AM [facility] REPOSITORY Order Comment: Test(s) Ordered: SENDOUT MAFP1 TYPE CODE TESTS RESULT OUT OF RANGE REFERENCE UNITS LAB L801.[address] [facility] LAB TEST Result Comment: Sent directly to testing facility per ordering physician. 06/18/17 1348 MYOUNG Performed By: #### L801.1541 #### [facility] [address] [place], [address] CARDIOLOGY VISIT Observed: 05/26/2017 Status: F Source: [place] REPORT 11:25 AM [facility] REPOSITORY [facility] [address] [place] [address] OFFICE VISIT Date of Service: 05/26/17 MR#: [id number] Acct: [id number] Name: SHYANNE ROCHA Rep #: [id number] : 1975 Provider: Eliel Wild MD Age/Sex: 41/F Location: [facility] Status: Signed HPI HPI Chief Complaint: Initial evaluation. Details: SHYANNE ROCHA, is a 41 F who presents to the office today for initial evaluation regarding her congenital heart disease. She is currently 12 weeks and has a history of a bicuspid aortic valve which has not given her any problems to date. She denies any chest pain or shortness breath or paroxysmal nocturnal dyspnea or pedal edema no neck arm or chest discomfort suggest angina. She has not had any dizzy spells no diaphoresis no near syncope or syncope. She is says that thus far she has had an uneventful . She does have a history of heterozygote MTH FR with 2 mutations and will be treated with Lovenox. She has previously not taken antibiotic prophylaxis with dental prophylaxis. Her physical exam today demonstrates clear lung millard a soft 2/6 systolic murmur noted left sternal border and no pedal edema. Midsystolic opening click is noted. Intake Vital Signs05/26/17 Height 5 ft 6 in 05/26/17 Weight: 138 lb 05/26/17 Body Mass Index (BMI) 22.2 05/26/17 Blood Pressure 92/60 05/26/17 Respiratory Rate 18 05/26/17 Pulse Rate 74 Intake Visit Reasons: Bicuspid AV, 15 wks, Dong did echo Allergies ibuprofen Allergy (Verified 05/26/17 10:44) Rash Medications Aspirin [Aspirin, Baby] 81 mg PO DAILY@0800 01/30/14 [History Confirmed 05/26/17] KAJ28-SP 400 mcg-om3 35 mg-dha 25 mg-epa 5 mg-fish oil chewable tablet tab PO 05/25/17 [History Confirmed 05/25/17] enoxaparin 40 mg/0.4 mL subcutaneous syringe 40 mg SC Q12H ml 05/26/17 [History Confirmed 05/26/17] Ejection fraction %: 60 to 64 PFSH Medical History Bicuspid aortic valve (Chronic) HELLP syndrome (Chronic) MTHFR gene mutation (Chronic) Surgical History History of (Chronic) Family History Mother Hypertension Father Hypertension Diabetes Multiple sclerosis Social History Smoking Status: Never smoker alcohol intake: never ROS Const Const: Negative for fatigue, weakness, difficulty sleeping, frequent falls, headache(s) or excessive sweating Eyes Eyes: Negative for loss of peripheral vision, transient loss of vision, blurry vision or double vision ENT ENT: Negative for headache(s), dizziness, Nosebleed/epistaxis or balance problems Cardio Chest Pain: No Edema: None Muscle aches with walking: None Resp Respiratory: Negative for SOB with activity, SOB at rest, SOB orthopnea\SOB lying down or paroxysmal nocturnal dyspnea GI GI: Negative nausea or heartburn : Negative for hematuria Musc Musc: Negative for muscle aches/ myalgia, muscle weakness, joint pain or balance problems Skin Skin: Negative non-healing lesions, unusual bruising or rash Neuro Neuro: Negative for weakness, frequent falls, blurry vision, headache(s), dizziness, lightheadedness, orthostatic symptoms or double vision Pradeep Hematologic/Lymphatic: Negative for easy bruising Endo Endo: Negative for fatigue, excessive sweating or increased thirst/drinking Psych Psych: Negative for anxiety or depression Allergy Allergy/Immunology: Negative for hives, Negative for rash Cardiology Exam Const Appearance: cooperative, healthy appearing, well developed, well groomed and no acute distress Nutritional Appearance: well nourished and average body habitus Orientation: alert, awake and oriented x3 Head Head: normal to inspection, normocephalic and atraumatic Ears: hearing grossly normal bilaterally and external ears normal Nose: external nose normal, nasal mucous membranes and turbinates normal, nares normal, septum normal, no nasal discharge Face and Sinus: face symmetric Mouth: oral mucosae normal, tongue normal, oropharynx normal and moist mucous membranes Teeth and gingiva: dentition normal Throat: posterior oropharynx normal, tonsils normal and uvula midline Eyes General: appearance normal, both eyes and all related structures Eyelids: eyelids normal Conjunctivae: conjunctivae normal Pupils: PERRL, normal by confrontation and accommodation normal EOM: EOM intact bilaterally Neck Neck: normal visual inspection, trachea midline and no JVD JVD: +5 Carotids: normal carotid upstroke and bounding pulses Chest Chest inspection: normal inspection of the chest, symmetric chest movement and normal respiratory effort Auscultation: Bilateral: Clear to Auscultation Cardio Palpation: normal PMI Rate: regular rate Rhythm: regular rhythm Heart sounds: S1 normal and S2 normal Murmur: Grade 2/6 and early systolic GI GI: normal to inspection, soft, no hepatosplenomegaly and bowel sounds present Neuro General: alert, awake, oriented x3, no focal sensory deficit, gait normal and moves all extremities Skin Skin: no rashes or lesions noted Extremities Pulses: Normal: Right Femoral Pulse, Left Femoral Pulse, Right Dorsalis Pedis Pulse, Left Dorsalis Pedis Pulse, Right Posterior Tibial Pulse, Left Posterior Tibial Pulse, Right Radial Pulse, Left Radial Pulse Lower Extremity Edema: None: Bilateral Musculoskel Musculoskeletal: No joint tenderness Psych Psychological: normal affect Assessment AND Plan 1. Bicuspid aortic valve Q23.1 Plan She does have a bicuspid aortic valve which has been confirmed by echocardiographic evaluation. Her valve is nonstenotic and no regurgitant ejection fraction is noted to be normal. At this time I do not anticipate any significant issues with her whether it is a spontaneous vaginal delivery of by section. Antibiotic prophylaxis is not mandatory and I have explained this to her. Her EKG was also reviewed and is noted to be normal. Thank you for allowing me to participate in her care. If any questions or issues come up during the please do not hesitate to contact me. I however do not think that I need to see her prior to delivery. I will schedule a routine follow- up visit for a year. We may also consider a baseline CAT scan at that time of her chest. 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) Coding Level of Care Code Off vis,new,level 3 Diagnoses Bicuspid aortic valve Q23.1 Coding Level of Care Code Off vis,new,level 3 Diagnoses Bicuspid aortic valve Q23.1 05/26/17 1125 <Electronically signed by Eliel Wild MD> Date Eliel Wild MD Cosigner Signature: Date (if applicable) CC: Belkis Rea MD; Jones Rm MD 12 LEAD EKG PERFORMED Observed: 05/26/2017 Status: F Source: [place] [facility] 10:55 AM [facility] [address] [place] [address] 12 Lead EKG performed by [facility] 05/26/17 1054 MR#: [id number] Acct: [id number] Name: SHYANNE ROCHA Rep #: [id number] : 1975 41 From: Eliel Wild MD Attending Dr: Eliel Wild MD Status: DEP AMB Ordering Dr: Eliel Wild MD Date: 05/26/17 Location: [facility] Sex: F C Admitted: [facility]/12 Lead EKG performed by [facility] ECG Report Interpretation Sinus Rhythm WITHIN NORMAL LIMITSElectronically signed on 05/27/2017 at 13:44 by Eliel Wild 05/27/17 1345 Date Eliel Wild MD CC: Belkis Rea MD Date Dictated: 05/26/17 1054 Date Transcribed: 05/26/171053 Fish Checker: CO Signed ECHOCARDIOGRAM COMPLETE Observed: 05/19/2017 Status: F Source: [place] 5:13 PM [facility] REPOSITORY [facility] Cardiovascular Services [address] [place] [address] Echo Complete 05/19/17 1309 MR#: [id number] Acct: [id number] Name: SHYANNE ROCHA Rep #: [id number] : 1975 41 From: Eliel Wild MD Attending Dr: Jones Rm MD Status: REG CLI Ordering Dr: Jones Rm MD Date: 05/19/17 Location: [facility] Sex: F C Admitted: Reason For Study: bicuspid aortic valve Procedure This was a 2D Doppler, Color Flow transthoracic echocardiogram. Exam performed in department. Left Ventricle Normal LV size. Left ventricular systolic function is normal. The estimated ejection fraction is 60 %. No regional wall motion abnormalities noted. Right Ventricle Normal RV size. Normal systolic function. Atria Normal left atrium. Normal right atrium. Mitral Valve Normal mitral valve. Mild (1+) eccentric mitral valve insufficiency. Tricuspid Valve Normal tricuspid valve. Mild (1+) tricuspid valve insufficiency. Pulmonary artery systolic pressure is 26 mmHg. Aortic Valve Bicuspid aortic valve. There is no aortic stenosis. Pulmonic Valve Normal pulmonic valve. Great Vessels Normal aortic root. The pulmonary artery is normal size. Normal inferior vena cava. Pericardium/Pleural No pericardial effusion. MMode/2D Measurements AND Calculations LVIDd: 4.9 cm IVSd: 0.91 cm LVOT diam: 1.9 cm LVIDs: 3.0 cm LVPWd: 0.96 cm LVOT area: 2.8 cm2 RVDd: 2.8 cm FS: 38.6 % Ao root diam: 2.5 cm LAV(MOD-bp): 39.2 ml LA A4 area: 16.4 cm2 LA dimension: 3.0 cm LAV(MOD-bp) Indexed: 23.7 ml/m2 LAV(MOD-sp2): 36.1 ml LAV(MOD-sp4): 41.2 ml RA A4 area: 16.2 cm2 Doppler Measurements AND Calculations MV E max jolene: 83.6 cm/sec Lat Peak E' Jolene: 17.9 cm/sec Med Peak E' Jolene: 13.4 cm/sec MV A max jolene: 71.4 cm/sec E/E' lat: 4.7 E/E' med: 6.2 MV E/A: 1.2 Ao V2 max: 198.4 cm/sec LV V1 max: 142.9 cm/sec SV(LVOT): 74.9 ml Ao max P.7 mmHg LV V1 max P.2 mmHg Ao V2 mean: 137.5 cm/sec LV V1 mean P.0 mmHg Ao mean P.4 mmHg LV V1 mean: 93.3 cm/sec Ao V2 VTI: 39.5 cm LV V1 VTI: 27.0 cm NIKKI(I,D): 1.9 cm2 NIKKI(V,D): 2.0 cm2 PA V2 max: 108.1 cm/sec TR max jolene: 232.9 cm/sec TR max P.7 mmHg Interpretation Summary Normal LV size. Left ventricular systolic function is normal. The estimated ejection fraction is 60 %. Mild (1+) eccentric mitral valve insufficiency. Bicuspid aortic valve. There is no aortic stenosis. Ordering Physician: Jones Rm Referring Physician: Belkis Rea Performed By: Yoli Hdz, VENTURA, RVT 05/19/17 171 Date Eliel Wild MD CC: Belkis Rea MD; Jones Rm MD Date Dictated: 05/19/17 1309 Date Transcribed: 05/19/171712 Fish Checker: Signed PROGRESS NOTE Observed: 04/19/2017 Status: COMPLETED Source: [place] 10:45 AM [facility] Reason for Referral Shyanne was seen by myself and DANIAL Rodriguez on 04/19/2017 at the [facility]. Dr. Jones Rm requested a genetic consult to discuss the influence of maternal age on outcome in in addition to a history of a previous stillbirth. History At the time of the visit Shyanne was 41 years of age and approximately 11 weeks 2 days by prior ultrasound dating with an ROBBNI of 11/06/17. 07/2012 Stillborn male; exact etiology for loss not determined; suspected placental/cord etiology based on placental pathology. Autopsy on baby not performed. Work-up was negative for antiphospholipid antibody syndrome. Reportedly ABIODUN-1, MTHFR compound heterozygote. 04/2013 miscarriage at 6 weeks 0 days. 03/2014 twin boys born at 34 weeks' gestation - healthy. Patient reports she has bicuspid aortic valve (records not available at the time of the visit). She was followed by [facility] as a child and was seen 1x by an adult actuarial consultant about 10 years ago (ordering [facility] records), but she could not remember the name of the physician or specific follow-up recommendations. Family and Medical History Shyanne history of stillborn as mentioned above. Shyanne's father dx with multiple sclerosis at age at age 54 years. Is still mobile; followed by and receives infusions at the [facility]. Shyanne's maternal aunt had breast cancer diagnosed at 50 years of age. No additional known cancers on Shyanne's mother's side of the family. Shyanne's , Tae's father has a Parkinson's-like condition diagnosed at age 51 years, in addition to multiple strokes, and dementia. His sister has multiple sclerosis, neurological problems including a tremor, and history of breast cancer. The remainder of the and family medical history was also obtained which was non-contributory. There are no additional family members with known congenital heart defects or sudden cardiac . Genetic Counseling Summary Advanced Maternal Age: The increasing risk of numerical chromosomal abnormalities with increasing maternal age was reviewed. At a maternal age of 41 y.o. the term risk for any chromosome abnormality is 1/81 and the risk for Down syndrome is 1/125. We discussed the different options of screening and diagnostic testing for chromosome abnormalities, neural tube and other defects and genetic conditions. Bicuspid Aortic Valve: Bicuspid aortic valve (BAV) is the most common congenital heart defect with an estimated prevalence of 0.5 2 % in the general population. It falls in the spectrum of left-sided heart defects, also known as left ventricular outflow tract obstructive (LVOTO) defects. BAV is often identified in otherwise healthy, asymptomatic individuals, but can be associated with serious care home health risks including progressive aortic valve disease (stenosis or regurgitation) and thoracic aortic aneurysm and dissection. BAV can occur in isolation but may also be one feature of an underlying connective tissue disorder (e.g. Marfan, Loeys-Kenn, and vascular Kalyani-Danlos syndromes) and other syndromes such as Lucia and Feliz syndromes. Current research indicates that BAV most likely follows an autosomal dominant inheritance pattern with incomplete penetrance and variable expressivity. In non-syndromic families, when BAV is identified in a proband, screening identifies BAV in a first-degree family member in 9% of these individuals. Recurrence risks for offspring can include BAV but also more significant LVOTO defects. Echocardiography screening is recommended for all first-degree relatives of someone with BAV, and echocardiogram is recommended for offspring of an individual with BAV. Although genetic testing for syndromic or possibly syndrome individuals is an option to clarify diagnosis, the yield for finding a molecular gene change in those with isolated non- syndromic BAV is currently low. Women with a bicuspid aortic valve should be counseled regarding potential risks and treatment prior to and during . Potential risks that should be discussed include heritable congenital heart disease, aortic enlargement or dissection, and complications of aortic stenosis () and/or aortic regurgitation (AR). MTHFR and ABIODUN-1 mutations: We discussed that MTHFR mutations are common in the general population. Recent evidence suggests that MTHFR mutations alone do not convey an increased risk for thromboembolism in or in a non state. Furthermore, they are not associated with adverse outcomes, including recurrent loss. Given no prior history of venous thromboembolism, anticoagulation during or the period is not indicated. Discontinuation of enoxaparin isrecommended. There is a potential benefit of low-dose aspirin in reducing the risk of preeclampsia in some populations and continuation of a daily low-dose aspirin is recommended. While there may be a slight increased risk of thromboembolism, anticoagulation during is not recommended in women with a ABIODUN-1 mutation. ABIODUN-1 mutation has not been associated with adverse outcomes. Follow up testing options discussed included: Maternal serum cell-free DNA screening (chromosome) + 2nd trimester MSAFP screening at 15 weeks' gestation (neural tube) Nuchal translucency measurement between 11 weeks 0 days and 13 weeks 6 days Sequential Screen (NT + maternal analyte screening) Amniocentesis for diagnostic testing 18-21 week anatomy scan Echocardiogram [place] carrier screening (such as cystic fibrosis, SMA, Fragile X) Cardiology consult for Shyanne including echocardiogram Following our discussion Shyanne elected to have: Maternal serum cell free DNA screening - blood drawn today NT measurement performed today MSAFP to be drawn at 15-16 weeks' gestation 18-21 week anatomy scan with echocardiogram Cardiology consult for Shyanne including echocardiogram Ultrasound Findings The ultrasound was consistent with prior established dating. NT measurement 0.8 mm (normal range). Please refer to the ultrasound report for full details. Follow-up Patient and your office will be notified of results of maternal serum cell-free DNA screening in approximately 2 weeks. Recommend cardiology consult and echocardiogram. MSAFP screening at 15-16 weeks' gestation. Recommend detailed 18 week anatomy scan with echocardiogram at 20-22 weeks - [facility] be done in [facility] office, if preferred. Recommend echocardiograms for all first degree relatives (Shyanne's parents, sister, and children). Serial growth ultrasounds every 4 weeks beginning at 24 weeks. Weekly Testing beginning at 32 weeks. Delivery at 39 weeks. The total patient time of the visit was 40 minutes, of which greater than 50% of the time was spent counseling and coordinating care. Panfilo Valverde DO PROGRESS Observed: 04/14/2017 Status: COMPLETED Source: [place] 9:53 AM [facility] [place] REPOSITORY HNO ID: [id number] Author: Kayli Mcneal LPN Service: (none) Author Type: (none) Type: Progress Notes Filed: 04/14/2017 9:53 AM Note Text: 41 year old female here for INACTIVATED INFLUENZA VACCINE. 1647-0319 Season Patient is identified by name and date of : Yes [] CONTRAINDICATIONS color enhanced section Age less than 6 months? No Allergy to eggs, chicken, chicken feathers, or chicken dander? No Allergy to thimerosal (a preservative) or formaldehyde? No History of severe reaction to any vaccine component or a previous dose of influenza vaccination? No History of Guillain-Benzonia Syndrome within 6 weeks after a previous influenza vaccine? No Current moderate or severe illness? No Current temperature greater or equal to 100.4F? No History of Bone Marrow Transplant in past 6 months or solid organ transplant in the past 3 months ? No [] VERIFICATION color enhanced section Was the answer Yes for any of the above contraindications? No contraindications present. Acceptable to proceed with vaccine. Patient/guardian agrees the above answers are true to the best of their knowledge? Yes Flu vaccine information sheet given? Yes See immunization activity in [facility] for details of immunizations adminstered today. Patient age: [age] year old For The 5976-8406 Flu Season 6-35 months old: Fluzone 0.25 ml - IM (Preservative Free) 3 years of age: Fluzone 0.5 ml - IM (Preservative Free) 3 years and older: Fluzone 0.5 ml- IM-(with Preservatives) 65+ years old: Fluzone High-Dose 0.5 ml - IM (Preservative Free) REMEMBER: If patient is less than 9 years of age and this is the first vaccine of Influenza to be received in any flu season, they should receive a second dose in one months time. Kayli Mcneal LPN URINE DRUG SCREEN Collected: 04/02/2017 Status: F Source: [place] VASQUE[place]) 10:23 AM [facility] REPOSITORY Order Comment: List of Drugs Taken or Suspected? UNK TYPE CODE TESTS RESULT OUT OF RANGE REFERENCE UNITS LAB L505.0075 TO BE Normal CONFIRMED Result Comment: CONFIRMATORY TESTING FOR ALL POSITIVE URINE DRUG SCREEN RESULTS WILL ONLY BE SENT OUT UPON PHYSICIAN ORDER. VISTA Urine Drug Screen methods provide only preliminary analytical test results. A more specific alternate chemical method must be used in order to obtain a confirmed analytical result. Gas chromatography/mass spectrometery (GC/MS) is the preferred confirmatory method. Clinical consideration and professional judgement should be applied to any drug of abuse test result, particularly when preliminary positive results are used. URINE TCA TESTING MUST BE ORDERED SEPARATELY. USE TEST MNEMONIC: [facility] LAB L505.5005 VISTA UDS PH 7 Normal LAB L505.5015 <1000 ng/mL AMPHETAMINES Normal NEGATIVE LAB L505.5025 < 200 ng/mL BARBITIURATES Normal NEGATIVE LAB L505.5035 < 200 ng/mL BENZODIAZIPINE Normal NEGATIVE LAB L505.5045 < 300 ng/mL COCAINE Normal NEGATIVE LAB L505.5055 < 500 ng/mL ECSTACY Normal NEGATIVE LAB L505.5065 < 300 ng/mL METHADONE Normal NEGATIVE LAB L505.5075 < 300 ng/mL OPIATES Normal NEGATIVE LAB L505.5085 < 25 ng/mL PCP Normal NEGATIVE LAB L505.5095 < 50 ng/mL THC Normal NEGATIVE Performed By: #### L505.5000 #### [facility] [address] [place], [place], [address] URINALYSIS, ROUTINE Collected: 04/02/2017 Status: F Source: [place] (DIPSTICK) 10:23 AM [facility] REPOSITORY Order Comment: How was Urine Obtained? Urine, Random TYPE CODE TESTS RESULT OUT OF RANGE REFERENCE UNITS LAB L400.3000 Yellow COLOR Normal Yellow LAB L400.3050 Clear Normal CLARITY Sl. Cloudy LAB L400.3200 Normal mg/dl Normal GLUCOSE, UR Normal LAB L400.3300 Negative mg/dL Normal BILIRUBIN URINE Negative LAB L400.3400 Negative mg/dl Normal KETONE UR Negative LAB L400.3465 1.002-1.030 Normal SP.GR. DIPSTX 1.010 LAB L400.3550 5.0 - 8.0 pH UR Normal 7.0 LAB L400.3600 Negative mg/dl PROT Normal DIPSTX Negative LAB L400.3700 Normal mg/dl Normal UROBILI Normal LAB L400.3750 Negative Normal NITRITE UR Negative LAB L400.3780 Negative /ul Normal OCCULT BLOOD-UR Negative LAB L400.3800 Negative /ul High LEUK ESTERASE 100 Performed By: #### L400.2011 #### [facility] [address] [place], [place], [address] CBC W/DIFF, AUTOMATED Collected: 04/02/2017 Status: F Source: [place] 10:23 AM [facility] REPOSITORY TYPE CODE TESTS RESULT OUT OF RANGE REFERENCE UNITS LAB L100.1000 4.4-11.0 K/mm3 Normal WBC 7.1 LAB L100.1200 4.2-5.4 M/mm3 Normal RBC 4.27 LAB L100.1300 12.0-15.0 g/dl Normal HGB 12.9 LAB L100.1400 37-47 % Normal HCT 38.9 LAB L100.1500 81-99 fL Normal MCV 91.1 LAB L100.1600 27.0-32.0 pg Normal MCH 30.2 LAB L100.1700 32-36 g/gl Normal MCHC 33.2 LAB L100.1810 11.6-14.6 % Normal RDW CV 12.7 LAB L100.1820 35.1-43.9 fl Normal RDW SD 42.1 LAB L100.1900 150-450 K/mm3 Normal PLT 257 LAB L100.2000 6.2-12.0 fl Normal MPV 11.3 LAB L100.2100 47-70 % Normal NEUT% 69.3 LAB L100.2200 19-41 % Normal LY% 22.1 LAB L100.2300 0-10 % Normal MONO% 6.8 LAB L100.2400 0-5 % Normal EO% 1.4 LAB L100.2500 0-1 % Normal BASO% 0.3 LAB L100.2550 0.0-0.9 % Normal IM GRAN % 0.100 Result Comment: IG% - Immature Granulocytes (promyelocytes, myelocytes and metamyelocytes) > 1% indicates that a LEFT SHIFT is Present. LAB L100.2620 2.0-7.7 X10 3/uL Normal Absolute Neut 4.9 LAB L100.2720 0.83-4.51 X10 3/ul Normal Absolute Lymph 1.57 Performed By: #### L100.0100 #### [facility] [address] [place] [address], [id number] THYROID STIM HORMONE Collected: 04/02/2017 Status: F Source: [place] (TSH) 10:23 AM [facility] REPOSITORY TYPE CODE TESTS RESULT OUT OF RANGE REFERENCE UNITS LAB L501.9520 0.358-3.74 uIU/mL Normal TSH 1.06 Performed By: #### L501.9520 #### [facility] [address] [place], [place], [address] RUBELLA IGG Collected: 04/02/2017 Status: F Source: [place] 10:23 AM [facility] REPOSITORY TYPE CODE TESTS RESULT OUT OF RANGE REFERENCE UNITS LAB L509.4000 IU/mL Normal Rubella IgG 304.3 Result Comment: Antibody results Interpretation of Immune Status < 5 IU/ml Presumed Non-immune 5 - < 10 IU/ml Equivocal > or = 10 IU/ml Presumed Immune Performed By: #### L509.4000, L3890.6005 #### [facility] [address] [facility] [place], [address] HIV - [facility] Collected: 04/02/2017 Status: F Source: [place] 10:23 AM [facility] REPOSITORY TYPE CODE TESTS RESULT OUT OF RANGE REFERENCE UNITS LAB L3890.6005 Nonreactive Normal HIV - [facility] Non-Reactive Performed By: #### L509.4000, L3890.6005 #### [facility] [address] [place], [address] T AND S-NO Collected: 04/02/2017 Status: F Source: [place] CHARGE W/PNP 10:23 AM [facility] REPOSITORY Order Comment: Reason for Type AND Screen/Red Cells: Surgery? N TYPE CODE TESTS RESULT OUT OF RANGE REFERENCE UNITS LAB B10.0800 O Normal BLOOD POSITIVE TYPE GEL LAB B100.4050 Normal Ab SCREEN NEGATIVE GEL Performed By: #### B100.7550 #### [facility] [address] [place], [address] HEPATITIS B SURFACE Collected: 04/02/2017 Status: F Source: [facility] 10:23 AM [facility] REPOSITORY TYPE CODE TESTS RESULT OUT OF RANGE REFERENCE UNITS LAB L3100.0400 Negative Normal HB Negative SURF AG Result Comment: Performed at: [facility] [id number] Oil Extractor: Jake Crocker PhD, Phone: [phone] Performed By: #### L3100.0390, L3100.0625 #### [facility] (refer to report for specific site) refer to report for address and phone number HEPATITIS C ANTIBODIES Collected: 04/02/2017 Status: F Source: [place] 10:23 AM [facility] REPOSITORY TYPE CODE TESTS RESULT OUT OF RANGE REFERENCE UNITS LAB L3100.0650 0.0-0.9 s/co ratio Normal HEP C AB <0.1 Result Comment: Negative: < 0.8 Indeterminate: 0.8 - 0.9 Positive: > 0.9 The CDC recommends that a positive HCV antibody result be followed up with a HCV Nucleic Acid Amplification test (808884). Performed By: #### L3100.0390, L3100.0625 #### [facility] (refer to report for specific site) refer to report for address and phone number RPR Collected: 04/02/2017 Status: F Source: [place] 10:23 AM [facility] REPOSITORY TYPE CODE TESTS RESULT OUT OF REFERENCE UNITS RANGE LAB L700.5100 NONREACTIVE Normal RPR NONREACTIVE Performed By: #### L700.5100 #### [facility] [address] [place], [address] CT/NG [facility] BY PCR Collected: 03/17/2017 Status: F Source: [place] 12:30 PM [facility] REPOSITORY TYPE CODE TESTS RESULT OUT OF RANGE REFERENCE UNITS LAB L8200.2100 Negative Normal Chlam Negative Trac PCR LAB L8200.2200 Negative Normal NG by Negative PCR Performed By: #### L8200.2000 #### [facility] [address] [place], [address] HCG TITER QUANT., Collected: 03/12/2017 Status: F Source: [place] SERUM 10:59 AM [facility] REPOSITORY TYPE CODE TESTS RESULT OUT OF RANGE REFERENCE UNITS LAB L700.8000 <9 non-preg mIU/mL High HCG 62308 QUANT. Performed By: #### L700.8000 #### [facility] [address] [place], [place], [address] URGENT CARE VISIT Observed: 02/26/2017 Status: F Source: [place] REPORT 3:03 PM [facility] REPOSITORY [facility] [address] [place] [address] 6 [place] [address] OFFICE VISIT Date of Service: 02/26/17 MR#: [id number] Acct: [id number] Name: SHYANNE ROCHA Rep #: [id number] : 1975 Provider: Yovani FRAZIER Age/Sex: 41/F Location: [facility] Status: Signed Intake Vital Signs02/26/17 Height 5 ft 6 in 02/26/17 Weight: 122 lb 02/26/17 Body Mass Index (BMI) 19.7 Intake Visit Reasons: rash Allergies ibuprofen Allergy (Verified 02/26/17 08:07) Rash Medications Aspirin [Aspirin, Baby] 81 mg PO DAILY@0800 01/30/14 [History Confirmed 03/29/14] Folic Acid [Folic Acid] 4 tab PO DAILY 01/30/14 [History Confirmed 03/29/14] Opn047/Iron Fumarate/FA/Dss [Se-Eve 19 Tablet] 1 t PO DAILY 01/30/14 [History Confirmed 03/29/14] Ferrous Sulfate [Iron Supplement] 325 mg PO BID 03/15/14 [History Confirmed 03/29/14] Oxycodone [Oxyir] 5 - 10 mg PO Q4H PRN PRN #30 tab 03/30/14 [Rx] Senna/Docusate Sodium [Senokot-S] 1 tab PO BID PRN #30 tab 03/30/14 [Rx] prednisone 10 mg tablet 10 mg PO QDAY 12 Days #30 tab 02/26/17 [Rx Confirmed 02/26/17] PFS Social History Smoking Status: Never smoker alcohol intake: never HPI rash: Details: SHYANNE ROCHA, is a 41 F who presents to the office today for a rash to her skin for the past 1 week. Patient states that she has been around multiple children with roseola and is questioning whether or not she has a case of roseola herself. She denies any fever, chills, sweats. She has had no new foods added to her diet and denies any new detergents or environmental factors. She describes the rash as pruritic and spreading from her lower extremities up through her torso. She has tried taking Benadryl with no relief. No nausea, vomiting, diarrhea. No other associated symptoms or alleviating/aggravating factors. ROS Const Constitutional: No chills, fever(s), fatigue or abnormal sleep pattern Resp Respiratory: No shortness of breath or chest congestion Cardio Cardiology: No chest pain at rest, chest pain with exertion or shortness of breath Skin Skin: Positive for rash; no wounds or lesions Neuro Neurology: No confusion Psych Psychiatric: No abnormal sleep pattern, No confusion Endo Endocrine: No fatigue Exam Const General: cooperative, healthy appearing Eyes General: appearance normal, both eyes and all related structures Pupils: PERRL Resp Effort AND Inspection: normal respiratory effort Auscultation: Bilateral: Clear to Auscultation Cardio Rate: regular rate Rhythm: regular rhythm Heart Sounds: S1 normal, S2 normal Skin General: dry skin Rashes: rashes noted (Blanchable maculopapular rash to the lower extremities as well as the torso) Trauma: no lacerations or abrasions Wounds: no wounds Psych Appearance: grossly normal Assessment AND Plan Problems 1. Contact dermatitis, unspecified contact dermatitis type, unspecified trigger L25.9; L25.9 Status Acute Plan Patient advised to use steroid taper 12 days. Patient also educated on other symptomatic management techniques. To be seen in 7-10 days if no improvement; sooner if worsening of symptoms. Advised of potential red flags and when appropriate report to the ED. Patient verbalized understanding of the above. Medications New: prednisone Take 4 tabs once daily days 1-3, 3 tabs once dai10 mg PO QDAY 12 days L25.9 ly days 4-6, 2 tabs once daily days 7-9 and 1 tab once daily d ays 10-12. Coding Level of Care Code Off vis,new,level 3 Diagnoses Contact dermatitis, unspecified contact dermatitis type, unspecified trigger L25.9; L25.9 Contact dermatitis trigger: unspecified trigger Contact dermatitis type: unspecified 02/26/17 1503 <Electronically signed by Yovani FRAZIER> Date Yovani FRAZIER Cosigner Signature: Date (if applicable) CC: ALLERGIES ALLERGIES DATE TYPE / CODE NAME / CODE REACTION SEVERITY SOURCE 01/24/2018 Drug adhesive Unknown Unknown [place] Allergy/[id number]( tape/[id number] [facility]) 4(RXNORM) Hospital Repository 11/26/2017 Drug ibuprofen/F006 Rash Unknown [facility] Allergy/[id number]( 767168(RXNORM) [facility]) Hospital Repository 01/03/2014 DRUG IBUPROFEN [place] INGREDI/[id number]([facility]'s NOMED CT) Hospital Repository 01/03/2014 Environ/[id number](S SEASONAL [place] NOMED CT) ALLERGIES [facility] Repository 01/03/2014 Chemical/[id number]( TAPE ALLERGY Allergic to [place] SNOMED CT) adhesives [facility] Repository 05/11/2006 Environ/[id number](S SEASONAL Mold, grasses, [place] NOMED CT) ALLERGIES ragweed [facility] Repository 05/11/2006 Miscellaneous OTHER [place] Allergy/[id number](S Clinic Main NOMED CT) [place] Repository 11/18/2004 DRUG IBUPROFEN HIVES [place] INGREDI/[id number](S Clinic Main NOMED CT) [place] Repository ENCOUNTERS ENCOUNTERS ADMIT/DISCHARGE ACCOUNT ADMITTING ENCOUNTER LOCATION SOURCE NUMBER CLASS 02/01/2018 [id number] Ambulatory [facility] ing:PSN Repository 01/24/2018/01/25/20 [id number] Ambulatory BMSBuilding:B Jeramy [address] Repository 01/01/2018/01/02/20 [id number] Ambulatory [address] Repository 12/17/2017 [id number] Ambulatory [facility] ing:LAB.FUTUR Repository E 12/15/2017 [id number] Ambulatory [facility] ing:LABSPEC Repository 11/26/2017/11/27/19 [id number] Ambulatory BMSBuilding:B Jeramy [address] Repository 11/02/2017/11/06/19 [id number] [place], Inpatient [facility] 18 [facility] ing:WPRoom: Repository IH180Ddc: 1 11/01/2017 [id number] Ambulatory Building:[facility] Repository 11/01/2017 [id number] Ambulatory Building:[facility] Repository 10/25/2017/10/26/19 [id number] Ambulatory Building:[address] Repository 10/25/2017/10/26/19 [id number] Ambulatory Building:[address] Repository 10/21/2017/10/22/19 [id number] Ambulatory [address] ing:WPOUT Repository 10/20/2017/10/21/19 [id number] Ambulatory BMSBuilding:Deepak Deshpande [address] Repository 10/18/2017 [id number] Ambulatory Building:[facility] Repository 10/18/2017 [id number] Ambulatory Building:[facility] Repository 10/14/2017 [id number] Ambulatory [facility] ing:LABSPEC Repository 10/11/2017 [id number] Ambulatory Building:[facility] Repository 10/11/2017 [id number] Ambulatory Building:[facility] Repository 10/04/2017 [id number] Ambulatory Building:[facility] Repository 10/04/2017 [id number] Ambulatory Building:[facility] Repository 09/27/2017 [id number] Ambulatory [facility] ing:LAB Repository 09/27/2017 [id number] Ambulatory Building:[facility] Repository 09/27/2017 [id number] Ambulatory Building:[facility] Repository 09/20/2017 [id number] Ambulatory Building:[facility] Repository 09/20/2017 [id number] Ambulatory Building:[facility] Repository 09/13/2017 [id number] Ambulatory Building:[facility] Repository 09/13/2017 [id number] Ambulatory Building:[facility] Repository 09/10/2017/09/11/19 [id number] Ambulatory BMSBuilding:Deepak Deshpande [address] Repository 09/06/2017 [id number] Ambulatory Building:[facility] Repository 09/06/2017/09/07/19 [id number] Ambulatory Building:[address] Repository 08/30/2017 [id number] Ambulatory Building:[facility] Repository 08/30/2017 [id number] Ambulatory Building:[facility] Repository 08/23/2017 [id number] Ambulatory Building:[facility] Repository 08/19/2017/08/20/19 [id number] Ambulatory Building:[address] Repository 08/19/2017/08/20/19 [id number] Ambulatory Building:[address] Repository 08/19/2017/08/20/19 [id number] Ambulatory Building:[address] Repository 08/19/2017/08/20/19 [id number] Ambulatory Building:[address] Repository 08/18/2017 [id number] Ambulatory [facility] ing:LAB Repository 08/06/2017 [id number] Ambulatory [facility] ing:WOBLAB Repository 08/04/2017/08/05/19 [id number] Ambulatory Building:[address] Repository 07/05/2017/07/06/19 [id number] Ambulatory Building:[address] Repository 06/07/2017 [id number] Ambulatory [facility] ing:LAB Repository 06/07/2017 [id number] Ambulatory Building:[facility] Repository 05/26/2017/05/27/19 [id number] Ambulatory BMSBuilding:B [address] Repository 05/25/2017 [id number] Ambulatory BMSBuilding:B [facility] Repository 05/19/2017 [id number] Ambulatory [facility] ing:CVS Repository 05/19/2017 [id number] Ambulatory BMSBuilding:[facility] Repository 04/19/2017/04/19/19 [id number] Ambulatory Building:[address] Repository 04/19/2017/04/19/19 [id number] Ambulatory Building:[address] Repository 04/14/2017/04/15/19 [id number] Ambulatory [address] Repository 04/02/2017 [id number] Ambulatory [facility] ing:WOBLAB Repository 03/17/2017 [id number] Ambulatory [facility] ing:LABSPEC Repository 03/12/2017 [id number] Ambulatory [facility] ing:MASS Repository 03/12/2017 [id number] [facility] ing:WOBLAB Repository 02/26/2017/02/27/20 [id number] Ambulatory BMSBuilding:Deepak Deshpande [address] Repository PAYERS PAYERS ENCOUNTER GUARANTOR PAYER SUBSCRIBER SOURCE 02/01/2018 SHYANNE Lynnette Primary TAE Deshpande [id number] Insurance:AULTCAREPol MCALLISTERDOB: [facility] RADHA [facility] icy Number: [id number] Hospital of [facility] [place] [address]Vqn: [id number] Repository Date:9658-77-12[address] ) [address] [address]WV: 02/01/2018 Secondary NOT GIVENUNK [place] Insurance:SELF PAY [facility] Number: Effective Repository Date:2018-01-24 01/24/2018 SHYANNE [place] TAE Deshpande [id number] Insurance:AULTCAREPol MC[facility]: [id number] Hospital of [facility] [place] [address]Fko: [id number] Repository Date:4024-28-64[address] () [address], [place] [address]HJ: 01/24/2018 Secondary NOT GIVENUNK Jer[place] Insurance:SELF PAY [facility] Number: Effective Repository Date:2018-01-24 12/17/2017 SHYANNE [place] I[place] TAE Deshpande [id number] Insurance:AULTCAREPol MCALLISTERDOB[facility] Number: [id number] Hospital of [facility] [place] [address]Vob: [id number] Repository Date:2187-37-50TS [address] () [address], [place] [address]MS: 12/17/2017 Secondary NOT GIVENUNK Jer[place] Insurance:SELF PAY [facility] Number: Effective Repository Date:2017-12-17 12/15/2017 SHYANNE HAMMERISTER1415 Insurance:AULTCAREPol MCALLISTERDOB: [facility] RADHA YOU icy Number: [id number] Hospital of [facility] [place] [address]Gds: [id number] Repository Date:6151-24-04VH [address] () [address], [place] [address]DA: 12/15/2017 Secondary NOT GIVENUNK Jeramy Insurance:SELF PAY [facility] Number: Effective Repository Date:2017-12-15 11/26/2017 SHYANNE LOZALLISTER1415 Insurance:AULTCAREPol MCALLISTERDOB: [facility] icy Number: [id number] Hospital of [facility] [place] [address]Kjk: [id number] Repository Date:7665-81-73RN [address] () [address], [place] [address]FZ: 11/26/2017 Secondary NOT GIVENUNK [place] Insurance:SELF PAY [facility] Number: Effective Repository Date:2017-11-26 11/02/2017 SHYANNE Deshpande [id number] Insurance:AULTCAREPol MCALLISTERDOB: [facility] RADHA YOU, icy Number: [id number] Hospital of [facility] [place] [address]Aol: [id number] Repository Date:9890-08-39NC [address] () [address], [place] [address]UI: 11/02/2017 Secondary NOT GIVENUNK [place] Insurance:SELF PAY [facility] Number: Effective Repository Date:2017-10-22 11/01/2017 SHYANNE Gardner [facility] MCALLISTERDOB: Insurance:AULTCAREPol MCALLISTERDOB: Hospital icy Number: [id number] Repository RADHA [id number] [address] [place], [place] Date: [place], [place] [address]Rih: [phone]) [phone] () 11/01/2017 Secondary SHYANNE [place] [facility] Insurance:AULTCAREPol [facility]: Hospital icy Number: [id number] Repository [id number] 5 RADHA Date: [place] [address] 11/01/2017 SHYANNE Primary SHYANNE [place] [facility] MCALLISTERDOB: Insurance[facility]: [facility] icy Number: [id number] Repository RADHA [id number] [address] [place], [place] Date: [place], [place] [address]Feu: [phone] () 11/01/2017 Secondary SHYANNE [place] [facility] Insurance:AULTCAREPol [facility]LL[facility]: Hospital icy Number: [id number] Repository [id number] 5 [address] Date: [place] [address] 10/25/2017 SHYANNE Primary SHYANNE [place] [facility] MCALLISTERDOB: Insurance:BLOOMINGTONCAREPol [facility]: [facility] icy Number: [id number] Repository RADHA [id number] [address] [place], [place] Date: [place], [place] [address]Fvy: [phone] () 10/25/2017 Secondary SHYANNE [place] [facility] Insurance:AULTCAREPol MCALLISTERDOB: Hospital icy Number: [id number] Repository [id number] 5 [address] Date: [place] [address] 10/25/2017 SHYANNE Primary SHYANNE [place] [facility] MCALLISTERDOB: Insurance:AULTCAREPol [facility]ITALLLISTERD[facility]: [facility] icy Number: [id number] Repository RADHA [id number] [address] [place], [place] Date: [place], [place] [address]Jja: [phone] (HP) 10/25/2017 Secondary SHYANNEGAEL [facility] Insurance:AULTCAREPol MCALLISTERDOB: [facility] icy Number: [id number] Repository [id number] [address] Date: [place] [address] 10/21/2017 SHYANNE M Primary Tae Deshpande [id number] Insurance:AULTCAREPol McallisterDOB: [facility] icy Number: [id number] Hospital of [facility] [place] [address]Ume: [id number] Repository Date:2262-56-99DL BOX () [address] [place] [address]BC: 10/21/2017 Secondary NOT GIVENUNK Jer[place] Insurance:SELF PAY [facility] Number: Effective Repository Date:2017-10-21 10/20/2017 SHYANNE M Primary Tae Deshpande [id number] Insurance:AULTCAREPol McallisterDOB: [facility] icy Number: [id number] Hospital of [facility] [place] [address]Oyf: [id number] Repository Date:5068-14-80IS BOX () [address] [place] [address]BO: 10/20/2017 Secondary NOT GIVENUNK Jer[place] Insurance:SELF PAY [facility] Hospital Number: Effective Repository Date:2017-10-20 10/18/2017 SHYANNE Primary SHYANNE [facility] MCALLISTERDOB: Insurance:AULTCAREPol MCALLISTERDOB: [facility] icy Number: [id number] Repository RADHA [id number] [address] [place], [place] Date: [place], [place] [address]Ird: [phone] (HP) 10/18/2017 Secondary SHYANNE [place] [facility] Insurance:AULTCAREPol MCALLISTERDOB: [facility] icy Number: [id number] Repository [id number] [address] Date: [place] [address] 10/18/2017 SHYANNE Primary SHYANNEGAEL [facility] MCALLISTERDOB: Insurance:AULTCAREPol MCALLISTERDOB: [facility] icy Number: [id number] Repository RADHA [id number] [address] [place], [place] Date: [place], [place] [address]Acw: [phone] () 10/18/2017 Secondary SHYANNE [place] [facility] Insurance:AULTCAREPol MCALLISTERDOB: Hospital icy Number: [id number] Repository [id number] [address] Date: [place] [address] 10/14/2017 SHYANNE M Primary Tae J Jeramy [id number] Insurance:AULTCAREPol McallisterDOB[facility] icy Number: [id number] Hospital of [facility] [place] [address]Qmy: [id number] Repository Date:9590-55-00PI [address] ) [address], [place] [address]MF: 10/14/2017 Secondary NOT GIVENUNK Jeramy Insurance:SELF PAY [facility] Number: Effective Repository Date:2017-10-14 10/11/2017 SHYANNE Primary SHYANNE [facility] MCALLISTERDOB: Insurance:AULTCAREPol MCALLISTERDOB: [facility] icy Number: [id number] Repository RADHA [id number] [address] [place], [place] Date: [place], [place] [address]Qvo: [phone] () 10/11/2017 Secondary SHYANNE [place] [facility] Insurance:AULTCAREPol MCALLISTERDOB: Hospital icy Number: [id number] Repository [id number] [address] Date: [place] [address] 10/11/2017 SHYANNE Primary SHYANNE [place] [facility] MCALLISTERDOB: Insurance:AULTCAREPol MCALLISTERDOB: Hospital icy Number: [id number] Repository RADHA [id number] [address] [place], [place] Date: [place], [place] [address]Ute: [phone] () 10/11/2017 Secondary SHYNANE [place] [facility] Insurance:AULTCAREPol MCALLISTERDOB: Hospital icy Number: [id number] Repository [id number] [address] Date: [place] [address] 10/04/2017 SHYANNE Primary SHYANNE [facility] MCALLISTERDOB: Insurance:AULTCAREPol MCALLISTERDOB: [facility] icy Number: [id number] Repository RADHA [id number] [address] [place], [place] Date: [place], [place] [address]Iqz: [phone] () 10/04/2017 Secondary SHYANNE [place] [facility] Insurance:AULTCAREPol MCALLISTERDOB: Hospital icy Number: [id number] Repository [id number] [address] Date: [place] [address] 10/04/2017 SHYANNE Primary SHYANNE [place] [facility] MCALLISTERDOB: Insurance:AULTCAREPol MCALLISTERDOB: [facility] icy Number: [id number] Repository RADHA [id number] [address] [place], [place] Date: [place], [place] [address]Vrm: [phone] () 10/04/2017 Secondary SHYANNE [place] [facility] Insurance:AULTCAREPol MCALLISTERDOB: Hospital icy Number: [id number] Repository [id number] [address] Date: [place] [address] 09/27/2017 SHYANNE M Primary Tae J [facility]St[facility] [id number] Insurance:AULTCAREPol McallisterDOB: [facility], icy Number: [id number] [facility] [address]Gyn: [id number] Repository Date:5678-02-32WA [address] () [address], [place] [address]NF: 09/27/2017 Secondary NOT GIVENUNK Jeramy Insurance:SELF PAY [facility] Number: Effective Repository Date:2017-09-27 09/27/2017 SHYANNE Primary SHYANNE [place] [facility] MCALLISTERDOB: Insurance:AULTCAREPol MCALLISTERDOB: [facility] icy Number: [id number] Repository RADHA [id number] [address] [place] Date: [place], [place] [address]Lvw: [phone] () 09/27/2017 Secondary SHYANNE [place] [facility] Insurance:AULTCAREPol MCALLISTERDOB: Hospital icy Number: [id number] Repository [id number] [address] Date: [place] [address] 09/27/2017 SHYANNE Primary SHYANNE [place] [facility] MCALLISTERDOB: Insurance:AULTCAREPol MCALLISTERDOB: [facility] icy Number: [id number] Repository RADHA [id number] [address] [place], [place] Date: [place], [place] [address]Cdz: [phone] () 09/27/2017 Secondary SHYANNE [place] [facility] Insurance:AULTCAREPol MCALLISTERDOB: Hospital icy Number: [id number] Repository [id number] [address] Date: [place] [address] 09/20/2017 SHYANNE Primary SHYANNE [place] [facility] MCALLISTERDOB: Insurance:AULTCAREPol MCALLISTERDOB: [facility] icy Number: [id number] Repository RADHA [id number] [address] [place] Date: [place], [place] [address]Elu: [phone] (HP) 09/20/2017 Secondary SHYANNE [place] [facility] Insurance:AULTCAREPol MCALLISTERDOB: Hospital icy Number: [id number] Repository [id number] 5 RADHA Date: [place] [address] 09/20/2017 SHYANNE Primary SHYANNE [place] [facility] MCALLISTERDOB: Insurance:AULTCAREPol MCALLISTERDOB: [facility] icy Number: [id number] Repository RADHA [id number] [address] [place], [place] Date: [place], [place] [address]Sqv: [phone] () 09/20/2017 Secondary SHYANNE [place] [facility] Insurance:AULTCAREPol MCALLISTERDOB: Hospital icy Number: [id number] Repository [id number] 5 [address] Date: [place] [address] 09/13/2017 SHYANNE Primary SHYANNE [place] [facility] MCALLISTERDOB: Insurance:AULTCAREPol MCALLISTERDOB: [facility] icy Number: [id number] Repository RADHA [id number] [address] [place], [place] Date: [place], [place] [address]Ttm: [phone] () 09/13/2017 Secondary SHYANNE [place] [facility] Insurance:AULTCAREPol MCALLISTERDOB: Hospital icy Number: [id number] Repository [id number] 5 [address] Date: [place] [address] 09/13/2017 SHYANNE Primary SHYANNE [place] [facility] MCALLISTERDOB: Insurance:AULTCAREPol MCALLISTERDOB: [facility] icy Number: [id number] Repository RADHA [id number] [address] [place] Date: [place], [place] [address]Fnf: [phone] (HP) 09/13/2017 Secondary SHYANNE [place] [facility] Insurance:AULTCAREPol MCALLISTERDOB: Hospital icy Number: [id number] Repository [id number] 5 RAD[address] Date: [place] [address] 09/10/2017 SHYANNE M Primary Tae Deshpande [id number] Insurance:AULTCAREPol McallisterDOB: [facility] District[facility] icy Number: [id number] Hospital of [facility] [place] [address]Yai: [id number] Repository Date:1801-98-76IW BOX () [address] [place] [address]PY: 09/10/2017 Secondary NOT GIVENUNK Jeramy Insurance:SELF PAY [facility] Number: Effective Repository Date:2017-09-10 09/06/2017 SHYANNE Primary SHYANNE [place] [facility] MCALLISTERDOB: Insurance:AULTCAREPol MCALLISTERDOB: Hospital icy Number: [id number] Repository RADHA [id number] [address] [place], [place] Date: [place], [place] [address]Akb: [phone] () 09/06/2017 Secondary SHYANNE [place] [facility] Insurance:AULTCAREPol MCALLISTERDOB: Hospital icy Number: [id number] Repository [id number] [address] Date: [place] [address] 09/06/2017 SHYANNE Primary SHYANNE [place] [facility] MCALLISTERDOB: Insurance:AULTCAREPol MCALLISTERDOB: Hospital icy Number: [id number] Repository BOW [id number] [address] [place], [place] Date: [place], [place] [address]Haq: [phone] () 09/06/2017 Secondary SHYANNE [place] [facility] Insurance:AULTCAREPol MCALLISTERDOB: Hospital icy Number: [id number] Repository [id number] 5 [address] Date: [place] [address] 08/30/2017 SHYANNE Primary SHYANNE [place] [facility] MCALLISTERDOB: Insurance:AUCAREPol MCALLISTERDOB: [facility] icy Number: [id number] Repository RADHA [id number] [address] [place], [place] Date: [place], [place] [address]Djn: ([phone] (HP) 08/30/2017 Secondary SHYANNE [place] [facility] Insurance:AULTCAREPol MCALLISTERDOB: Hospital icy Number: [id number] Repository [id number] 5 [address] Date: [place] [address] 08/30/2017 SHYANNE Primary SHYANNE [place] [facility] MCALLISTERDOB: Insurance:BLOOMINGTONCAREPol [facility]: [facility] icy Number: [id number] Repository RADHA [id number] [address] [place], [place] Date: [place], [place] [address]Gia: (330) [phone] (HP) 08/30/2017 Secondary SHYANNE [place] [facility] Insurance:AULTCAREPol MCALLISTERDOB: Hospital icy Number: [id number] Repository [id number] 5 [address] Date: [place] [address] 08/23/2017 SHYANNE Primary SHYANNE [place] [facility] MCALLISTERDOB: Insurance:AULTCAREPol [facility]: [facility] icy Number: [id number] Repository RADHA [id number] [address] [place] Date: [place], [place] [address]Vcs: ([phone] (HP) 08/23/2017 Secondary SHYANNE [place] [facility] Insurance:AULTCAREPol MCALLISTERDOB: Hospital icy Number: [id number] Repository [id number] 5 [address] Date: [place] [address] 08/19/2017 SYHANNE Primary SHYANNE [facility] MCALLISTERDOB: Insurance:AULTCAREPol MCALLISTERDOB: Hospital icy Number: [id number] Repository RADHA [id number] [address] [place], [place] Date: [place], [place] [address]Phc: (330) [phone] () 08/19/2017 Secondary SHYANNE [place] [facility] Insurance:AULTCAREPol MCALLISTERDOB: Hospital icy Number: [id number] Repository [id number] [address] Date: [place] [address] 08/19/2017 SHYANNE Primary SHYANNE [facility] MCALLISTERDOB: Insurance:AULTCAREPol MCALLISTERDOB: [facility] icy Number: [id number] Repository RADHA [id number] [address] [place], [place] Date: [place], [place] [address]Smn: [phone] () 08/19/2017 Secondary SHYANNE [place] [facility] Insurance:AULTCAREPol MCALLISTERDOB: Hospital icy Number: [id number] Repository [id number] 5 [address] Date: [place] [address] 08/19/2017 SHYANNE Primary SHYANNEGAEL [facility] MCALLISTERDOB: Insurance:AULTCAREPol MCALLISTERDOB: [facility] icy Number: [id number] Repository RADHA [id number] [address] [place] Date: [place], [place] [address]Ubc: [phone] () 08/19/2017 Secondary SHYANNE [facility] Insurance:AULTCAREPol MCALLISTERDOB: Hospital icy Number: [id number] Repository [id number] [address] Date: [place] [address] 08/19/2017 SHYANNE Primary SHYANNE [facility] MCALLISTERDOB: Insurance:AULTCAREPol MCALLISTERDOB: Hospital icy Number: [id number] Repository RADHA [id number] [address] [place] Date: [place], [place] [address]Lqb: [phone] () 08/19/2017 Secondary SHYANNE [facility] Insurance:AULTCAREPol MCALLISTERDOB: Hospital icy Number: [id number] Repository [id number] 5 [address] Date: [place] [address] 08/18/2017 SHYANNE M Primary Tae Deshpande [id number] Insurance:AULTCAREPol McallisterDOB: [facility] RADHA [facility] icy Number: [id number] Hospital of [facility] [place] [address]Cji: [id number] Repository Date:8276-74-94[address] () [address], [place] [address]IT: 08/18/2017 Secondary NOT GIVENUNK Jeramy Insurance:SELF PAY [facility] Number: Effective Repository Date:2017-08-06 08/06/2017 SHYANNE M Primary Tae Deshpande [id number] Insurance:AULTCAREPol McallisterDOB: [facility] FAYE, icy Number: [id number] Hospital of Southern [place] [address]Vgu: [id number] Repository Date:7995-09-92[address] () [address], [place] [address]IY: 08/06/2017 Secondary NOT GIVENUNK [place] Insurance:SELF PAY [facility] Hospital Number: Effective Repository Date:2017-08-06 08/04/2017 SHYANNE Primary SHYANNE [facility] MCALLISTERDOB: Insurance:AULTCAREPol MCALLISTERDOB: Hospital icy Number: [id number] Repository RADHA [id number] [address] [place] Date: [place], [place] [address]Fxs: ([phone] (HP) 08/04/2017 Secondary SHYANNE [facility] Insurance:AULTCAREPol MCALLISTERDOB: Hospital icy Number: [id number] Repository [id number] 5 [address] Date: [place] [address] 07/05/2017 SHYANNE Primary SHYANNE [facility] MCALLISTERDOB: Insurance:AULTCAREPol MCALLISTERDOB: Hospital icy Number: [id number] Repository RADHA [id number] [address] [place], [place] Date: [place], [place] [address]Ukh: (330) [phone] () 07/05/2017 Secondary SHYANNE [place] Children's Insurance:AULTCAREPol MCALLISTERDOB: Hospital icy Number: [id number] Repository [id number] 5 BOW Date: [place] [address] 06/07/2017 SHYANNE M Primary Tae J [place] [id number] Insurance:AULTCAREPol McallisterD[facility] Number: [id number] Hospital of [facility] [place] [address]Pkv: [id number] Repository Date:3408-56-44PA BOX () [address] [place] [address]OK: 06/07/2017 Secondary NOT GIVENUNK [place] Insurance:SELF PAY [facility] Number: Effective Repository Date:2017-06-07 06/07/2017 SHYANNE Primary SHYANNE [facility] MCALLISTERDOB: Insurance:AULTCAREPol MCALLISTERDOB: Hospital icy Number: [id number] Repository RADHA [id number] [address] [place], [place] Date: [place], [place] [address]Oak: [phone] () 06/07/2017 Secondary SHYANNE [facility] Insurance:AULTCAREPol MCALLISTERDOB: Hospital icy Number: [id number] Repository [id number] [address] [place] [address] Date: [place] [address] 05/26/2017 SHYANNE Church Primary Tae Deshpande [id number] Insurance:AULTCAREPol McallisterDOB[facility] icy Number: [id number] Hospital of [facility] [place] [address]Mfn: [id number] Repository Date:2057-94-54KG [address] () [address], [place] [address]GS: 05/26/2017 Secondary NOT GIVENUNK Jeramy Insurance:SELF PAY [facility] Number: Effective Repository Date:2017-05-26 05/25/2017 SHYANNE Church Primary Tae Deshpande [id number] Insurance:AULTCAREPol McallisterD[facility]: [id number] Hospital of [facility] [place] [address]Gmu: [id number] Repository Date:6199-40-88VE [address] () [address], [place] [address]WS: 05/25/2017 Secondary NOT GIVENUNK Jeramy Insurance:SELF PAY [facility] Number: Effective Repository Date:2017-05-25 05/19/2017 SHYANNE Church Primary Tae Deshpande [id number] Insurance:AULTCAREPol McallisterDOB: [facility] icy Number: [id number] Hospital of [facility] [place] [address]Agw: [id number] Repository Date:9465-73-07IG [address] () [address], [place] [address]DW: 05/19/2017 Secondary NOT GIVENUNK Jeramy Insurance:SELF PAY [facility] Number: Effective Repository Date:2017-04-29 05/19/2017 SHYANNE Church Primary Tae Deshpande [id number] Insurance:AULTCAREPol McallisterDOB: [facility] icy Number: [id number] Hospital of [facility] [place] [address]Vng: [id number] Repository Date:2641-99-87SY BOX (HP) [place] [address]XN: 05/19/2017 Secondary NOT GIVENUNK [place] Insurance:SELF PAY [facility] Number: Effective Repository Date:2017-05-19 04/19/2017 SHYANNE Primary SHYANNE [facility] MCALLISTERDOB: Insurance:AULTCAREPol MCALLISTERDOB: [facility] icy Number: [id number] Repository RADHA [id number] [address] [place], [place] Date: [place], [place] [address]Auv: [phone] () 04/19/2017 Secondary SHYANNE [facility] Insurance:AULTCAREPol MCALLISTERDOB: Hospital icy Number: [id number] Repository [id number] 5 BOW Date: [place] [address] 04/19/2017 SHYANNE Primary SHYANNE [facility] MCALLISTERDOB: Insurance:AULTCAREPol MCALLISTERDOB: [facility] icy Number: [id number] Repository RADHA [id number] [address] [place], [place] Date: [place], [place] [address]Khb: [phone] (HP) 04/19/2017 Secondary SHYANNE [facility] Insurance:AULTCAREPol MCALLISTERDOB: Hospital icy Number: [id number] Repository [id number] 5 BOW Date: [place] [address] 04/02/2017 SHYANNE M Primary Tae J [place] [id number] Insurance:AULTCAREPol McallisterDOB: [facility] icy Number: [id number] [id number] Repository [address]Tga: ([phone]) Date:6963-24-29[phone] (HP) [place] [address]KQ: 04/02/2017 Secondary NOT GIVENUNK [place] Insurance:SELF PAY [facility] Number: Effective Repository Date:2017-04-02 03/17/2017 SHYANNE Church Primary Tae Deshpande [id number] Insurance:AULTCAREPol McallisterDOB: Community RADHA icy Number: [id number], [place] [id number] Repository [address]Kgn: ([phone]) Date:4993-70-74[phone] (HP) [place] [address]LL: 03/17/2017 Secondary NOT GIVENUNK Jeramy Insurance:SELF PAY [facility] Number: Effective Repository Date:2017-03-17 03/12/2017 SHYANNE Church Primary NOT GIVENUNK Jeramy [id number] Insurance:SELF PAY [facility] [address]Xwi: Number: Effective Repository Date:2017-02-19 () 03/12/2017 SHYANNE Church Primary Tae Deshpande [id number] Insurance:AULTCAREPol McallisterDOB: Community RADHA icy Number: [id number], [place] [id number] Repository [address]Uos: (330) Date:1290-71-34[phone] (HP) [address], [place] [address]XN: 03/12/2017 Secondary NOT GIVENUNK Jeramy Insurance:SELF PAY [facility] Number: Effective Repository Date:2017-03-12 02/26/2017 SHYANNE Church Primary Tae Ady Deshpande [id number] Insurance:AULTCAREPol McallisterDOB: Community RADHA icy Number: [id number], [place] [id number] Repository [address]Vsq: (330) Date:1128-55-06PI [phone] (HP) [place] [address]NN: 02/26/2017 Secondary NOT GIVENUNK Jeramy Insurance:SELF PAY [facility] Number: Effective Repository Date:2017-02-26
== END ==
PROVIDERS: Family Provider Internal Medicine; PCP Internal Medicine; Referring Provider Internal Medicine; Visit Provider Internal Medicine
DX: G56.22 Lesion of ulnar nerve, left upper limb (principal); G62.9 Polyneuropathy, unspecified
CPT/HCPCS: 36415; 72040; 80048; 95886; 95913

== ENCOUNTER → 2018-03-18 12:03 | Outpatient (CLI) | payer OTHER, SELFPAY ==
[2018-02-25 13:30] VITALS: BMI 21.8
--- NOTE | 2018-03-18 12:07 | RAD_ITS ---
STUDY: X-RAY - CERVICAL SPINE REASON FOR EXAM: Female, 42 years old. Pain with radiculopathy TECHNIQUE: Three lateral view(s) of the cervical spine were obtained. COMPARISON: February 01, 2018 FINDINGS: Normal anterior atlantoaxial articulation. Normal odontoid process. There is straightening of the normal cervical lordosis. No significant abnormalities are seen in the vertebral bodies. The discs are normal in appearance. There is no prevertebral soft tissue swelling. RAD/Cerv Spine 2 or 3 Views IMPRESSION: No significant abnormalities are seen radiographically in the cervical spine. There is straightening of the normal lordosis in neutral positioning. No significant abnormalities are seen on flexion and extension views. Electronically Signed: Jessenia Islas MD at 12:35 EST Tel Direct: [phone], Service support ,
== END ==
PROVIDERS: Family Provider Internal Medicine; PCP Internal Medicine; Referring Provider Psychiatry & Neurology Neurology; Visit Provider Psychiatry & Neurology Neurology
DX: M54.12 Radiculopathy, cervical region (principal)
CPT/HCPCS: 72040

== ENCOUNTER → 2018-05-20 15:17 | Outpatient (CLI) | payer OTHER, SELFPAY ==
[2018-04-18 08:03] VITALS: BMI 21.8
[2018-05-20 15:42] LABS: Hematocrit 40.3 % (37-47); Mean Corp Hgb Conc 32.3 g/gl (32-36); Mean Corpuscular Volume 89.8 fL (81-99); Mean Platelet Vol. 10.8 fl (6.2-12.0); Platelet Count 277 K/mm3 (150-450); RBC Distribution Width CV 13.1 % (11.6-14.6); RBC Distribution Width SD 42.5 fl (35.1-43.9); Red Blood Count 4.49 M/mm3 (4.2-5.4); White Blood Count 5.4 K/mm3 (4.4-11.0)
[2018-05-20 15:43] LABS: Scan Indicated on CBC? Y/N NO
[2018-05-20 16:12] LABS: Follicle Stimulating Hormone 4.3 mIU/mL; Glucose 73 mg/dL (74-106); Thyroid Stim Hormone (TSH) 1.04 uIU/mL (0.358-3.74)
== END ==
PROVIDERS: Family Provider Internal Medicine; PCP Internal Medicine; Visit Provider Obstetrics & Gynecology
DX: R23.2 Flushing (principal)
CPT/HCPCS: 36415; 82947; 83001; 84443; 85027

== ENCOUNTER → 2018-12-19 14:54 | Outpatient (CLI) | payer OTHER, SELFPAY ==
[2018-04-18 08:03] VITALS: BMI 21.8
== END ==
PROVIDERS: Family Provider Internal Medicine; PCP Internal Medicine; Visit Provider Obstetrics & Gynecology
DX: Z12.4 Encounter for screening for malignant neoplasm of cervix (principal)

== ENCOUNTER → 2019-04-10 14:46 | Outpatient (CLI) | payer OTHER, SELFPAY ==
[2018-04-18 08:03] VITALS: BMI 21.8
--- NOTE | 2019-04-10 14:49 | BI_ITS ---
MAMMOGRAPHY - BILATERAL SCREENING REASON FOR EXAM: Female, 43 years old. Routine annual screening examination. PERTINENT HISTORY: Aunt with breast cancer. TECHNIQUE: Digital bilateral breast tereza (3D mammographic acquisition) in the CC and MLO projections. 2-D mediolateral oblique (MLO) and craniocaudad (CC) views of both breasts were obtained. CAD: Full Field Digital Mammography with Computer Added Detection was performed. COMPARISON: None. Baseline examination. FINDINGS: Breast Composition: The breasts are extremely dense, which lowers the sensitivity of mammography. There are no dominant masses or suspicious calcifications. No other significant abnormalities are identified. BI/SCREEN MAMM (CAD) W/TEREZA BILAT IMPRESSION: Negative screening mammogram. Yearly followup mammogram recommended. (A) ASSESSMENT CATEGORY: BIRADS Category 1: Negative. A letter regarding these results will be sent to the patient by the facility within 30 days. Approximately 10% of breast cancers are not detected by mammography. A normal mammogram should not delay biopsy of a clinically suspicious abnormality. [id number] Electronically Signed: Stuart Green, at 15:36 EST , Service support ,
== END ==
LOC: OPBI 14:46
PROVIDERS: PCP Internal Medicine; Referring Provider Obstetrics & Gynecology; Visit Provider Obstetrics & Gynecology
DX: Z12.31 Encounter for screening mammogram for malignant neoplasm of breast (principal)
CPT/HCPCS: 77063; 77067

== ENCOUNTER → 2019-04-14 16:20 | Outpatient (CLI) | payer OTHER, SELFPAY ==
[2019-04-14 15:42] VITALS: BMI 20.9
--- NOTE | 2019-04-14 16:22 | RAD_ITS ---
STUDY: X-RAY RIGHT FOOT, FIFTH TOE REASON FOR EXAM: Female, 43 years old. hit right 5th toe on furniture 2 days ago, pain and bruising TECHNIQUE: 3 view(s) of the toe were obtained. COMPARISON: None. FINDINGS: Normal visualized metatarsus. Normal metatarsophalangeal (M.T.P) joint. A nondisplaced intra-articular fracture of the dorsal base of the fifth fused middle/distal phalanx is present. The soft tissue structures are unremarkable. RAD/Toe(s) Min 2 Views IMPRESSION: A nondisplaced intra-articular fracture of the dorsal base of the fifth fused middle/distal phalanx is present. Electronically Signed: Terrence Estrella MD at 0:35 EST Tel , Service support ,
== END ==
PROVIDERS: PCP Internal Medicine; Referring Provider Nurse Practitioner Family; Visit Provider Nurse Practitioner Family
DX: S92.524A Nondisplaced fracture of middle phalanx of right lesser toe(s), initial encounter for closed fracture (principal); S92.534A Nondisplaced fracture of distal phalanx of right lesser toe(s), initial encounter for closed fracture; W22.8XXA Striking against or struck by other objects, initial encounter
CPT/HCPCS: 73660

== ENCOUNTER → 2020-05-02 09:09 | Outpatient (CLI) | payer OTHER, SELFPAY ==
[2019-11-14 09:17] VITALS: BMI 21.8
[2020-05-06 20:57] LABS: HPV APTIMA, High Risk Negative (Negative)
== END ==
PROVIDERS: PCP Internal Medicine; Visit Provider Student in an Organized Health Care Education/Training Program
DX: Z12.4 Encounter for screening for malignant neoplasm of cervix (principal)
CPT/HCPCS: 87624; 88175; G0145

== ENCOUNTER → 2020-05-16 08:09 | Outpatient (CLI) | payer OTHER, SELFPAY ==
[2019-11-14 09:17] VITALS: BMI 21.8
--- NOTE | 2020-05-16 08:12 | BI_ITS ---
MAMMOGRAPHY - BILATERAL SCREENING REASON FOR EXAM: Female, 44 years old. Routine annual screening examination. PERTINENT HISTORY: Aunt with breast cancer. TECHNIQUE: Digital bilateral breast tereza (3D mammographic acquisition) in the CC and MLO projections. 2-D mediolateral oblique (MLO) and craniocaudad (CC) views of both breasts were obtained. CAD: Full Field Digital Mammography with Computer Added Detection was performed. COMPARISON: Comparison is made with prior examination dated 04/10/2019. FINDINGS: Breast Composition: The breasts are extremely dense, which lowers the sensitivity of mammography. There are no dominant masses or suspicious calcifications. No other significant abnormalities are identified. There has been no significant change since the prior study. BI/SCRN MAMM (CAD)W/TEREZA BILAT IMPRESSION: Stable bilateral screening mammogram. Yearly follow-up mammogram recommended. (A) ASSESSMENT CATEGORY: BIRADS Category 1: Negative. A letter regarding these results will be sent to the patient by the facility within 30 days. Approximately 10% of breast cancers are not detected by mammography. A normal mammogram should not delay biopsy of a clinically suspicious abnormality. [id number] Electronically Signed: Stuart Green MD at 11:30 EDT , Service support ,
== END ==
PROVIDERS: PCP Internal Medicine; Referring Provider Student in an Organized Health Care Education/Training Program; Visit Provider Student in an Organized Health Care Education/Training Program
DX: Z12.31 Encounter for screening mammogram for malignant neoplasm of breast (principal)
CPT/HCPCS: 77063; 77067

== ENCOUNTER → 2021-01-27 | Outpatient (CLI) | payer OTHER, SELFPAY | END | disposition home or self-care (01) | LOC: LABSPEC 13:16 | PROVIDERS: PCP Internal Medicine; Visit Provider Student in an Organized Health Care Education/Training Program | DX: R30.0 Dysuria (principal) | CPT/HCPCS: 87086; 87088 ==

== ENCOUNTER 2021-03-10 10:08 | Outpatient (CLI) | payer OTHER, SELFPAY ==
[2021-03-10 12:18] LABS: Absolute Lymphocyte Count 1.43 X10^3/uL (0.83-4.51); Absolute Neutrophil Count 1.8 X10^3/uL (2.0-7.7); Basophil# 0.03 X10^3/uL; Basophil% 0.8 % (0-1); Eosinophil# 0.08 X10^3/uL; Eosinophils% 2.2 % (0-5); Hematocrit 30.1 % (37-47); Hemoglobin 8.6 g/dL (12.0-15.0); Lymphocyte # 1.43 X10^3/ul (0.83-4.51); Lymphocyte % 39.5 % (19-41); Mean Corp Hgb Conc 28.6 g/dL (32-36); Mean Corpuscular Hgb 20.3 pg (27.0-32.0); Mean Corpuscular Volume 71.2 fL (81-99); Mean Platelet Vol. 10.5 fl (6.2-12.0); Monocyte% 8.3 % (0-10); NRBC Flagged by Analyzer 0 % (0-5); Neutrophil # 1.77 X10^3/uL (2.7-7.7); Neutrophil % 48.9 % (47-70); Platelet Count 373 K/mm3 (150-450); RBC Distribution Width CV 17.2 % (11.6-14.6); RBC Distribution Width SD 43.9 fl (35.1-43.9); Red Blood Count 4.23 M/mm3 (4.2-5.4); White Blood Count 3.6 K/mm3 (4.4-11.0)
[2021-03-10 12:38] LABS: ALB/GLOB Ratio 0.9 RATIO (0.9-2.4); AST(SGOT) 7 U/L (15-37); Alanine Aminotransfer ALT/SGPT 14 U/L (13-56); Albumin, Serum 3.6 g/dL (3.2-5.0); Alkaline Phosphatase 45 U/L (45-117); Anion Gap 7 (5-15); BUN 15 mg/dL (7-18); BUN/Creat Ratio 17.7 RATIO (10-20); Calcium,Total 8.6 mg/dL (8.5-10.1); Chloride 109 mmol/L (98-107); Cholesterol 161 mg/dL (200); Creatinine, Serum 0.85 mg/dL (0.55-1.02); EST Glomerular Filtration Rate 78 mL/min (>60); Est Glom Filt Rate - Afr Amer 94 mL/min (>60); Globulin 3.8 g/dL (2.2-4.2); Glucose 103 mg/dL (74-106); High Density Lipoprotein 72 mg/dL; Protein, Total 7.4 g/dL (6.4-8.2); Sodium Level 140 mmol/L (136-145); Triglycerides 54 mg/dL; Very Low Density Lipoprotein 11 mg/dL (5-40)
[2021-03-11 12:04] LABS: Ferritin 1 ng/mL (8-252); Iron 16 ug/dL (50-170); Iron Binding Capacity,Total 444 ug/dL (250-450)
== END 2021-03-10 23:59 | disposition home or self-care (01) ==
LOC: BIMLAB 10:08
PROVIDERS: PCP Internal Medicine; Referring Provider Internal Medicine; Visit Provider Internal Medicine
DX: Z00.00 Encounter for general adult medical examination without abnormal findings (principal); D50.9 Iron deficiency anemia, unspecified
CPT/HCPCS: 36415; 80053; 80061; 82728; 83540; 83550; 85025

== ENCOUNTER 2021-05-29 10:14 | Outpatient (CLI) | payer OTHER, SELFPAY ==
--- NOTE | 2021-05-29 10:15 | BI_ITS ---
MAMMOGRAPHY - BILATERAL SCREENING REASON FOR EXAM: Female, 45 years old. Routine annual screening examination. PERTINENT HISTORY: Aunt with breast cancer. TECHNIQUE: Digital bilateral breast tereza (3D mammographic acquisition) in the CC and MLO projections. 2-D mediolateral oblique (MLO) and craniocaudad (CC) views of both breasts were obtained. CAD: Full Field Digital Mammography with Computer Added Detection was performed. COMPARISON: Comparison is made with prior study 05/16/2020 and 04/10/2019. FINDINGS: Breast Composition: The breasts are extremely dense, which lowers the sensitivity of mammography. There are no dominant masses or suspicious calcifications. No other significant abnormalities are identified. There has been no significant change since the prior study. BI/SCRN MAMM (CAD)W/TEREZA BILAT IMPRESSION: Stable bilateral screening mammogram. Yearly follow-up mammogram recommended. (A) ASSESSMENT CATEGORY: BIRADS Category 1: Negative. A letter regarding these results will be sent to the patient by the facility within 30 days. Approximately 10% of breast cancers are not detected by mammography. A normal mammogram should not delay biopsy of a clinically suspicious abnormality. [id number] Electronically Signed: Stuart Green MD at 10:53 EDT ,
== END 2021-05-29 23:59 | disposition home or self-care (01) ==
PROVIDERS: PCP Internal Medicine; Visit Provider Nurse Practitioner Family
DX: Z12.31 Encounter for screening mammogram for malignant neoplasm of breast (principal)
CPT/HCPCS: 77063; 77067

== ENCOUNTER → 2021-07-17 | Outpatient (CLI) | payer OTHER, SELFPAY ==
[2021-07-23 14:10] LABS: HPV APTIMA, High Risk Negative (Negative)
== END | disposition home or self-care (01) ==
LOC: LABSPEC 12:11
PROVIDERS: PCP Internal Medicine; Visit Provider Student in an Organized Health Care Education/Training Program
DX: Z12.4 Encounter for screening for malignant neoplasm of cervix (principal)
CPT/HCPCS: 87624; 88175; G0145

== ENCOUNTER → 2021-10-02 | Outpatient (CLI) | payer OTHER, SELFPAY ==
[2021-10-02 11:16] LABS: Absolute Lymphocyte Count 1.97 X10^3/uL (0.83-4.51); Absolute Neutrophil Count 2.9 X10^3/uL (2.0-7.7); Basophil# 0.03 X10^3/uL; Basophil% 0.5 % (0-1); Eosinophils% 3.5 % (0-5); Lymphocyte # 1.97 X10^3/ul (0.83-4.51); Lymphocyte % 34.6 % (19-41); Mean Corp Hgb Conc 32.4 g/dL (32-36); Mean Corpuscular Hgb 29.2 pg (27.0-32.0); Mean Platelet Vol. 11.1 fl (6.2-12.0); Monocyte# 0.55 X10^3/uL; Monocyte% 9.6 % (0-10); NRBC Flagged by Analyzer 0 % (0-5); Neutrophil # 2.93 X10^3/uL (2.7-7.7); Neutrophil % 51.4 % (47-70); Platelet Count 288 K/mm3 (150-450); RBC Distribution Width CV 13.2 % (11.6-14.6); RBC Distribution Width SD 43.4 fl (35.1-43.9); Red Blood Count 4.11 M/mm3 (4.2-5.4); White Blood Count 5.7 K/mm3 (4.4-11.0)
== END | disposition home or self-care (01) ==
LOC: LAB 10:15
PROVIDERS: PCP Internal Medicine; Referring Provider Internal Medicine; Visit Provider Internal Medicine
DX: D50.9 Iron deficiency anemia, unspecified (principal)
CPT/HCPCS: 36415; 85025

== ENCOUNTER → 2022-02-09 | Outpatient (CLI) | payer OTHER, SELFPAY ==
--- NOTE | 2022-02-09 09:04 | US_ITS ---
STUDY: ULTRASOUND BREAST - LEFT REASON FOR EXAM: Female, 46 years old. Left retroareolar pain. TECHNIQUE: Axial and longitudinal images of the LEFT breast were performed with a high resolution ultrasound transducer. # OF IMAGES: 15 COMPARISON: Comparison is made with prior mammogram done earlier in the day. FINDINGS: LEFT Breast: The retroareolar region of the left breast was examined with ultrasound. No sonographic abnormality is seen. US/Breast Limited Unilateral IMPRESSION: No sonographic abnormality is seen. ASSESSMENT CATEGORY: BIRADS Category 1: Negative. A letter regarding these results will be sent to the patient by the facility within 30 days. Electronically Signed: Stuart Green MD at 10:01 EST ,
--- NOTE | 2022-02-09 09:04 | BI_ITS ---
MAMMOGRAPHY - UNILATERAL DIAGNOSTIC: LEFT BREAST REASON FOR EXAM: Female, 46 years old. Left breast tenderness. PERTINENT HISTORY: Mother with breast cancer. TECHNIQUE: Digital unilateral breast kelly (3D mammographic acquisition) in the CC and MLO projections. 2-D mediolateral oblique (MLO) and craniocaudad (CC) views of both breasts were obtained. CAD: Full Field Digital Mammography with Computer Added Detection was performed. COMPARISON: Comparison is made with prior study of 05/29/2021 and 05/16/2020. FINDINGS: Breast Composition: The breasts are heterogeneously dense, which may obscure small masses. There are no dominant masses or suspicious calcifications. No other significant abnormalities are identified. There has been no significant change since the prior study. BI/DIAG MAMM W/CAD, UNILAT IMPRESSION: Stable unilateral diagnostic mammogram. With the patient''s history of left breast tenderness, targeted ultrasound of the left breast is recommended. ASSESSMENT CATEGORY: BIRADS Category 0: Incomplete. Need additional imaging evaluation. A letter regarding these results will be sent to the patient by the facility within 30 days. Approximately 10% of breast cancers are not detected by mammography. A normal mammogram should not delay biopsy of a clinically suspicious abnormality. Electronically Signed: Stuart Green MD at 9:45 EST ,
== END | disposition home or self-care (01) ==
PROVIDERS: PCP Internal Medicine; Visit Provider Student in an Organized Health Care Education/Training Program
DX: N64.4 Mastodynia (principal); R92.2 Inconclusive mammogram
CPT/HCPCS: 76642; 77061; 77065; G0279

== ENCOUNTER → 2022-05-04 | Outpatient (CLI) | payer OTHER, SELFPAY ==
--- NOTE | 2022-05-04 10:25 | MRI_ITS ---
STUDY: BILATERAL BREAST MR WITHOUT AND WITH CONTRAST REASON FOR EXAM: Female, 46 years old. Mastodynia and periareolar region. TECHNIQUE: Multi-sequence multi-echo imaging of both breasts was performed with a dedicated breast coil. T1-weighted and T2-weighted images were performed before the administration of contrast. T1-weighted images were also performed after the administration of IV 11mL CLARISCAN without complications. COMPARISON: Bilateral mammograms dated May 29, 2021, left mammogram dated February 09, 2022 and left breast ultrasound dated February 09, 2022. FINDINGS: RIGHT BREAST: Scattered fibroglandular densities with moderate background enhancement. 3.5 mm in diameter lymph node in the upper outer quadrant of the right breast. No abnormal enhancing masses or areas of non-mass enhancement in the right breast. LEFT BREAST: Scattered fibroglandular densities with moderate background enhancement. No abnormal enhancing masses or areas of non-mass enhancement in the left breast. Scattered normal axillary lymph nodes with no enlarged or abnormal lymph nodes. No abnormality in the visualized regions of the chest or liver. MRI/Breast Bilateral W/O and W IMPRESSION: 3.5 mm in diameter lymph node in the upper outer quadrant of the right breast. No other abnormality. Yearly follow-up screening mammogram recommended. CATEGORY: BIRADS Category 2: Benign. A letter regarding these results will be sent to the patient by the facility within 30 days. Electronically Signed: Matty Varma, at 12:52 EST ,
== END | disposition home or self-care (01) ==
PROVIDERS: PCP Internal Medicine; Referring Provider Student in an Organized Health Care Education/Training Program; Visit Provider Student in an Organized Health Care Education/Training Program
DX: N64.4 Mastodynia (principal)
CPT/HCPCS: 77049; A9575; A4216; C8908

== ENCOUNTER → 2022-06-01 | Outpatient (CLI) | payer OTHER, SELFPAY ==
--- NOTE | 2022-06-01 10:21 | BI_ITS ---
MAMMOGRAPHY - BILATERAL SCREENING REASON FOR EXAM: Female, 46 years old. Routine annual screening examination. PERTINENT HISTORY: Aunt with breast cancer. TECHNIQUE: Digital bilateral breast tereza (3D mammographic acquisition) in the CC and MLO projections. 2-D mediolateral oblique (MLO) and craniocaudad (CC) views of both breasts were obtained. CAD: Full Field Digital Mammography with Computer Added Detection was performed. COMPARISON: Comparison is made with prior study dated May 29, 2021 and February 09, 2022. FINDINGS: Breast Composition: The breasts are extremely dense, which lowers the sensitivity of mammography. There is a 6.3 mm x 3.3 mm well-defined nodule in the upper lateral aspect of the right breast. There appears to be a fatty hilum. This may represent a small lymph node. Correlation with ultrasound is recommended. No other significant abnormalities are identified. BI/SCRN MAMM (CAD)W/TEREZA BILAT IMPRESSION: 6.3 mm x 3.3 mm well-defined nodule in the upper lateral aspect of the right breast as described. Correlation with ultrasound is recommended for further evaluation. ASSESSMENT CATEGORY: BIRADS Category 0: Incomplete. Need additional imaging evaluation. A letter regarding these results will be sent to the patient by the facility within 30 days. Approximately 10% of breast cancers are not detected by mammography. A normal mammogram should not delay biopsy of a clinically suspicious abnormality. [id number] Electronically Signed: Stuart Green MD at 13:59 EDT ,
== END | disposition home or self-care (01) ==
PROVIDERS: PCP Internal Medicine; Referring Provider Internal Medicine; Visit Provider Internal Medicine
DX: Z12.31 Encounter for screening mammogram for malignant neoplasm of breast (principal); N63.11 Unspecified lump in the right breast, upper outer quadrant
CPT/HCPCS: 77063; 77067

== ENCOUNTER → 2022-06-04 | Outpatient (CLI) | payer OTHER, SELFPAY ==
--- NOTE | 2022-06-04 08:30 | US_ITS ---
STUDY: ULTRASOUND BREAST - RIGHT REASON FOR EXAM: Female, 46 years old. Abnormal screening mammogram. TECHNIQUE: Axial and longitudinal images of the RIGHT breast were performed with a high resolution ultrasound transducer. # OF IMAGES: 8 COMPARISON: Comparison is made with prior mammogram dated June 01, 2022. FINDINGS: RIGHT Breast: The mammographic abnormality corresponds to a 7 mm x 4 mm x 3 mm benign-appearing lymph node. US/Breast Limited Unilateral IMPRESSION: No mammographic findings correspond to a 7 mm x 4 mm x 3 mm benign-appearing lymph node. ASSESSMENT CATEGORY: BIRADS Category 2: Benign. A letter regarding these results will be sent to the patient by the facility within 30 days. Electronically Signed: Stuart Green MD at 10:08 EDT ,
== END | disposition home or self-care (01) ==
LOC: OPUS 08:28
PROVIDERS: PCP Internal Medicine; Visit Provider Internal Medicine
DX: N63.11 Unspecified lump in the right breast, upper outer quadrant (principal)
CPT/HCPCS: 76642

== ENCOUNTER → 2022-07-20 | Outpatient (CLI) | payer OTHER, SELFPAY ==
[2022-07-25 14:10] LABS: HPV APTIMA, High Risk Negative (Negative)
== END | disposition home or self-care (01) ==
LOC: LABSPEC 10:22
PROVIDERS: PCP Internal Medicine; Visit Provider Student in an Organized Health Care Education/Training Program
DX: Z12.4 Encounter for screening for malignant neoplasm of cervix (principal)
CPT/HCPCS: 87624; 88175; G0145

== ENCOUNTER → 2023-04-22 | Outpatient (CLI) | payer BC, SELFPAY ==
--- NOTE | 2023-04-22 10:08 | ECHOD_ITS ---
Reason For Study: PALPITATIONS Procedure This was a 2D Doppler, Color Flow transthoracic echocardiogram. Exam performed in department. Left Ventricle Normal LV size. Left ventricular systolic function is normal. The estimated ejection fraction is 65 %. No regional wall motion abnormalities noted. Right Ventricle Normal RV size. Normal systolic function. Atria Normal left atrium. Normal right atrium. Mitral Valve Normal mitral valve. Tricuspid Valve Normal tricuspid valve. Mild (1+) tricuspid valve insufficiency. Pulmonary artery systolic pressure is 34 mmHg. Aortic Valve Bicuspid aortic valve. Peak aortic valve gradient 18 mmHg. Mean aortic valve gradient 11 mmHg. Pulmonic Valve Normal pulmonic valve. Great Vessels Normal aortic root. The pulmonary artery is normal size. Normal inferior vena cava. Pericardium/Pleural No pericardial effusion. MMode/2D Measurements & Calculations LVIDd: 4.9 cm IVSd: 0.78 cm LVOT diam: 1.9 cm LVIDs: 3.1 cm LVPWd: 0.95 cm LVOT area: 2.9 cm2 RVDd: 2.9 cm FS: 35.8 % Ao root diam: 3.2 cm LAV(MOD-bp): 30.7 ml LVAd ap4: 25.1 cm2 LAV(MOD-bp) Indexed: 19.1 ml/m2 LVLd ap4: 7.8 cm LAV(MOD-sp2): 28.5 ml EDV(MOD-sp4): 68.9 ml LAV(MOD-sp4): 30.4 ml EDV(sp4-el): 68.5 ml LVAs ap4: 11.5 cm2 LVLs ap4: 5.9 cm ESV(MOD-sp4): 20.2 ml ESV(sp4-el): 19.2 ml EF(MOD-sp4): 70.6 % EF(sp4-el): 72.0 % LVAd ap2: 20.1 cm2 SV(MOD-sp4): 48.6 ml SV(MOD-sp2): 35.7 ml LVLd ap2: 7.6 cm EDV(MOD-sp2): 49.2 ml EDV(sp2-el): 45.4 ml LVAs ap2: 9.0 cm2 LVLs ap2: 5.5 cm ESV(MOD-sp2): 13.5 ml ESV(sp2-el): 12.5 ml EF(MOD-sp2): 72.5 % SV(sp4-el): 49.4 ml LA dimension(2D): 2.9 cm LA A4 area: 12.2 cm2 RA A4 area: 13.0 cm2 Time Measurements MV dec time: 0.27 sec Doppler Measurements & Calculations MV E max ivan: 81.1 cm/sec Lat Peak E' Ivan: 17.8 cm/sec Med Peak E' Ivan: 15.3 cm/sec MV A max ivan: 63.3 cm/sec E/E' lat: 4.6 E/E' med: 5.3 MV E/A: 1.3 Ao V2 max: 213.4 cm/sec LV V1 max: 129.7 cm/sec MV dec slope: 301.1 cm/sec2 Ao max P.3 mmHg LV V1 max P.7 mmHg Ao V2 mean: 158.7 cm/sec LV V1 mean P.2 mmHg Ao mean P.9 mmHg LV V1 mean: 99.2 cm/sec Ao V2 VTI: 49.2 cm LV V1 VTI: 29.5 cm AV (velocity ratio): 0.60 NIKKI(I,D): 1.7 cm2 NIKKI(V,D): 1.7 cm2 SV(LVOT): 84.2 ml PA V2 max: 122.9 cm/sec TR max ivan: 267.2 cm/sec PA V2 mean: 94.0 cm/sec TR max P.6 mmHg ECHO/Echo Complete Interpretation Summary Normal LV size. Left ventricular systolic function is normal. The estimated ejection fraction is 65 %. Bicuspid aortic valve. Mean aortic valve gradient 11 mmHg. Ordering Physician: Eliza Edwards Referring Physician: Caleb Haq Performed By: Yoli Hdz, RDCS, RVT
== END | disposition home or self-care (01) ==
PROVIDERS: PCP Internal Medicine; Referring Provider Physician Assistant Medical; Visit Provider Physician Assistant Medical
DX: R00.2 Palpitations (principal); Q23.1 Congenital insufficiency of aortic valve
CPT/HCPCS: 93306

== ENCOUNTER → 2023-04-29 | Outpatient (CLI) | payer BC, SELFPAY ==
[2023-04-29 16:51] LABS: Absolute Lymphocyte Count 2.27 X10^3/uL (0.83-4.51); Absolute Neutrophil Count 3.4 X10^3/uL (2.0-7.7); Basophil# 0.05 X10^3/uL; Basophil% 0.8 % (0-1); Eosinophil# 0.19 X10^3/uL; Hematocrit 40.7 % (37-47); Hemoglobin 12.9 g/dL (12.0-15.0); Lymphocyte # 2.27 X10^3/ul (0.83-4.51); Lymphocyte % 35.2 % (19-41); Mean Corp Hgb Conc 31.7 g/dL (32-36); Mean Corpuscular Hgb 28.4 pg (27.0-32.0); Mean Corpuscular Volume 89.6 fL (81-99); Monocyte% 7.8 % (0-10); NRBC Flagged by Analyzer 0 % (0-5); Neutrophil # 3.41 X10^3/uL (2.7-7.7); Neutrophil % 52.9 % (47-70); Platelet Count 267 K/mm3 (150-450); RBC Distribution Width CV 13.3 % (11.6-14.6); RBC Distribution Width SD 43.5 fl (35.1-43.9); Red Blood Count 4.54 M/mm3 (4.2-5.4); White Blood Count 6.4 K/mm3 (4.4-11.0)
[2023-04-29 17:02] LABS: ALB/GLOB Ratio 1.2 RATIO (0.9-2.4); AST(SGOT) 10 U/L (15-37); Alanine Aminotransfer ALT/SGPT 14 U/L (13-56); Alkaline Phosphatase 51 U/L (45-117); Anion Gap 4 (5-15); BUN 13 mg/dL (7-18); BUN/Creat Ratio 14.5 RATIO (10-20); Calcium,Total 9.1 mg/dL (8.5-10.1); Chloride 108 mmol/L (98-107); Cholesterol 185 mg/dL (200); EST Glomerular Filtration Rate 72 mL/min (>60); Est Glom Filt Rate - Afr Amer 87 mL/min (>60); Globulin 3.3 g/dL (2.2-4.2); Glucose 100 mg/dL (74-106); High Density Lipoprotein 81 mg/dL; Protein, Total 7.3 g/dL (6.4-8.2); Sodium Level 139 mmol/L (136-145); Triglycerides 84 mg/dL; Very Low Density Lipoprotein 17 mg/dL (5-40)
--- OUTSIDE RECORDS SUMMARY | 2023-04-29 19:11 | XMS RPT_ITS | CCD ---
Author Name Unknown Address [address] [place] [address] Organization [facility] Care Team Providers Care Experimental Psychologist Name Role Phone Patricio Fink Unavailable Elan Carl PA-C Unavailable SHELL VALVERDE Unavailable Unavailable BENEKOS, MARIA L Unavailable Unavailable BONEZZI, BELKIS Unavailable Unavailable SHELL VALVERDE Unavailable Unavailable SHELL VALVERDE Unavailable Unavailable BONEZZI, BELKIS Unavailable Unavailable CHRIS COELHO Unavailable Unavai lable DONELLS, MARIA L Unavailable Unavailable BONEZZI, BELKIS Unavailable Unavailable LULU, YUN T Unavailable Unavailable BENEKOS, MARIA L Unavailable Unavailable BONEZZI, BELKIS Unavailable Unavailable LULU, YUN T Unavailable Unavailable BENEKOS, MARIA L Unavailable Unavailable BONEZZI, BELKIS Unavailable Unavailable LULUVERENICE Unavailable Unavailable BENEKOS, MARIA L Unavailable Unavailable BONEZZI, BELKIS Unavailable Unavailable LULU, YUN T Unavailable Unavailable BENEKOS, MARIA L Unavailable Unavailable BONEZZI, BELKIS Unavailable Unavailable LULU, YUN T Unavailable Unavailable BENEKOS, MARIA L Unavailable Unavailable BONEZZI, BELKIS Unavailable Unavailable LULU, YUN T Unavailable Unavailable BENEKOS, MARIA L Unavailable Unavailable BONEZZI, BELKIS Unavailable Unavailable BACSOHAIL, SHELL J Unavailable Unavailable BENEKOS, MARIA L Unavailable Unavailable BONEZZI, BELKIS Unavailable Unavailable BACSOHAIL SHELL J Unavailable Unavailable BENEKOS, MARIA L Unavailable Unavailable BONEZZI, BELKIS Unavailable Unavailable WILLIAM VALVERDEHEN J Unavailable Unavailable BENEKOS, MARIA L Unavailable Unavailable BONEZZI, BELKIS Unavailable Unavailable EHRENBERG BUCHNER, CHRIS Unavailable Unavai lable BENEKOS, MARIA L Unavailable Unavailable BONEZZI, BELKIS Unavailable Unavailable EHRENBERG BUCHNER, CHRIS Unavailable Unavai lable BENEKOS, MARIA L Unavailable Unavailable BONEZZI, BELKIS Unavailable Unavailable BACAK, SHELL J Unavailable Unavailable BENEKOS, MARIA L Unavailable Unavailable BONEZZI, BELKIS Unavailable Unavailable BACAK, SHELL J Unavailable Unavailable BENEKOS, MARIA L Unavailable Unavailable BONEZZI, BELKIS Unavailable Unavailable LULU, YUN T Unavailable Unavailable BENEKOS, MARIA L Unavailable Unavailable BONEZZI, BELKIS Unavailable Unavailable LULU, YUN T Unavailable Unavailable BENEKOS, MARIA L Unavailable Unavailable BONEZZI, BELKIS Unavailable Unavailable LULU, YUN T Unavailable Unavailable BENEKOS, MARIA L Unavailable Unavailable BONEZZI, BELKIS Unavailable Unavailable LULU, YUN T Unavailable Unavailable BENEKOS, MARIA L Unavailable Unavailable BONEZZI, BELKIS Unavailable Unavailable WOMACK, SUSHIL Unavailable Unavailable BENEKOS, MARIA L Unavailable Unavailable BONEZZI, BELKIS Unavailable Unavailable WOMACK, SUSHIL Unavailable Unavailable BENEKOS, MARIA L Unavailable Unavailable BONEZZI, BELKIS Unavailable Unavailable LULU, YUN T Unavailable Unavailable BENEKOS, MARIA L Unavailable Unavailable BONEZZI, BELKIS Unavailable Unavailable LULU, YUN T Unavailable Unavailable BENEKOS, MARIA L Unavailable Unavailable BONEZZI, BELKIS Unavailable Unavailable EHRENBERG BUCHNER, CHRIS Unavailable Unavai lable BENEKOS, MARIA L Unavailable Unavailable BONEZZI, BELKIS Unavailable Unavailable BACAK, SHELL J Unavailable Unavailable BENEKOS, MARIA L Unavailable Unavailable BONEZZI, BELKIS Unavailable Unavailable BACAK, SHELL J Unavailable Unavailable BENEKOS, MARIA L Unavailable Unavailable BONEZZI, BELKIS Unavailable Unavailable WOMACK, SUSHIL Unavailable Unavailable BENEKOS, MARIA L Unavailable Unavailable BONEZZI, BELKIS Unavailable Unavailable UTE RUTLEDGE JR. Unavailable Unavailable CALEB BAKER Unavailable Unavailable Chrissie JUDD, Maria N Unavailable Caleb Baker MD Primary Care Provider Allergies Allergy Classification Reported Allergen(s) Allergy Type Date of Onset Reaction(s) Facility (5 sources) ibuprofen drug allergy 05-24-201 7 [facility] Work Phone: (5 sources) SEASONAL; Translations: [SEASONAL] allergy to substance 7 [facility] Work Phone: (1 source) Adhesive Tape; Translations: [TAPE ALLERGY] Propensity to adverse reactions (disorder) 4 [facility] Repository (2 sources) ibuprofen; Translations: [IBUPROFEN] Drug Allergy 5 [facility] Repository (2 sources) Seasonal allergy; Translations: [SEASONAL ALLERGIES] Propensity to adverse reactions (disorder) 7 [facility] Repository (1 source) Environmental allergies [Other] Propensity to adverse reactions 7 [facility] Medications Completed/Discontinued Medications Medication Drug Class(es) Dates Sig (Normalized) Sig (Original) amoxicillin 500 mg oral capsule (6 sources) Penicillin-class Antibacterial Start: 07-30-2016 End: 01-31-2017 AMOXICILLIN 500 MG CAPS 2 capsules twice daily AMOXICILLIN [id number] Elan Carl PA-C amoxicillin 875 mg / clavulanate 125 mg oral tablet (2 sources) Penicillin-class Antibacterial Start: 01-31-2017 End: 02-10-2017 AUGMENTIN 875-125 MG TABS 1 pill every 12 hours AMOXICILLIN-POT CLAVULANATE [id number] Elan Carl PA-C fexofenadine (6 sources) Histamine-1 Receptor Antagonist Start: 07-29-2016 MADHU ALLERGY 180 MG TABS as directed FEXOFENADINE HCL [id number] Maria Dickens LPN Problems Active Problems Problem Classification Problem Date Documented Da te Episodic/Chronic Genitourinary symptoms and ill-defined conditions (2 sources) Incomplete emptying of bladder; Translations: [Retention of urine, unspecified] Onset: 08-19-2021 Episodic Other connective tissue disease (2 sources) Muscle weakness; Translations: [Muscle weakness (generalized)] Onset: 08-19-2021 Episodic Other upper respiratory disease (1 source) Allergic rhinitis; Translations: [Allergic rhinitis, unspecified] Onset: 11-24-2004 11-24-2004 Chronic Prolapse of female genital organs (2 sources) Anterior vaginal wall prolapse; Translations: [Cystocele, unspecified] Onset: 08-19-2021 Chronic Past or Other Problems Problem Classification Problem Date Documented Da te Episodic/Chronic Other upper respiratory infections (7 sources) Acute pharyngitis; Translations: [Acute maxillary sinusitis] Onset: 07-29-2016 07-29-2016 Episodic Results Test Name Value Interpretation Reference Range Facil ity Vital Signs Date Time Vital Sign Value Performing Clinician Vanessa colin 08-19-2021 07:00-0400 Diastolic blood pressure 78 mm[Hg] Effie Carbone PT Work Phone: [facility] 08-19-2021 07:00-0400 Systolic blood pressure 118 mm[Hg] Effie Carbone PT Work Phone: [facility] 01-31-2017 08:25-0500 BMI (Body Mass Index) 20.57 kg/m2 Elan Carl PA-C [facility] Work Phone: 01-31-2017 08:25-0500 Body Temperature 98.2 [degF] Elan Carl PA-C [facility] Work Phone: 01-31-2017 08:25-0500 BP Diastolic 68 mm[Hg] Elan Carl PA-C [facility] Work Phone: 01-31-2017 08:25-0500 BP Systolic 114 mm[Hg] Elan Carl PA-C [facility] Work Phone: 01-31-2017 08:25-0500 Height 165.1 cm Elan Carl PA-C [facility] Work Phone: 01-31-2017 08:25-0500 Pulse (Heart Rate) 90 /min Elan Carl PA-C [facility] Work Phone: 01-31-2017 08:25-0500 Respiratory Rate 14 /min Elan Carl PA-C [facility] Work Phone: 01-31-2017 08:25-0500 Weight 56.06 kg Elan Carl PA-C [facility] Work Phone: 07-29-2016 10:38-0400 BMI (Body Mass Index) 20.13 kg/m2 Maria Dickens LPN [facility] Work Phone: 07-29-2016 10:38-0400 Body Temperature 98.2 [degF] Maria Dickens LPN [facility] Work Phone: 07-29-2016 10:38-0400 Body weight 54.89 kg Maria Dickens LPN [facility] Work Phone: 07-29-2016 10:38-0400 BP Diastolic 72 mm[Hg] Maria Dickens LPN [facility] Work Phone: 07-29-2016 10:38-0400 BP Systolic 102 mm[Hg] Maria Dickens LPN [facility] Work Phone: 07-29-2016 10:38-0400 Height 165.1 cm Maria Dickens LPN [facility] Work Phone: 07-29-2016 10:38-0400 Pulse (Heart Rate) 76 /min Maria Dickens LPN [facility] Work Phone: 07-29-2016 10:38-0400 Pulse Oximetry 76 % Maria Dickens LPN [facility] Work Phone: 07-29-2016 10:38-0400 Respiratory Rate 16 /min Maria Dickens LPN [facility] Work Phone: 07-29-2016 10:38-0400 Weight 54.89 kg Patricio FRAZIER [facility] Work Phone: Encounters Encounter Date Encounter Type Care Provider Facility Start: 08-19-2021 End: 08-19-2021 ambulatory Effie [facility]bone [facility] Procedures Date Procedure Procedure Detail Performing Clinician Start: 07-29-2016 End: 07-29-2016 Iaadiadoo streptococcus group a Patricio FRAZIER Work Phone: Start: 07-29-2016 End: 07-29-2016 Documentation of current medications Maria Dickens LPN Start: 07-29-2016 End: 07-29-2016 Iaadiadoo streptococcus group a Patricio Mccrary PA Work Phone: Start: 07-29-2016 End: 07-29-2016 Rapid strep test Patricio FRAZIER Work Phone: Plan of Treatment Date Care Activity Detail Author Start: 2017 Mammography MAMMOGRAM [facility] Start: 01-31-2017 End: 01-31-2017 Appointment Appointment [facility] Work Phone: Start: 07-29-2016 End: 07-29-2016 Streptococcus.beta-hemol ytic [Presence] in Throat by Organism specific culture *Culture, R/O Strep A Swab [facility] Work Phone: Start: 07-29-2016 End: 07-29-2016 Appointment Appointment [facility] Work Phone: Start: 07-29-2016 End: 07-29-2016 Streptococcus.beta-hemol ytic [Presence] in Throat by Organism specific culture *Culture, R/O Strep A Swab [facility] Work Phone: Start: 12-24-2007 HPV TESTING HPV TESTING [facility] Start: 1998 PAP TESTING PAP TESTING [facility] Start: 1996 Urine microalbumin profile DTAP,TDAP,TD (1 - Tdap) [facility] Start: 12-24-1995 HEPATITIS C SCREENING HEPATITIS C SC DIPESH [facility] Start: 12-24-1995 HIV SCREENING HIV SCREENING [facility] Start: 1989 Adult depression screening assessment DEPRESSION SCREENING [facility] Patient Education PHARYNGITIS [facility] Work Phone: Immunizations Immunization Date Immunization Notes Care Provider Dorothy esquivel 02-17-2021 influenza, injectabl e, quadrivalent, contains preservative Effie Raf PT Work Phone: [facility] Work Phone: 11-10-2019 influenza, injectabl e, quadrivalent, contains preservative Effie Carbone PT Work Phone: [facility] 01-27-2019 influenza, injectabl e, quadrivalent, preservative free Effie Carbone PT Work Phone: [facility] 01-01-2018 influenza, injectabl e, quadrivalent, preservative free Effie Carbone PT Work Phone: [facility] 04-14-2017 influenza, injectabl e, quadrivalent, contains preservative Effie Carbone PT Work Phone: [facility] 12-06-2015 influenza, injectabl e, quadrivalent, contains preservative Effie Carbone PT Work Phone: [facility] Work Phone: 01-11-2015 influenza, injectabl e, quadrivalent, preservative free Effie Carbone PT Work Phone: [facility] Work Phone: Payers Date Payer Category Payer Unknown [employer] [id number] 2018-Present [phone] [address] [place] [address] PPO [id number] 2016 Unknown [id number] 1977 Unknown [id number] Social History Date Type Detail [facility] Start: 05-18-2006 Alcohol intake Current drinke r of alcohol (finding) [facility] Start: 1975 Sex Assigned At Not on file [facility] Progress note 08-19-2021 Note Date & Type Note Facility 08-19-2021 Note HNO ID: [id number] Author: Effie Carbone, PT Service: ? Author Type: Physical Therapist Type: Progress Notes Filed: 10/03/2021 9:03 AM Note Text: 10/03/2021 [facility] PHYSICAL THERAPY DISCONTINUANCE OF CARE Plan of Care Period: Start of Care Date: 08/19/21 Last Visit Date: 08/19/2021 Therapy Program: Patient did not return for follow up care as planned. Please refer to last visit note for interventions provided for this episode of care. Assessment: Unable to formally assess goal achievement. Reason for Discontinuation of Care: Patient has not returned to therapy or scheduled additional follow-up appointments. Effie Carbone, PT Episode Visit Count: 1 Therapist That Will Oversee The Plan Of Care: Effie Carbone Start of Care Date: 08/19/21 Onset Date: 11/02/17 Patient Identified by Name and Date of : Yes REHABILITATION AND SPORTS THERAPY PHYSICAL THERAPY EVALUATION PLAN OF CARE: Assessment: Shanthi Rocha presents with chief complaint of incomplete bladder emptying that interferes with bladder function . She presents with impairments in decreased pelvic floor and core strength; impaired bladder function. PROMIS? (Patient-Reported Outcomes Measurement Information System) scores were reviewed and all domains identified as within normal limits. Prognosis for therapy is Good due to: current objective clinical presentation . She will benefit from skilled therapy services to meet the goals established for this plan of care as noted below. Goals for Episode of Care: created on 08/19/21 through 10/18/21 [place] in home exercise program. Patient will demonstrate increase in core strength to at least 4/5 during manual muscle testing in order to improve function for prior functional tasks. Incontinence: Patient to urinate every 2-4 hours Increase strength of pelvic floor to Power: at least 3/5 Patient demonstrates ability to perform diaphragmatic breathing / relaxation Patient reports increased ability to fully empty bladder without straining Patient Goals: improve bladder function Planned Interventions, Frequency, and Duration: Current Frequency: 1x/week Duration: 4 weeks (reassess at 4 weeks and progress as indicated) Total Number of Visits Planned: 4 Planned Treatment Interventions: Therapeutic exercise (57563);Manual therapy (55519);Self-shelter management (07028);Patient/Family/Caregiver Education PLAN FOR NEXT VISIT: biofeedback, bladder diary Patient demonstrates good understanding of plan of care and treatment. The above goals and plan of care were discussed and agreed upon by patient/family. SUBJECTIVE: Pt reports delivering last child 3.5 years ago, has experienced feeling of incomplete bladder emptying since then. Pt reports emptying bladder again immediately after washing hands after urinating. 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 Recreation / Current Exercise: group fitness classes, running Intake Information: Prescription present Previous Treatment: None Falls Interview: No positive findings with falls interview Aquatic Screen: No Pain: Pain Pain Level: 0 Post Treatment Pain Post Treatment Pain Level: 0 PROMIS Scales Higher is Better 08/18/2021 Phys Func - Score 62 (within normal limits) Phys Func - Percentile 88 % Social Roles - Score 59 (within normal limits) Social Role - Percentile 82 % GH Physical - Score 57.7 (Very Good) GH Physical - Percentile 78 % GH Mental - Score 45.8 (Good) GH Mental - Percentile 34 % Self-Eff Symptom - Score 56 (Average) Self-Eff Symptom - Percentile 73 % T-scores: mean of general population = 50. 5 points is clinically meaningfully difference Percentiles provide an indication of how the patient's score ranks in relation to the general population. Higher percentile rankings indicate better function/quality of life. 50th percentile is the average of the general population and indicates half of respondents had a worse score. Lower is Better 08/18/2021 Fatigue - Score 42 (within normal limits) Fatigue - Percentile 79 % T-scores: mean of general population = 50. 5 points is clinically meaningfully difference Percentiles provide an indication of how the patient's score ranks in relation to the general population. Higher percentile rankings indicate better function/quality of life. 50th percentile is the average of the general population and neal (more content not included)... [facility] History of Present illness Narrative 08-19-2021 Effie Carbone, PT - 08/19/2021 7:47 AM EDT Note Date & Type Note Facility 08-19-2021 History of Presen t illness Narrative Episode Visit Count: 1 Therapist That Will Oversee The Plan Of Care: Effie Carbone Start of Care Date: 08/19/21 Onset Date: 11/02/17 Patient Identified by Name and Date of : Yes REHABILITATION AND SPORTS THERAPY PHYSICAL THERAPY EVALUATION PLAN OF CARE: Assessment: Shanthi Rocha presents with chief complaint of incomplete bladder emptying that interferes with bladder function . She presents with impairments in decreased pelvic floor and core strength; impaired bladder function. PROMIS (Patient-Reported Outcomes Measurement Information System) scores were reviewed and all domains identified as within normal limits. Prognosis for therapy is Good due to: current objective clinical presentation . She will benefit from skilled therapy services to meet the goals established for this plan of care as noted below. Goals for Episode of Care: created on 08/19/21 through 10/18/21 [place] in home exercise program. Patient will demonstrate increase in core strength to at least 4/5 during manual muscle testing in order to improve function for prior functional tasks. Incontinence: Patient to urinate every 2-4 hours Increase strength of pelvic floor to Power: at least 3/5 Patient demonstrates ability to perform diaphragmatic breathing / relaxation Patient reports increased ability to fully empty bladder without straining Patient Goals: improve bladder function Planned Interventions, Frequency, and Duration: Current Frequency: 1x/week Duration: 4 weeks (reassess at 4 weeks and progress as indicated) Total Number of Visits Planned: 4 Planned Treatment Interventions: Therapeutic exercise (19252);Manual therapy (67518);Self-shelter management (15317);Patient/Family/Caregiver Education PLAN FOR NEXT VISIT: biofeedback, bladder diary Patient demonstrates good understanding of plan of care and treatment. The above goals and plan of care were discussed and agreed upon by patient/family. SUBJECTIVE: Pt reports delivering last child 3.5 years ago, has experienced feeling of incomplete bladder emptying since then. Pt reports emptying bladder again immediately after washing hands after urinating. 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 Recreation / Current Exercise: group fitness classes, running Intake Information: Prescription present Previous Treatment: None Falls Interview: No positive findings with falls interview Aquatic Screen: No Pain: Pain Pain Level: 0 Post Treatment Pain Post Treatment Pain Level: 0 PROMIS Scales Higher is Better 08/18/2021 Phys Func - Score 62 (within normal limits) Phys Func - Percentile 88 % Social Roles - Score 59 (within normal limits) Social Role - Percentile 82 % GH Physical - Score 57.7 (Very Good) GH Physical - Percentile 78 % GH Mental - Score 45.8 (Good) GH Mental - Percentile 34 % Self-Eff Symptom - Score 56 (Average) Self-Eff Symptom - Percentile 73 % T-scores: mean of general population = 50. 5 points is clinically meaningfully difference Percentiles provide an indication of how the patient's score ranks in relation to the general population. Higher percentile rankings indicate better function/quality of life. 50th percentile is the average of the general population and indicates half of respondents had a worse score. Lower is Better 08/18/2021 Fatigue - Score 42 (within normal limits) Fatigue - Percentile 79 % T-scores: mean of general population = 50. 5 points is clinically meaningfully difference Percentiles provide an indication of how the patient's score ranks in relation to the general population. Higher percentile rankings indicate better function/quality of life. 50th percentile is the average of the general population and indicates half of respondents had a worse score. OBJECTIVE MEASURES WITH LEVEL OF FUNCTION: Pelvic Floor Pregnancies: 5 Births: 3 (twins for one delivery) : 2 Vaginal Delivery: Standard (1) Pain with penetration: Not sexually active (not sexually active since 03/2021 when diagnosed with cancer) Urinary/Bowel History : Urinary History;Bowel History Difficulty starting stream: No Incomplete emptying: Yes Stress Incontinence: No Urgency: No Nocturia (times per night): 0 Daytime Frequency (hours): 2 (urinates 2x in a row each time) Fluid Intake: Coffee;Other beverage;Water;Alcohol (8 oz measurements) Water : 2 Coffee: 4 Alcohol : 1 Other beverage : 3 (sparkling water) Difficulty evacuating / Excessive Straining: No Incomplete emptying: No Bowel Movement Frequency: 1x/day Fecal incontinence: No Pelvic Floor Muscle Assessment Consent for pelvic assessment/testing and treatment: Patient was educated regarding pelvic floor physical therapy assessment/treatment which may include pelvic floor and girdle muscle assessment externally or internally (vaginal or rectal approach).;Patient verbalized consent for the above treatment approaches today. Patient understands they have control of the treatment and an opportunity to stop treatment at any time. Pelvic Floor Muscle Assessment: PERFECT;Muscle Dynamics Power: 2 Endurance: 7 Fast Reps: 5 Contracton Pressure: Weak squeeze, felt as flick at various points along finger surface, not all the way around Duration of Contraction: >3 seconds Recruitment of pelvic floor muscles: Coordinated Range of Motion: Normal Ability to Lengthen pelvic floor: Yes Diaphragmatic Breathing : Fair Pelvic Floor Manual Assessment Pelvic Floor Tenderness/Hyperactivity: Tested Vaginally in Tested Vaginally in : Supine/hooklying (No tightness/tenderness noted.) LE AROM R LE AROM: WFL L LE AROM: WFL LE Flexibility Flexibility: Hamstring Flexibility;Hip Adductor;Hip Internal Rotation Flexibility;Hip External Rotation Flexibility R Hamstring Flexibility: WNL L Hamstring Flexibility: WNL R Adductor Flexibility: WNL L Adductor Flexibility: WNL R Hip Internal Rotation Flexibility: WNL L Hip Internal Rotation Flexibility: WNL R Hip External Rotation Flexibility: WNL L Hip External Rotation Flexibility: WNL LE Strength Trunk Strength: Lower Abdominals: 3/5 R LE Strength: 5/5 L LE Strength: 5/5 Education: Education Learning Preferences: Demonstration;Explanation;Performance ;Printed Materials Barriers: None Learning/educational needs: Home exercise program;Plan of Care Education Provided: Yes, see treatment interventions for education provided Education Provided To: Patient Education Mode/Type: Demonstration;Explanation/Discussion; Literature/Printed Materials;Performance Response to Education/Teach Back: States/Identifies;Return Demonstration TREATMENT: PT Treatment Interventions: Therapeutic Exercise;Self-Long-Term Management Evaluation Therapeutic Exercise: 1: *diaphragmatic breathing 2: *quick kegals, 3x10 3: *isometric hip adduction, 2x10 Skilled Intervention: Patient was educated in proper exercise technique and purpose for exercises. Reviewed and educated patient on additions/changes for home exercise program as above (*). Skilled judgment was provided in selection of appropriate interventions. Provided written instruction for home exercise program to facilitate proper performance and compliance. Self-Long-Term Management: 1: Reviewed pelvic floor anatomy and function with 3D pelvic model 2: Reviewed typical vs dysfunctional bladder health 3: Reviewed bladder irritants, importance of increasing water intake 4: Reviewed toileting techniques to fully empty bladder 5: Reviewed strategies to improve urinary frequency Skilled Intervention: Skilled judgment in the selection of proper modification for activity of daily living/home management based on clinical presentation, deficits, and needs. Educated the patient regarding recommendations and provided written instruction to facilitate compliance. 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 Expl 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 Advance Directive(s) 07/03/2021 8:56 PM Additional Source Comments INFORMATION SOURCE (unrecogn ized section and content) DATE CREATED AUTHOR AUTHOR'S ORGANIZ ATION 03/06/2018 [facility] ([place]) DATE CREATED AUTHOR AUTHOR'S ORGANIZ ATION 10/07/2021 [facility] Source Comments (unrecognize d section and content) In the event this informatio n is protected by the Federal Confidentiality of Alcohol and Drug Abuse Patient Records regulations: The Federal rules restrict any use of the information to criminally investigate or prosecute any alcohol or drug abuse patient.[facility] Reason for Visit (unrecogniz ed section and content) Specialty Diagnoses / Procedures Referred By Contac t Referred To Contact Physical Therapy / PHYSICAL THERAPY Diagnoses prolapse Procedures NEW RS PT PELVIC PAIN/INCONT Donita Spears [phone] [address] Effie Carbone PT [address] [place] [address] Referral ID Status Reason Start Date Expiration Date V isits Requested Visits Authorized [id number] Authorized 03/08/2021 03/07/2022 99 99 Care Teams (unrecognized sec tion and content) FOR RECORDS PERTAINING TO PATIENTS WHO ARE OR HAVE BEEN ENROLLED IN A CHEMICAL DEPENDENCY/SUBSTANCEABUSE PROGRAM, SOME INFORMATION MAY BE OMITTED. This clinical summary was aggregated from multiple sources. Caution should be exercised in using it in the provision of clinical care. This summary normalizes information from multiple sources, and as a consequence, information in this document may materially change the coding, format and clinical context of patient data. In addition, data may be omitted in some cases. CLINICAL DECISIONS SHOULD BE BASED ON THE PRIMARY CLINICAL RECORDS. [email or web address] [facility]. provides no warranty or guarantee of the accuracy or completeness of information in this document.
[2023-04-30 11:19] LABS: Ferritin 5 ng/mL (8-252); Iron 39 ug/dL (50-170); Iron Binding Capacity,Total 395 ug/dL (250-450)
== END | disposition home or self-care (01) ==
LOC: BIMLAB 15:34
PROVIDERS: PCP Internal Medicine; Visit Provider Internal Medicine
DX: Z00.00 Encounter for general adult medical examination without abnormal findings (principal); D50.9 Iron deficiency anemia, unspecified
CPT/HCPCS: 36415; 80053; 80061; 82728; 83540; 83550; 85025

== ENCOUNTER 2023-06-14 09:36 | Outpatient (CLI) | payer BC, SELFPAY ==
[2023-06-14 09:51] VITALS: BP 149/84; PULSE 87; RESP 16; TEMP 36.6; O2SAT 100
[2023-06-14] MEDS: 0.9% NaCl Peripheral Flush Adult/Peds IV (09:59)
[2023-06-14] MEDS: 0.9% NaCl IVPB Med Flush (250 mL) 15 ML IV (10:05)
[2023-06-14] MEDS: Iron Sucrose Complex 300 MG in 0.9% Normal Saline (250mL Bag) 250 ML 177 MG IV (10:27)
[2023-06-14 12:45] VITALS: BP 121/91; PULSE 76; RESP 16; TEMP 36.8; O2SAT 100
== END 2023-06-14 09:37 | disposition home or self-care (01) ==
LOC: MEDOUTP 09:37
PROVIDERS: PCP Internal Medicine; Referring Provider Internal Medicine; Visit Provider Internal Medicine
DX: D50.9 Iron deficiency anemia, unspecified (principal)
CPT/HCPCS: 96365; 96366; J1756; J7050; A4216

== ENCOUNTER → 2023-06-14 | Outpatient (CLI) | payer BC, SELFPAY ==
--- NOTE | 2023-06-14 09:19 | BI_ITS ---
MAMMOGRAPHY - BILATERAL SCREENING REASON FOR EXAM: Female, 47 years old. Routine annual screening examination. PERTINENT HISTORY: Aunt with breast cancer. TECHNIQUE: Digital bilateral breast tereza (3D mammographic acquisition) in the CC and MLO projections. 2-D mediolateral oblique (MLO) and craniocaudad (CC) views of both breasts were obtained. CAD: Full Field Digital Mammography with Computer Added Detection was performed. COMPARISON: Comparison is made with prior study dated June 01, 2022 and February 09, 2022. FINDINGS: Breast Composition: The breasts are extremely dense, which lowers the sensitivity of mammography. There are no dominant masses or suspicious calcifications. Stable 6.3 mm x 3 mm well-defined nodule in the upper lateral anterior aspect of the right breast. This most likely represents a small lymph node. This was seen on prior sonogram dated June 04, 2022. No other significant abnormalities are identified. There has been no significant change since the prior study. BI/SCRN MAMM (CAD)W/TEREZA BILAT IMPRESSION: Stable bilateral screening mammogram. Yearly follow-up mammogram recommended. (A) ASSESSMENT CATEGORY: BIRADS Category 2: Benign. A letter regarding these results will be sent to the patient by the facility within 30 days. Approximately 10% of breast cancers are not detected by mammography. A normal mammogram should not delay biopsy of a clinically suspicious abnormality. [id number] Electronically Signed: Stuart Green MD at 10:19 EDT ,
== END | disposition home or self-care (01) ==
PROVIDERS: PCP Internal Medicine; Referring Provider Internal Medicine; Visit Provider Internal Medicine
DX: Z12.31 Encounter for screening mammogram for malignant neoplasm of breast (principal)
CPT/HCPCS: 77063; 77067

== ENCOUNTER 2023-06-21 09:10 | Outpatient (CLI) | payer BC, SELFPAY ==
[2023-06-21] MEDS: 0.9% NaCl Peripheral Flush Adult/Peds IV (09:41)
[2023-06-21] MEDS: Iron Sucrose Complex 300 MG in 0.9% Normal Saline (250mL Bag) 250 ML 177 MG IV (09:42)
[2023-06-21] MEDS: 0.9% NaCl IVPB Med Flush (250 mL) 15 ML IV (09:42)
[2023-06-21 09:43] VITALS: BP 112/74; PULSE 74; RESP 16; TEMP 36.4; O2SAT 100
[2023-06-21 11:30] VITALS: BP 118/72; PULSE 72; TEMP 36.3
== END 2023-06-21 09:11 | disposition home or self-care (01) ==
LOC: MEDOUTP 09:10
PROVIDERS: PCP Internal Medicine; Referring Provider Internal Medicine; Visit Provider Internal Medicine
DX: D50.9 Iron deficiency anemia, unspecified (principal)
CPT/HCPCS: 96365; 96366; J1756; J7050; A4216

== ENCOUNTER 2023-06-28 09:08 | Outpatient (CLI) | payer BC, SELFPAY ==
[2023-06-28] MEDS: Iron Sucrose Complex 300 MG in 0.9% Normal Saline (250mL Bag) 250 ML 177 MG IV (09:26)
[2023-06-28] MEDS: 0.9% NaCl Peripheral Flush Adult/Peds IV (09:27)
[2023-06-28] MEDS: 0.9% NaCl IVPB Med Flush (250 mL) 15 ML IV (09:27)
[2023-06-28 09:28] VITALS: BP 117/71; PULSE 66; RESP 16; TEMP 35.8; O2SAT 100
[2023-06-28 11:15] VITALS: BP 136/75; PULSE 76; RESP 16; TEMP 36.2; O2SAT 100
== END 2023-06-28 09:09 | disposition home or self-care (01) ==
LOC: MEDOUTP 09:08
PROVIDERS: PCP Internal Medicine; Referring Provider Internal Medicine; Visit Provider Internal Medicine
DX: D50.9 Iron deficiency anemia, unspecified (principal)
CPT/HCPCS: 96365; 96366; J1756; J7050; A4216

== ENCOUNTER → 2023-07-22 | Outpatient (CLI) | payer BC, SELFPAY ==
[2023-07-22 12:29] LABS: Absolute Lymphocyte Count 0.56 X10^3/uL (0.83-4.51); Absolute Neutrophil Count 2.7 X10^3/uL (2.0-7.7); Basophil# 0.03 X10^3/uL; Basophil% 0.8 % (0-1); Eosinophil# 0.04 X10^3/uL; Hematocrit 38.8 % (37-47); Hemoglobin 12.4 g/dL (12.0-15.0); Lymphocyte # 0.56 X10^3/ul (0.83-4.51); Lymphocyte % 14.5 % (19-41); Mean Corpuscular Volume 90.9 fL (81-99); Mean Platelet Vol. 11.3 fl (6.2-12.0); Monocyte# 0.51 X10^3/uL; Monocyte% 13.2 % (0-10); NRBC Flagged by Analyzer 0 % (0-5); Neutrophil % 70.2 % (47-70); POSITIVE DIFFERENTIAL YES; Platelet Count 197 K/mm3 (150-450); RBC Distribution Width CV 14.1 % (11.6-14.6); RBC Distribution Width SD 46.9 fl (35.1-43.9); Red Blood Count 4.27 M/mm3 (4.2-5.4); White Blood Count 3.9 K/mm3 (4.4-11.0)
[2023-07-22 13:10] LABS: Ferritin 50 ng/mL (8-252); Iron 34 ug/dL (50-170); Iron Binding Capacity,Total 297 ug/dL (250-450)
== END | disposition home or self-care (01) ==
LOC: MTLAB 09:26
PROVIDERS: PCP Internal Medicine; Referring Provider Internal Medicine; Visit Provider Internal Medicine
DX: D50.9 Iron deficiency anemia, unspecified (principal)
CPT/HCPCS: 36415; 82728; 83540; 83550; 85025

== ENCOUNTER 2023-08-09 08:17 | Day surgery (SDC) | payer BC, SELFPAY ==
--- NOTE | 2023-08-09 08:29 | H&P.OPEN ---
[facility] - General General Date of Service: 08/09/23 HPI Narrative SHANTHI BRODY, is a 47 F who presents for screening colonoscopy. Patient never had previous colonoscopy. Patient denies any family history of colon cancer. Patient has bowel movements daily or every other day denies any blood. Patient denies any current abdominal pain/nausea/vomiting/reflux. [facility] Medical History (Updated 08/03/23 @ 14:14 by Reyna Mcginnis) Wears contact lenses Wears glasses Alcohol use Anemia Non-smoker History of echocardiogram Cardiology follow-up encounter History of irregular heartbeat Colon cancer screening Preventative health care Iron deficiency anemia Numbness and tingling in both hands History of gestational diabetes Seasonal allergies MTHFR gene mutation HELLP syndrome Bicuspid aortic valve Home Medications ?Medication ?Instructions ?Recorded ?Last Taken ?Type ferrous sulfate 325 mg (65 mg 325 mg PO DAILY #90 tabs 10/27/21 Unknown Rx iron) tablet loratadine 10 mg tablet (Allergy 10 mg PO DAILY 08/03/23 Unknown History Relief (loratadine)) Allergy/AdvReac Type Severity Reaction Status Date / Time adhesive tape Allergy Rash Verified 08/03/23 14:07 ibuprofen Allergy Rash Verified 08/03/23 14:07 Family History (Updated 06/11/23 @ 09:03 by Kamala Pichardo) Mother Hypertension Diabetes Pancreatic cancer Father Hypertension Diabetes Multiple sclerosis Anxiety Aunt Breast cancer Anxiety Grandfather Alcoholism Surgical History (Updated 08/03/23 @ 14:14 by Reyna Mcginnis) Hx of wisdom tooth extraction History of Social History (Updated 06/11/23 @ 09:03 by Kamala Pichardo) household members: children current occupational status: employed Smoking Status: Never smoker alcohol intake: never substance use type: does not use what type of physical activity do you participate in: running and aerobics frequency: 3-4 times per week Past Medical/Surgical History Planned Operation Planned Operative Procedure(s): COLONOSCOPY-OA Previous Hospitalizations/Surgeries HX Hospitalizations: No HX of Surgeries: 2 C-sections 2014, 2017 Any Problems With Anesthesia: No You/Your Family Experience Fever (Hyperthermia) With Anes: No Cholinesterase deficiency: No Cardiovascular Hx Hypertension: No Respiratory Hx Chronic Obstructive Pulmonary Disease (COPD): No Hx Asthma: No Hx Emphysema: No Hx Sleep Apnea: No Hx Respiratory Tract Infection/Cold (presently): No Do You Snore Loudly (louder than talking or can be heard): No Do You Often Feel Tired/ Fatigued/ Sleepy Dring Daytime?: No Has Anyone Observed You Stop Breathing During Sleep?: No Result (for STOP score): Negative Hx Smoking: No Smoking Status: Never smoker Neurological Hx Seizures: No Does patient have nerve stimulator: No Genitourinary Hx Renal Disease: No Endocrine Hx Diabetes: No Miscellaneous Hx Cancer: No Allergies adhesive tape Allergy (Verified 08/03/23 14:07) Rash ibuprofen Allergy (Verified 08/03/23 14:07) Rash Discharge Is Pt Admitted From a [facility], or a [facility]: No After D/C, Where Do you Plan to Go: Return Home Physical Exam Const alert, oriented x3 and no apparent distress HEENT normocephalic and head/scalp atraumatic Resp normal respiratory effort Cardio regular rate GI soft to palpation and non-tender; Negative for non-distended Palpation: Negative for guarding Extremity no clubbing, cyanosis or edema Skin no rashes or lesions noted Neuro CN's II-XII intact bilaterally Psych mental status grossly normal Assessment & Plan Assessment/Plan (1) Colon cancer screening: Surgery Risks - Colonoscopy I discussed with the patient the risks of the procedure: Yes Risks Include but are not Limited To: Risks include but are not limited to: Bleeding, perforation requiring further surgery, inability to complete colonoscopy requiring barium enema.
[2023-08-09 08:47] VITALS: BP 112/74; PULSE 70; RESP 16; TEMP 37; O2SAT 100; BMI 20.9
[2023-08-09] MEDS: Lactated Ringers 1,000 ML 15 ML IV (08:50)
[2023-08-09 08:51] LABS: Internal QC Validated? YES +Cl - CLEAR BKGD
[2023-08-09 08:52] LABS: Pregnancy, Urine Negative Negative
--- NOTE | 2023-08-09 09:45 | COLBX_PTH ---
PATIENT: SHANTHI BRODY LOC: EN U#:[id number] AGE/SX: 47/F ROOM: RE08/09/[address]: Dr. Sera Mota MD : 1975 BED: DIS: 08/09/2023 SPEC #: [id number] RECD: 08/09/23 10:19 STATUS: RICCARDO REGissell #: [id number] SANDRA: 08/09/23 09:[address]: Sera Mota DEPT: SURGICAL PATHOLOGY RECD BY: Viviana Moura ENTERED: 08/09/23 11:37 SP TYPE: COLON BX OTHR DR: Dr. Caleb Haq MD Tissues: Sigmoid colon biopsy Procedures: Surgery Specimen Level IV HEADER OPERATION: Colonoscopy with polyp biopsy PRE-OP DIAGNOSIS: Screening TISSUE SUBMITTED: Sigmoid polyp MICROSCOPIC DIAGNOSIS Sigmoid polyp, biopsy: Hyperplastic polyp. ELIZABETH/ 08/10/2023 MICROSCOPIC DESCRIPTION Slides are reviewed. GROSS DESCRIPTION Received in fixative is one container labeled with the patient's name and designated Sigmoid polyp. The specimen consists of one irregular fragment of light albright soft tissue that measures 0.2 x 0.2 x 0.1 cm. The specimen is totally submitted in one cassette. ELIZABETH/ 08/09/2023 TC:1 CPT:66983
--- NOTE | 2023-08-09 09:53 | OP.CCLET_ITS ---
08/09/2023 Caleb Haq MD [address] [place] [address] [place] [address] Re : Colonoscopy procedure for Shyanne Plunkett Dear Dr. Haq This procedure was performed on Wednesday, August 09, 2023. My impressions and recommendations are as follows: Impressions : - Hemorrhoids found on perianal exam. - Non-bleeding internal hemorrhoids. - One less than 5 mm polyp in the sigmoid colon, removed with a cold biopsy forceps. Resected and retrieved. - The examination was otherwise normal. Recommendations : - Discharge patient to home. - Resume previous diet. - Continue present medications. - Await pathology results. - Repeat colonoscopy in 5-10 years for surveillance based on pathology results. My findings are described in the full procedure note, which is enclosed. If I can be of further assistance, please feel free to contact me at Doctor phone number(s): , Work: . Sincerely, MD Sera Steele MD 08/09/2023 9:53:07 AM This report has been signed electronically.
--- NOTE | 2023-08-09 09:53 | OP.COLON_ITS ---
Patient Name: Shyanne Plunkett Procedure Date: 08/09/2023 9:13 AM Date of : 1975 Age: 47 Procedure: Colonoscopy Indications: Screening for colorectal malignant neoplasm Providers: Sera Mota MD Referring MD: Sera Mota MD Medicines: Monitored Anesthesia Care Patient Profile: This is a 47 year old female. Last Colonoscopy: none. The patient's first colonoscopy is today. Complications: No immediate complications. Procedure: Pre-Anesthesia Assessment: - Prior to the procedure, a History and Physical was performed, and patient medications and allergies were reviewed. The patient's tolerance of previous anesthesia was also reviewed. The risks and benefits of the procedure and the sedation options and risks were discussed with the patient. All questions were answered, and informed consent was obtained. Prior Anticoagulants: The patient has taken no anticoagulant or antiplatelet agents. ASA Grade Assessment: Per anesthesia. After reviewing the risks and benefits, the patient was deemed in satisfactory condition to undergo the procedure. After I obtained informed consent, the scope was passed under direct vision. Throughout the procedure, the patient's blood pressure, pulse, and oxygen saturations were monitored continuously. The pediatric colonoscope was introduced through the anus and advanced to the cecum, identified by the appendiceal orifice, ileocecal valve and palpation. The patient tolerated the procedure well. The quality of the bowel preparation was good. The colonoscopy was somewhat difficult due to a tortuous colon. Successful completion of the procedure was aided by applying abdominal pressure. Scope In: 9:29:07 AM Scope Withdrawal Time 0 hours 7 minutes 54 seconds Scope Out: 9:48:55 AM Total Procedure Duration Time 0 hours 19 minutes 48 seconds Findings: Hemorrhoids were found on perianal exam. Non-bleeding internal hemorrhoids were found. The hemorrhoids were Grade I (internal hemorrhoids that do not prolapse). A less than 5 mm polyp was found in the sigmoid colon. The polyp was sessile. The polyp was removed with a cold biopsy forceps. Resection and retrieval were complete. The exam was otherwise without abnormality. Impression: - Hemorrhoids found on perianal exam. - Non-bleeding internal hemorrhoids. - One less than 5 mm polyp in the sigmoid colon, removed with a cold biopsy forceps. Resected and retrieved. - The examination was otherwise normal. Recommendation: - Discharge patient to home. - Resume previous diet. - Continue present medications. - Await pathology results. - Repeat colonoscopy in 5-10 years for surveillance based on pathology results. Procedure Code(s): --- Professional --- 67999, PT, Colonoscopy, flexible; with biopsy, single or multiple Diagnosis Code(s): --- Professional --- Z12.11, Encounter for screening for malignant neoplasm of colon K64.0, First degree hemorrhoids D12.5, Benign neoplasm of sigmoid colon CPT copyright 2021 [employer]. All rights reserved. The codes documented in this report are preliminary and upon health information coder review may be revised to meet current compliance requirements. MD Sera Steele MD 08/09/2023 9:53:07 AM This report has been signed electronically. Number of Addenda: 0 Note Initiated On: 08/09/2023 9:13 AM
[2023-08-09 09:55] VITALS: BP 112/74; BP 80/42; PULSE 62; RESP 16; TEMP 36.2; O2SAT 99
[2023-08-09 10:00] VITALS: BP 112/74; BP 71/43; PULSE 57; RESP 16; O2SAT 100
[2023-08-09 10:05] VITALS: BP 106/74; BP 112/74; PULSE 73; RESP 16; O2SAT 100
[2023-08-09 10:07] VITALS: BP 104/79; BP 112/74; PULSE 74; RESP 16; TEMP 36.1; O2SAT 100
[2023-08-09 10:23] VITALS: BP 112/74
== END 2023-08-09 10:40 | disposition home or self-care (01) ==
LOC: EN 08:17 → AC 08:18
PROVIDERS: Anesthesiology; PCP Internal Medicine; Referring Provider Surgery; Visit Provider Surgery
PROC: 0DJD8ZZ Inspection of Lower Intestinal Tract, Via Natural or Artificial Opening Endoscopic (ICD-10-PCS; CPT 45378; principal; 2023-08-09 09:40)
DX: Z12.11 Encounter for screening for malignant neoplasm of colon (principal); K63.5 Polyp of colon; D50.9 Iron deficiency anemia, unspecified; K64.0 First degree hemorrhoids; Z79.899 Other long term (current) drug therapy; K64.4 Residual hemorrhoidal skin tags
CPT/HCPCS: 45380; 81025; 88305; J7120; J2405

== ENCOUNTER 2023-11-18 08:45 | Day surgery (SDC) | payer BC, SELFPAY ==
--- NOTE | 2023-11-01 14:55 | PCM.HP.BLA ---
History and Physical Date of Admission: 11/19/23 HPI: The patient is a 47 year old female presenting for pre-operative visit. She is scheduled for hysteroscopy D&C with polyp resection and IUD insertion, for heavy menses, endometrial polyp and adenomyosis on 11/19/23. Procedure discussed along with risks, benefits and complications. Other alternatives discussed for management. Consent form signed? Yes. 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 ferrous sulfate (IRON ORAL) Take by mouth. ? tranexamic acid (LYSTEDA) 650 mg tablet Take 2 tablets by mouth three times a day as needed (heavy menstrual bleeding). for 5 days a month 30 tablet 5 ? FEXOFENADINE 180 MG TAB take one tablet daily as needed 30 0 ? mometasone furoate(NASONEX 50 MCG/ACTUATION SPRAY) 2 sprays to each nostril once daily one bottle 0 No current facility-administered medications for this visit. ALLERGIES: Adhesive, Ibuprofen, and Seasonal Allergies PERSONAL HISTORY: SOCIAL HISTORY Social History Tobacco Use ? Smoking status: Never ? Smokeless tobacco: Never Vaping Use ? Vaping status: Never Used Substance Use Topics ? Alcohol use: Yes Comment: rare social ? Drug use: Never Comment: caffeine products FAMILY HISTORY: FAMILY HISTORY FAMILY HISTORY Problem Relation Age of Onset ? Pancreatic Cancer Mother ? Diabetes Mother ? Hypertension Father ? Multiple Sclerosis Father ? Breast Cancer Maternal Grandmother ? Breast Cancer Maternal Aunt REVIEW OF SYMPTOMS: GENERAL: denies fevers or chills ENDOCRINOLOGY: has not been on steroids Cardiology : denies palpitations or chest pain Respiratory: denies SOB or cough Hematology: denies history of prolonged bleeding or easy bruising or VTE Allergy: Denies history of personal or family history of allergy to anesthesia PHYSICAL EXAMINATION: VITALS: Blood pressure 102/66, pulse 83, height 164.5 cm (5' 4.75), weight 56.7 kg (125 lb), last menstrual period 10/11/2023, SpO2 99%. GENERAL: The patient is well nourished, well hydrated in no acute distress. , The patient is oriented to time, place, and person. NECK: Supple. No lynphadenopathy, normal thyroid, no thyromegaly. LUNGS: Clear to auscultation bilaterally. no wheezes, rhonchi or rales HEART: Regular rate and rhythm, Normal heart sounds, and No murmurs or gallops Pap and high-risk HPV are negative on 08/25/2023 Pelvic ultrasound: September 30, 2023 Impression The contour of the uterus and the endometrial cavity were evaluated with 3-D imaging. 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 The uterus is anteverted and measures 102 mm x 57 mm x 82 mm. The endometrial thickness is 10.5 mm. There is an echogenic area within the anterior left endometrium that is suspicious for a polyp that measures 8 mm x 6 mm x 4 mm. The right ovary measures 42 mm x 26 mm x 26 mm. The left ovary measures 15 mm x 18 mm x 15 mm. There is free fluid visualized. Technique: Three dimensional imaging was created on a dedicated stand-alone 3D workstation with images created and archived, and supervised and reviewed by the interpreting physician utilizing images from a US Scan performed on 09/30/23. Recommendations Consider SIS for further evaluation of endometrial cavity if clinically indicated. Ultrasound findings suggestive for adenomyosis. Clinical correlation is recommended. History Medical History Surgery: sectionx 2 IMPRESSION: Abnormal uterine bleeding, endometrial polyp and adenomyosis PLAN: The risks/benefits/alternatives and personal involved for the planned hysteroscopy D&C with polyp resection and possible IUD insertion were reviewed with the patient. Her questions were answered to her satisfaction and she desires to proceed. Consent was signed. I reviewed with her postop instructions and expectations. I have reviewed and updated past medical and surgical history, medications and allergies Assessment & Plan Assessment/Plan (1) Adenomyosis: (2) Endometrial polyp: (3) Menorrhagia:
[2023-11-18] VITALS (7 sets, daily range): BP systolic 87–104; BP diastolic 58–70; PULSE 67–72; RESP 16; TEMP 36.4; O2SAT 96–100; BMI 21.0
[2023-11-18] MEDS: Lactated Ringers 1,000 ML 15 ML IV (09:15)
[2023-11-18 09:37] LABS: Internal QC Validated? YES +Cl - CLEAR BKGD; Pregnancy, Urine Negative Negative
[2023-11-18] MEDS: Acetaminophen 500 MG Tablet 1000 MG PO (09:40)
--- NOTE | 2023-11-18 09:47 | PRE.ANES_ITS ---
ASA Classification* ASA Classification ASA Classification: 2 Assessment & Plan Anesthesia* Anesthesia Assessment Anesthesia Assessment: Discussed sedation and/or anesthesia options, risks, benefits, and alternatives with patient/parents/legal guardian/POA. Questions invited. The patient/parents/legal guardian/POA seems to understand and agrees to proceed with anesthesia plan. Reviewed the physical assessment, medical history, allergy history and patient home medications list prior to surgery/procedure/anesthetic and documented any changes. Performed airway and anesthesia risk assessments. Anesthesia Type Anesthesia Type: MAC History Source History Obtained from:: Patient and Chart Anesthesia Focused Assessment* Temperature: 97.6 F Pulse Rate: 68 Blood Pressure: 104/69 Respiratory Rate: 16 Pulse Ox: 96 Oxygen Delivery Method: Room Air Airway Assessment Mouth opens: >3 cm Mallampati Score: II Teeth Condition: Intact Neck Range of motion (ROM): Full ROM Focused Labs Anesthesia Preop lab: CBC WBC 3.9 K/mm3 (4.4-11.0) L 07/22/23 09:27 RBC 4.27 M/mm3 (4.2-5.4) 07/22/23 09:27 Hgb 12.4 g/dL (12.0-15.0) 07/22/23 09:27 Hct 38.8 % (37-47) 07/22/23 09:27 Plt Count 197 K/mm3 (150-450) 07/22/23 09:27 CHEMISTRY Potassium 4.0 mmol/L (3.5-5.1) 04/29/23 15:34 Sodium 139 mmol/L (136-145) 04/29/23 15:34 Magnesium 6.4 mg/dL (1.8-2.4) H* 03/30/14 06:30 BUN 13 mg/dL (7-18) 04/29/23 15:34 Creatinine 0.90 mg/dL (0.55-1.02) 04/29/23 15:34 Glucose 100 mg/dL (74-106) 04/29/23 15:34 POC Glucose 105 mg/dL (70-110) 11/03/17 06:12 TSH 1.04 uIU/mL (0.358-3.74) 05/20/18 15:19 COAG PT 12.6 SECONDS (11.7-14.9) 11/02/17 06:05 HCG, Quant 07460 mIU/mL (<9 non-preg) H 03/12/17 10:59 Urine Test Negative Negative 11/18/23 09:25 Pre-Assessment Diagnosis/Proposed Procedure Planned Operative Procedure(s): HYSTEROSCOPY D&C WITH INSERTION OF IUD Anesthesia History Anesthesia History - review manager: Anesthesia History - review manager Hx Hospitalization No 11/04/23 08:56 Any Problems With Anesthesia No 11/04/23 08:56 Cholinesterase deficiency No 11/04/23 08:56 You/Your Family Experience No 11/04/23 08:56 fever (hyperthermia) with Relationship Recent Exposure to Contagious No 11/18/23 09:33 Disease Does patient have nerve No 11/04/23 08:56 stimulator Patient instructed to have device shut off --Does patient have Pacemaker No 11/18/23 09:33 or ICD? When Was Last Pacemaker Check QUESTION #4 FULL TEXT: You/Your Family Experience fever (hyperthermia) with Anesthesia Last Oral Intake Last Oral intake: Last Oral Intake NPO since 04:45 11/18/23 09:33 Meds taken in AM with sips of No 11/18/23 09:33 water? Meds patient instructed to take am of surgery PONV PONV - review manager: PONV - review manager Female Yes 11/04/23 08:56 HX of Motion Sickness Yes 11/04/23 08:56 HX of N/V After Surgery No 11/04/23 08:56 Non-Smoker Yes 11/04/23 08:56 Duration of Surgery greater No 11/04/23 08:56 than 60 minutes Number of Risk Factors 3 11/04/23 08:56 PONV Score Moderate Risk 11/04/23 08:56 Height & Weight Height & Weight: Anesthesia: Height & Weight Height 5 ft 5 in 11/18/23 09:33 Weight: 57.4 kg 11/18/23 09:33 Body Mass Index (BMI) 21.0 11/18/23 09:33 Respiratory Assessment Respiratory Assessment - review manager: Respiratory Tract Infection Hx - review manager Hx Respiratory Tract Infection No 11/04/23 08:56 STOP Sleep Apnea STOP Sleep Apnea - review manager: STOP Sleep Apnea - review manager Hx Hypertension No 11/04/23 08:56 Hx Sleep Apnea No 11/04/23 08:56 CPAP BIPAP Do you snore loudly (louder No 11/04/23 08:56 than talking or can be heard Do you often feel tired/ No 11/04/23 08:56 fatigued/ sleepy during daytime? Has anyone observed you stop No 11/04/23 08:56 breathing during sleep? STOP Results Negative 11/04/23 08:56 QUESTION #5 FULL TEXT : Do you snore loudly (louder than talking or can be heard through closed doors)? 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 Specify any problems Hx of Preganancy in last 3 No 11/04/23 08:56 Months Nurse Filling Out Transfusion DSCHRIBER 11/04/23 08:56 & Questions: Date: 11/04/23 11/04/23 08:56 Time: 08:57 11/04/23 08:56 Patient unable to answer at this time (ie. confused, unrespo /Reproduction History /Reproductive History - review manager: /Reproductive Hx- review manager Hx Now No 11/04/23 08:56 Gestational Age (in weeks): EDC: Hx Hx Para Hx Section SAB No 11/04/23 08:56 Active Medications Active Medications: Current Medications Generic Name Dose Route Start Last Admin Trade Name Freq PRN Reason Stop Dose Admin Lactated Ringer's 1,000 mls @ 15 mls/hr 11/18/23 09:15 11/18/23 09:15 IV 15 mls/hr .Q48H RODRÍGUEZ Administration PFSH Medical History (Updated 11/04/23 @ 08:59 by Taylor Muse) Wears contact lenses Wears glasses Alcohol use Anemia Non-smoker History of echocardiogram Cardiology follow-up encounter History of irregular heartbeat Colon cancer screening Preventative health care Iron deficiency anemia Numbness and tingling in both hands History of gestational diabetes Seasonal allergies MTHFR gene mutation HELLP syndrome Bicuspid aortic valve Home Medications ?Medication ?Instructions ?Recorded ?Last Taken ?Type ferrous sulfate 325 mg (65 mg 325 mg PO DAILY #90 tabs 10/27/21 11/17/23 Rx iron) tablet loratadine 10 mg tablet (Allergy 10 mg PO DAILY 08/03/23 11/17/23 History Relief (loratadine)) fluticasone propionate 50 2 spray intranasal DAILY 11/04/23 11/17/23 History mcg/actuation nasal spray,suspension Allergy/AdvReac Type Severity Reaction Status Date / Time adhesive tape Allergy Rash Verified 11/18/23 09:30 ibuprofen Allergy Rash Verified 11/18/23 09:30 Family History (Updated 06/11/23 @ 09:03 by Kamala Pichardo) Mother Hypertension Diabetes Pancreatic cancer Father Hypertension Diabetes Multiple sclerosis Anxiety Aunt Breast cancer Anxiety Grandfather Alcoholism Surgical History (Updated 11/04/23 @ 08:59 by Taylor Muse) Hx of colonoscopy with polypectomy Hx of wisdom tooth extraction History of Social History (Updated 06/11/23 @ 09:03 by Kamala Pichardo) household members: children current occupational status: employed Smoking Status: Never smoker alcohol intake: never substance use type: does not use what type of physical activity do you participate in: running and aerobics frequency: 3-4 times per week Review of Systems (Anesthesia) ROS Narrative System reviewed and no additional complaints, except as documented.
--- NOTE | 2023-11-18 10:10 | EMB_PTH ---
PATIENT: SHANTHI BRODY LOC: [facility] [place] U#:[id number] AGE/SX: 47/F ROOM: RE11/18/[address]: Dr. Jessie Neri MD : 1975 BED: DIS: 11/18/2023 SPEC #: [id number] RECD: 11/18/23 11:49 STATUS: RICCARDO REGissell #: [id number] SANDRA: 11/18/23 10:[address]: Jessie Neri DEPT: SURGICAL PATHOLOGY RECD BY: Viviana Moura ENTERED: 11/18/23 13:58 SP TYPE: ENDOM BX/C SEGUNDO DR: Dr. Caleb Haq MD Tissues: Endometrium, NOS Procedures: Surgery Specimen Level IV HEADER OPERATION: Hysterectomy, D&C, polyp resection PRE-OP DIAGNOSIS: Adenomyosis, endometrial polyp, menorrhagia TISSUE SUBMITTED: Endometrial curettings MICROSCOPIC DIAGNOSIS Endometrium, curettings: Polypoid fragments of mildly disordered proliferative endometrium with benign cystic change and chronic endometritis. Rare fragments of benign endocervix. SAHIL/ 11/19/2023 MICROSCOPIC DESCRIPTION Slides are reviewed. GROSS DESCRIPTION Received in fixative is one container labeled with the patient's name and designated Endometrial curettings. The specimen consists of multiple irregular fragments of pink soft tissue that in aggregate measure 6.0 x 3.0 x 0.2 cm. The specimen is totally submitted in three cassettes. 11/18/2023 TC:3 CPT:20844
--- NOTE | 2023-11-18 10:24 | PCM.DC ---
Discharge Instructions Diet Discharge Diet: No restrictions Activity May resume sexual activity in: 2 weeks Lifting Restrictions: none Dressing / Incision Call your doctor if your incision/area has: Sudden Increased Bleeding and Foul Smelling Discharge Call your doctor if you observe: Fever of 101 or Higher and Using more than 1 pad per hour (for 2 hrs in a row) Follow Up Care Please Follow Up With: Jessie Neri MD When: You do not need a postop appointment. I will contact you with pathology next week. Call [phone] or send a [employer] message to make an appointment or with any concerns. Test Results: Test results from this visit will be discussed in further detail at your follow-up appointment, if applicable. Discharge Plan Admission Attending Provider: Jessie Neri Primary Care Provider: Caleb Haq Instructions Print Language: Hebrew Discharge Orders/Prescriptions Prescriptions: No Action loratadine [Allergy Relief (loratadine)] 10 mg tablet 10 mg PO DAILY fluticasone propionate 50 mcg/actuation spray,suspension 2 spray INTRANASAL DAILY ferrous sulfate 325 mg (65 mg iron) tablet 325 mg PO DAILY Qty: 90 3RF Referrals / Follow Up: Caleb Haq MD [Primary Care Provider] - Disposition Disposition (needs filled in before D/C Order can be placed): Home, Self Care
--- NOTE | 2023-11-18 10:25 | OP.PCM_ITS ---
Problems Associated Problem List Diagnoses (1) Menorrhagia: (2) Endometrial polyp: (3) Adenomyosis: Report of Operation Date of Procedure: 11/18/23 Pre-Operative Diagnosis: adenomyosis, menorrhagia, endometrial polyp Post-Operative Diagnosis: adenomyosis, menorrhagia Surgery/Procedure Performed:: Hysteroscopy D&C with Liletta IUD insertion Description of Surgical Findings:: lush endometrium, mildly arcuate uterus, no septum, normal cervix and vagina Surgeon: Jessie Neri car wash attendant automatic: Glenn kee Type of Anesthesia: MAC/Supplemental/Local Anesthesiologist: Baltazar Dumas Special Medications: none Specimen's removed: endometrial curettings Drains: none Estimated Blood Loss (mL): 10 Fluids Replaced: 800 Description of Procedure: The patient was taken to the OR where she was prepped and draped in dorsal lithotomy position. The weighted speculum was placed in the vagina and the anterior lip of the cervix was grasped with a single-tooth tenaculum. A paracervical block was administered with 10 cc of 1% lidocaine with dilute epinephrine solution.. The cervix was dilated serially with Hegar dilators. The Symphion hysteroscope was placed into the uterine cavity and the above findings were noted. Bilateral tubal ostia were identified. The uterus was noted to be slightly arcuate shaped but there was no clear septum and the cavity was relatively normal shape and adequate to allow IUD placement. The hysteroscope was removed. A sharp curettage was performed. I replaced the hysteroscope after the curettage and there were still no focal abnormalities noted. The Liletta IUD was then inserted in the usual sterile fashion and the strings cut to 2 cm. The uterus had sounded to 8.5 cm.The instruments were removed from the vagina. The specimen was handed off and sent to pathology. All sponge and needle counts were correct. Vaginal sweep was performed by me. The patient was awakened and taken to the recovery room in stable condition. Hysteroscopic fluid deficit is 50 cc of normal saline Grafts/Implants Used: Liletta IUD Procedure Start Time: 10:29 Procedure Stop Time: 10:43 Complications none Admit VTE Documentation VTE Present on Admission: No VTE Mechan Device Prophylaxis: SCD's VTE Pharm Prophylaxis ordered?: No
[2023-11-18] MEDS: Lidocaine 1% /Epi 1:100 (20ml) 20 ML Vial (10:30)
[2023-11-18] MEDS: Levonorgestrel IUD (Liletta) 1 EACH INTRA-UTER (10:35)
--- NOTE | 2023-11-18 11:36 | PCM.POST.ANE ---
Anesthesia: Postop Eval I Current Vital Signs Temperature: 97.5 F Pulse Rate: 67 Blood Pressure: 99/70 Respiratory Rate: 16 Pulse Ox: 98 Oxygen Delivery Method: Room Air Assessment Airway patent: Yes Spontaneous unlabored respirations: Yes Mental status: Awake and Calm nausea: No Vomiting: No Anesthesia Complication: No Fluid Hydration Crystalloid volume administer (ml): 800 Total IV fluid infused: 800 Progress Note Anesthesia document: Postop Eval 1 completed: Yes
--- NOTE | 2023-11-18 12:21 | POSTOPAN2_ITS ---
Anesthesia Postop Eval I Sum Postop Eval Completion status Anesthesia document: Postop Eval 1 completed: Yes Anesthesia Postop Eval I Summary Anesthesia Postop Eval I Summary: Anesthesia Postop Eval I: Assessment Summary Airway patent Yes 11/18/23 11:37 ESCALATOR ATTENDANT.[email or web address] Spontaneous unlabored Yes 11/18/23 11:37 ESCALATOR ATTENDANT.[email or web address] respirations Mental status Awake,Calm 11/18/23 11:37 ESCALATOR ATTENDANT.[email or web address] nausea No 11/18/23 11:37 ESCALATOR ATTENDANT.[email or web address] Vomiting No 11/18/23 11:37 ESCALATOR ATTENDANT.[email or web address] Anesthesia Postop Eval I: Fluid Summary Crystalloid volume administer 800 11/18/23 11:37 ESCALATOR ATTENDANT.[email or web address] (ml) Colloids volume administered ( ml) Blood Product volume administered (ml) Total IV fluid infused 800 11/18/23 11:37 ESCALATOR ATTENDANT.[email or web address] Anesthesia Postop Eval I: Summary Notes Anesthesia Complication No 11/18/23 11:37 ESCALATOR ATTENDANT.[email or web address] Anesthesia Complication Comment: Post-operative progress note Anesthesia: Postop Eval II Evaluation Mental status: Awake Pain Level: 0 nausea: No Vomiting: No
--- NOTE | 2023-11-18 12:21 | PCM.POSTANE2 ---
Anesthesia Postop Eval I Sum Postop Eval Completion status Anesthesia document: Postop Eval 1 completed: Yes Anesthesia Postop Eval I Summary Anesthesia Postop Eval I Summary: Anesthesia Postop Eval I: Assessment Summary Airway patent Yes 11/18/23 11:37 PERFORMANCE TEST ENGINEER.[email or web address] Spontaneous unlabored Yes 11/18/23 11:37 PERFORMANCE TEST ENGINEER.ENIDLOU respirations Mental status Awake,Calm 11/18/23 11:37 PERFORMANCE TEST ENGINEER.JBLOU nausea No 11/18/23 11:37 PERFORMANCE TEST ENGINEER.JBLOU Vomiting No 11/18/23 11:37 PERFORMANCE TEST ENGINEER.JBLOU Anesthesia Postop Eval I: Fluid Summary Crystalloid volume administer 800 11/18/23 11:37 PERFORMANCE TEST ENGINEER.JBLOU (ml) Colloids volume administered ( ml) Blood Product volume administered (ml) Total IV fluid infused 800 11/18/23 11:37 PERFORMANCE TEST ENGINEER.JBLOU Anesthesia Postop Eval I: Summary Notes Anesthesia Complication No 11/18/23 11:37 PERFORMANCE TEST ENGINEER.ENIDLOMonica Anesthesia Complication Comment: Post-operative progress note Anesthesia: Postop Eval II Evaluation Mental status: Awake Pain Level: 0 nausea: No Vomiting: No
== END 2023-11-18 12:03 | disposition home or self-care (01) ==
LOC: SDC 08:47 → AC 08:48
PROVIDERS: PCP Internal Medicine; Referring Provider Obstetrics & Gynecology; Visit Provider Obstetrics & Gynecology
PROC: 0UB98ZZ Excision of Uterus, Via Natural or Artificial Opening Endoscopic (ICD-10-PCS; CPT 58558; principal; 2023-11-18 09:55)
DX: N71.1 Chronic inflammatory disease of uterus (principal); N92.0 Excessive and frequent menstruation with regular cycle; N84.0 Polyp of corpus uteri; N80.03 Adenomyosis of the uterus; Z30.430 Encounter for insertion of intrauterine contraceptive device
CPT/HCPCS: 58558; 58300; 00952; 81025; 88305; J7120; J2405

== ENCOUNTER → 2024-05-29 | Outpatient (CLI) | payer BC, SELFPAY ==
[2024-05-29 16:54] LABS: Absolute Lymphocyte Count 1.78 X10^3/uL (0.83-4.51); Absolute Neutrophil Count 4.8 X10^3/uL (2.0-7.7); Basophil# 0.04 X10^3/uL; Basophil% 0.5 % (0-1); Eosinophil# 0.13 X10^3/uL; Eosinophils% 1.8 % (0-5); Hematocrit 40.6 % (37-47); Hemoglobin 13.6 g/dL (12.0-15.0); Lymphocyte # 1.78 X10^3/ul (0.83-4.51); Lymphocyte % 24.4 % (19-41); Mean Corp Hgb Conc 33.5 g/dL (32-36); Mean Corpuscular Volume 92.5 fL (81-99); Mean Platelet Vol. 11.5 fl (6.2-12.0); Monocyte# 0.56 X10^3/uL; Monocyte% 7.7 % (0-10); NRBC Flagged by Analyzer 0 % (0-5); Neutrophil # 4.78 X10^3/uL (2.7-7.7); Neutrophil % 65.3 % (47-70); Platelet Count 237 K/mm3 (150-450); RBC Distribution Width CV 12.4 % (11.6-14.6); RBC Distribution Width SD 42.3 fl (35.1-43.9); Red Blood Count 4.39 M/mm3 (4.2-5.4); White Blood Count 7.3 K/mm3 (4.4-11.0)
[2024-05-29 22:46] LABS: Ferritin 24 ng/mL (22-378); Iron 131 ug/dL (50-170); Iron Binding Capacity,Total 271 ug/dL (250-450); Iron Binding Capacity,Unsat 140 ug/dL (228-428)
[2024-05-29 23:10] LABS: ALB/GLOB Ratio 1.8 RATIO (0.9-2.4); AST(SGOT) 14 U/L (<=31); Alanine Aminotransfer ALT/SGPT 7 U/L (<=34); Albumin, Serum 4.4 g/dL (3.5-5.0); Alkaline Phosphatase 50 U/L (35-104); Anion Gap 11 (5-15); BUN 20 mg/dL (4-19); BUN/Creat Ratio 21.6 RATIO (10-20); Calcium,Total 9.4 mg/dL (7.6-11.0); Carbon Dioxide 23.5 mmol/L (21.0-32.0); Chloride 105 mmol/L (98-108); Cholesterol 144 mg/dL (<=200); Creatinine, Serum 0.93 mg/dL (0.70-1.20); EST Glomerular Filtration Rate 77 (>60); Globulin 2.5 g/dL (2.2-4.2); Glucose 96 mg/dL (70-99); High Density Lipoprotein 71 mg/dL; Low Density Lipoprotein Calc. 40 mg/dL; Potassium 3.8 mmol/L (3.3-5.1); Protein, Total 6.8 g/dL (5.9-8.4); Sodium Level 139 mmol/L (133-145); Total Bilirubin 0.44 mg/dL (0.00-1.30); Triglycerides 165 mg/dL; Very Low Density Lipoprotein 33 mg/dL (5-40); cholesterol:hdl ratio screen 2.04
== END | disposition home or self-care (01) ==
LOC: BIMLAB 14:58
PROVIDERS: PCP Internal Medicine; Referring Provider Internal Medicine; Visit Provider Internal Medicine
DX: Z00.00 Encounter for general adult medical examination without abnormal findings (principal); D50.9 Iron deficiency anemia, unspecified
CPT/HCPCS: 36415; 80053; 80061; 82728; 83540; 83550; 85025

== ENCOUNTER → 2024-06-15 | Outpatient (CLI) | payer BC, SELFPAY ==
--- NOTE | 2024-06-15 10:11 | BI_ITS ---
EXAM: SCRN MAMM (CAD)W/TEREZA BILAT 06/15/2024 CLINICAL HISTORY: F, Age 48 y/o , BREAST CANCER SCREENING TECHNIQUE: Bilateral screening digital breast tomosynthesis with 2D and 3D images. Computer aided detection. COMPARISON: Prior exam(s) dated 06/14/2023, 06/01/2022. FINDINGS: TISSUE DENSITY: The breast tissue is heterogenously dense, which may obscure small masses. The mammogram demonstrates that the patient has dense breasts. Supplemental screening with whole breast ultrasound or MRI may be considered for further evaluation. Bilateral Breast Mammographic Findings: No significant masses, calcifications or other abnormalities are identified. BI/SCRN MAMM (CAD)W/TEREZA BILAT IMPRESSION: Right Breast: BIRADS 1 NEGATIVE. Left Breast: BIRADS 1 NEGATIVE. OVERALL FINAL ASSESSMENT: BIRADS 1 NEGATIVE. RECOMMENDATION: Routine annual follow-up in 1 Year A letter with findings and recommendations will be mailed to the patient. Reading Location: [id number]
[2024-06-15 17:44] LABS: Anion Gap 11 (5-15); BUN 14 mg/dL (4-19); BUN/Creat Ratio 16.6 RATIO (10-20); Calcium,Total 9.2 mg/dL (7.6-11.0); Carbon Dioxide 23.8 mmol/L (21.0-32.0); Chloride 104 mmol/L (98-108); Creatinine, Serum 0.86 mg/dL (0.70-1.20); EST Glomerular Filtration Rate 84 (>60); Glucose 134 mg/dL (70-99); Potassium 3.9 mmol/L (3.3-5.1); Sodium Level 139 mmol/L (133-145)
== END | disposition home or self-care (01) ==
PROVIDERS: Internal Medicine Cardiovascular Disease; PCP Internal Medicine; Referring Provider Internal Medicine; Visit Provider Internal Medicine
DX: Z12.31 Encounter for screening mammogram for malignant neoplasm of breast (principal)
CPT/HCPCS: 36415; 77063; 77067; 80048

== ENCOUNTER → 2024-08-10 | Outpatient (CLI) | payer BC, SELFPAY ==
--- NOTE | 2024-08-10 08:02 | CT_ITS ---
PROCEDURE: CTA CHEST W/WO CONTRAST 08/10/2024 REASON FOR EXAM: BAV TECHNIQUE: CTA imaging of the chest with intravenous contrast. Multiplanar and multisequence images were obtained. CONTRAST: Isovue-300 50 VOLUME: 100 mL One or more dose reduction techniques were used (e.g., Automated exposure control, adjustment of the mA and/or kV according to patient size, use of iterative reconstruction technique). RADIATION DOSE SUMMARY: CTDlvol: 4.79 mGy DLP: 163 mGycm COMPARISON: None. FINDINGS: Aberrant right subclavian artery, normal variant. Unremarkable aortic root. Normal enhancement of the main pulmonary artery and right and left pulmonary arteries. Normal enhancement of the bilateral peripheral pulmonary arteries. There is no demonstrated pulmonary embolism. Normal thoracic aorta and visualized great vessels. There is no demonstrated aortic dissection. Normal heart and pericardium. Normal mediastinum. Normal hilar regions. Normal visualized trachea and bronchi. The lungs are well expanded. Normal pulmonary parenchyma. Normal pleura. Normal chest wall structures. Normal osseous structures. Normal visualized upper abdomen. No coronary artery calcifications. CT/CTA Chest W/WO Contrast IMPRESSION: No pulmonary embolus or aortic dissection is seen. Aberrant right subclavian artery, normal variant. Unremarkable aorta. Reading Location: [facility]
== END | disposition home or self-care (01) ==
LOC: CT 07:58
PROVIDERS: PCP Internal Medicine; Referring Provider Internal Medicine Cardiovascular Disease; Visit Provider Internal Medicine Cardiovascular Disease
DX: Q23.1 Congenital insufficiency of aortic valve (principal)
CPT/HCPCS: 71275; Q9967